=== PATIENT | male | born 1965 | race Caucasian/White ===

== ENCOUNTER 2017-02-15 17:37 | Inpatient (IN) | payer MEDICARE, MEDICAID ==
[~2017-02-15] VITALS: Ht 172.7 cm; Wt 81.1 kg
[~2017-02-15 17:37] MED LIST: DEPA500T3 PO; GABA100C4 PO; IBUP600 PO; METH500T3 PO; RISP0.5T20 PO
[2017-02-15 17:43] VITALS: BP 112/75; PULSE 81; RESP 16; TEMP 99.7; O2SAT 97
--- NOTE | 2017-02-15 18:02 | PD ---
HPI Chief Complaint: Suicide Ideation/Attempt Time Seen by Provider: 17:55 Travel History International Travel<30 days: No Contact w/Intl Traveler<30days: No Traveled to known affect area: No History of Present Illness HPI 51-year-old male came to the emergency room with history of racing thoughts, increasing agitation and suicidal ideation. His is here with him and says that he's been struggling with these symptoms for past few weeks. He went to the [facility] where they tried to adjust his medications. He also went to [facility] were also his medication was tried to be adjusted. Currently it has come to the point where nothing is helping and today he heard about the related to a suicide of a famous celebrity on TV and since then he has not been able to let go of appendicitis and the idea of killing himself. He has been unable to sit still and constantly fidgeting and dealing with racing thoughts. His was unable to take care of him like this and decided to bring him to the emergency room. Patient claims to be getting suicidal ideations and formulating a plan. He seems to be responding to internal stimuli as well. [facility] Past Medical History Narrative Medical List of his past medical, surgical, social and family history is reviewed from the nursing note. Anxiety: Yes Depression: Yes Cancer: No Cardiovascular Problems: Yes Chest Pain: Yes Diminished Hearing: Yes ([place]) Endocrine: No Genitourinary: No Musculoskeletal: Yes Neurologic: Yes (HYDROCEPHALUS) Psychiatric: No Reproductive: No Respiratory: No Schizophrenia: Yes Seizures: Yes Past Surgical History Cholecystectomy: Yes Genitourinary Surgery: Yes (HYDROCELE) Neurologic Surgery: Yes (APPLICATION PENETRATION TESTER SHUNT AND REVISION/MULTIPLE SUBDURAL/ANOTHER REVISION) Social History Alcohol Use: No Tobacco Use: No Substance Use: No Allergies-Medications (Allergen,Severity, Reaction): Coded Allergies: Chlorhexidine (Unverified Allergy, Severe, Rash, 02/15/17) Comments List of his allergies reviewed from the residential. Reported Meds & Prescriptions Reported Meds & Active Scripts Active Reported Benztropine (Benztropine Mesylate) 1 Mg Tab 1 Mg PO HS Thiamine (Thiamine HCl) 100 Mg Tab 100 Mg PO DAILY Primidone 50 Mg Tab 50 Mg PO TID Omeprazole 40 Mg Cap 40 Mg PO DAILY Montelukast (Montelukast Sodium) 10 Mg Tab 10 Mg PO HS Lamotrigine 25 Mg Chew 25 Mg CHEW BID Gabapentin 400 Mg Cap 400 Cap PO TID B-12 (Cyanocobalamin) 500 Mcg Tab 500 Mcg PO DAILY Baclofen 10 Mg Tab 10 Mg PO DAILY Alendronate (Alendronate Sodium) 70 Mg Tab 70 Mg PO Q7D Quetiapine (Quetiapine Fumarate) 25 Mg Tab 25 Mg PO DAILY Fluoxetine (Fluoxetine HCl) 20 Mg Cap 20 Mg PO DAILY Narrative Medication List of his home medications reviewed from the nursing note. Review of Systems Except as stated in HPI: all other systems reviewed are Neg Physical Exam Narrative GENERAL: Awake, alert, answering questions appropriately, constantly fidgeting in between SKIN: Focused skin assessment warm/dry. HEAD: Atraumatic. Normocephalic. EYES: Pupils equal and round. No scleral icterus. No injection or drainage. ENT: No nasal bleeding or discharge. Mucous membranes pink and moist. NECK: Trachea midline. No JVD. CARDIOVASCULAR: Regular rate and rhythm. No murmur appreciated. RESPIRATORY: No accessory muscle use. Clear to auscultation. Breath sounds equal bilaterally. GASTROINTESTINAL: Abdomen soft, non-tender, nondistended. Hepatic and splenic margins not palpable. MUSCULOSKELETAL: No obvious deformities. No clubbing. No cyanosis. No edema. NEUROLOGICAL: Awake and alert. No obvious cranial nerve deficits. Motor grossly within normal limits. Normal speech. PSYCHIATRIC: Appropriate mood and affect; insight and judgment normal. Pressure at speech, seems to be responding to internal stimuli Data Data Last Documented VS Vital Signs Date Time Temp Pulse Resp B/P Pulse Ox O2 Delivery O2 Flow Rate FiO2 02/16/17 06:00 68 18 104/60 96 Room Air 02/16/17 02:39 98.7 02/16/17 00:11 2 Orders Complete Blood Count With Diff (02/15/17 18:14) Comprehensive Metabolic Panel (02/15/17 18:14) Electrocardiogram (02/15/17 18:14) Psych Screen (02/15/17 18:14) Haloperidol Inj (Haldol Inj) (02/15/17 18:15) Lorazepam Inj (Ativan Inj) (02/15/17 18:15) Drug Screen, Random Urine (02/15/17 18:14) Diphenhydramine Inj (Benadryl Inj) (02/15/17 18:15) Sodium Chlor 0.9% 1000 Ml Inj (Ns 1000 M (02/15/17 21:30) Diet Regular Basic (02/16/17 Breakfast) Admit Order (Ed Use Only) (02/16/17 ) Admit To Inpatient Psych (02/16/17 ) Code Status (02/16/17 08:31) Vital Signs (Adult) JOSE MARIA.[email or web address].[id number] (02/16/17 08:31) Activity Oob Ad Delia (02/16/17 08:31) Level Of Observation (Psych) (02/16/17 08:31) Acetaminophen (Tylenol) (02/16/17 08:45) Magnesium Hydroxide Liq (Milk Of Magnesi (02/16/17 08:45) Al-Mag Hy-Si 40-40-4 Mg/Ml Liq (Mag-Al P (02/16/17 08:45) Basic Metabolic Panel (Bmp) (02/17/17 06:00) Lipid Profile (02/17/17 06:00) Hemoglobin (Hgb) A1c (02/17/17 06:00) Labs Laboratory Tests Test 02/15/17 02/15/17 18:35 18:45 Urine Opiates Screen NEG Urine Barbiturates Screen POS Urine Amphetamines Screen NEG Urine Benzodiazepines Screen NEG Urine Cocaine Screen NEG Urine Cannabinoids Screen NEG White Blood Count 6.4 TH/MM3 Red Blood Count 4.38 MIL/MM3 Hemoglobin 13.8 GM/DL Hematocrit 39.9 % Mean Corpuscular Volume 91.1 FL Mean Corpuscular Hemoglobin 31.4 PG Mean Corpuscular Hemoglobin 34.5 % Concent Red Cell Distribution Width 12.4 % Platelet Count 245 TH/MM3 Mean Platelet Volume 9.1 FL Neutrophils (%) (Auto) 67.9 % Lymphocytes (%) (Auto) 19.1 % Monocytes (%) (Auto) 9.7 % Eosinophils (%) (Auto) 2.6 % Basophils (%) (Auto) 0.7 % Neutrophils # (Auto) 4.4 TH/MM3 Lymphocytes # (Auto) 1.2 TH/MM3 Monocytes # (Auto) 0.6 TH/MM3 Eosinophils # (Auto) 0.2 TH/MM3 Basophils # (Auto) 0.0 TH/MM3 CBC Comment DIFF FINAL Differential Comment Sodium Level 141 MEQ/L Potassium Level 3.8 MEQ/L Chloride Level 108 MEQ/L Carbon Dioxide Level 23.6 MEQ/L Anion Gap 9 MEQ/L Blood Urea Nitrogen 18 MG/DL Creatinine 1.20 MG/DL Estimat Glomerular Filtration 64 ML/MIN Rate Random Glucose 104 MG/DL Calcium Level 8.9 MG/DL Total Bilirubin 0.3 MG/DL Aspartate Amino Transf 10 U/L (AST/SGOT) Alanine Aminotransferase 27 U/L (ALT/SGPT) Alkaline Phosphatase 127 U/L Total Protein 7.6 GM/DL Albumin 3.7 GM/DL MDM Medical Decision Making Medical Screen Exam Complete: Yes Emergency Medical Condition: Yes Medical Record Reviewed: Yes Interpretation(s) Twelve-lead EKG was reviewed by me. Normal sinus rhythm, normal axis, nonspecific ST-T wave changes. Heart rate of 81 bpm. Differential Diagnosis Psychosis, major depression, suicidal ideation Narrative Course 6:28 PM I'm planning to [place] act this patient. He will receive IM Haldol and Ativan to calm him down so that he does not escalate any further. Awaiting for medical clearance. Eventually he needs to be transferred to the main hospital to be seen by psych. In my opinion this patient should be admitted to inpatient psych since he is failing outpatient treatment. 7 PM case will be signed over to the oncoming ER physician. Procedures EKG Prior to Arrival: No Diagnosis Primary Impression: Psychosis Qualified Code: F29 - Psychosis, unspecified psychosis type Additional Impressions: Depression Qualified Code: F32.9 - Depression, unspecified depression type Suicidal ideation Failure of outpatient treatment Jovanny Dickson MD February 15, 2017 18:02
[2017-02-15] MEDS ORDERED: THIA100T PO (18:14)
[2017-02-15] MEDS ORDERED: OMEP40CA2 PO (18:14)
[2017-02-15] MEDS ORDERED: QUET1TAB7 PO (18:14)
[2017-02-15] MEDS ORDERED: [UNRECOGNIZED DRUG - CODE] PO (18:14)
[2017-02-15] MEDS ORDERED: FLUO20CA4 PO (18:14)
[2017-02-15] MEDS ORDERED: BACL10TA PO (18:14)
[2017-02-15] MEDS ORDERED: LAMO25CH CHEW (18:14)
[2017-02-15] MEDS ORDERED: MONT10TA4 PO (18:14)
[2017-02-15] MEDS ORDERED: PRIM50TA5 PO (18:14)
[2017-02-15] MEDS ORDERED: BENZ1TAB PO (18:14)
[2017-02-15] MEDS ORDERED: GABA400C5 PO (18:14)
[2017-02-15] MEDS ORDERED: ALEN1TAB48 PO (18:14)
[2017-02-15] MEDS ORDERED: LORazepam 2 MG/ML VIAL IM ONE (18:15)
[2017-02-15] MEDS ORDERED: HALOPERIDOL LACTATE 5 MG/ML AMP IM ONE (18:15)
[2017-02-15] MEDS ORDERED: diphenhydrAMINE HCL 50 MG/ML VIAL IM ONE (18:15)
[2017-02-15 18:51] LABS: AUTOMATED NEUTROPHIL # 4.4 TH/MM3 (1.8-7.7); BASOPHIL % 0.7 % (0.0-2.0); EOSINOPHIL # 0.2 TH/MM3 (0-0.4); EOSINOPHIL % 2.6 % (0.0-4.0); HEMATOCRIT 39.9 % (39.0-51.0); HEMO FLAGS DIFF FINAL; LYMPH % 19.1 % (9.0-44.0); LYMPHOCYTE # 1.2 TH/MM3 (1.0-4.8); MEAN CELL VOLUME 91.1 FL (80.0-100.0); MEAN CORPUSCULAR HEMOGLOBIN 31.4 PG (27.0-34.0); MEAN CORPUSCULAR HGB CONC 34.5 % (32.0-36.0); MONO % 9.7 % (0.0-8.0); NEUT % 67.9 % (16.0-70.0); PLATELET COUNT 245 TH/MM3 (150-450); RED BLOOD COUNT 4.38 MIL/MM3 (4.50-5.90); RED CELL DISTRIBUTION WIDTH 12.4 % (11.6-17.2); WHITE BLOOD COUNT 6.4 TH/MM3 (4.0-11.0)
[2017-02-15 18:59] LABS: CHLORIDE 108 MEQ/L (98-107); POTASSIUM 3.8 MEQ/L (3.5-5.1); SODIUM (NA) 141 MEQ/L (136-145)
[2017-02-15 19:02] LABS: ANION GAP 9 MEQ/L (5-15); BICARBONATE 23.6 MEQ/L (21.0-32.0); BLOOD UREA NITROGEN 18 MG/DL (7-18)
[2017-02-15 19:05] LABS: ALT (GPT) 27 U/L (12-78); AST (GOT) 10 U/L (15-37); GLOMERULAR FILTRATION RATE 64 ML/MIN (>89)
[2017-02-15 19:07] LABS: TOTAL BILIRUBIN ADULT 0.3 MG/DL (0.2-1.0)
[2017-02-15 19:08] LABS: ALKALINE PHOSPHATASE 127 U/L (45-117)
--- NOTE | 2017-02-15 19:08 | PD ---
Physical Exam Date Seen by Provider: February 15, 2017 Time Seen by Provider: 19:06 Narrative accepted in transfer of care from Dr Dickson GENERAL: Well-developed well-nourished male in no acute distress no respiratory distress; awakens with tactile and verbal stimulation after medication administration; patient cooperative no longer agitated. SKIN: Warm and dry. HEAD: Normocephalic. EYES: No scleral icterus. No injection or drainage. Bilateral pupils equal round reactive to light. NECK: Supple, trachea midline. No JVD or lymphadenopathy. CARDIOVASCULAR: Regular rate and rhythm without murmurs, gallops, or rubs. RESPIRATORY: Breath sounds equal bilaterally. No accessory muscle use. GASTROINTESTINAL: Abdomen soft, non-tender, nondistended. MUSCULOSKELETAL: No cyanosis, or edema. BACK: Nontender without obvious deformity. No CVA tenderness. Data Data Last Documented VS Vital Signs Date Time Temp Pulse Resp B/P Pulse Ox O2 Delivery O2 Flow Rate FiO2 02/16/17 01:16 71 18 108/75 98 02/16/17 00:11 Nasal Cannula 2 02/15/17 20:22 97.6 Orders Complete Blood Count With Diff (02/15/17 18:14) Comprehensive Metabolic Panel (02/15/17 18:14) Electrocardiogram (02/15/17 18:14) Psych Screen (02/15/17 18:14) Haloperidol Inj (Haldol Inj) (02/15/17 18:15) Lorazepam Inj (Ativan Inj) (02/15/17 18:15) Drug Screen, Random Urine (02/15/17 18:14) Diphenhydramine Inj (Benadryl Inj) (02/15/17 18:15) Sodium Chlor 0.9% 1000 Ml Inj (Ns 1000 M (02/15/17 21:30) Labs Laboratory Tests Test 02/15/17 02/15/17 18:35 18:45 Urine Opiates Screen NEG Urine Barbiturates Screen POS Urine Amphetamines Screen NEG Urine Benzodiazepines Screen NEG Urine Cocaine Screen NEG Urine Cannabinoids Screen NEG White Blood Count 6.4 TH/MM3 Red Blood Count 4.38 MIL/MM3 Hemoglobin 13.8 GM/DL Hematocrit 39.9 % Mean Corpuscular Volume 91.1 FL Mean Corpuscular Hemoglobin 31.4 PG Mean Corpuscular Hemoglobin 34.5 % Concent Red Cell Distribution Width 12.4 % Platelet Count 245 TH/MM3 Mean Platelet Volume 9.1 FL Neutrophils (%) (Auto) 67.9 % Lymphocytes (%) (Auto) 19.1 % Monocytes (%) (Auto) 9.7 % Eosinophils (%) (Auto) 2.6 % Basophils (%) (Auto) 0.7 % Neutrophils # (Auto) 4.4 TH/MM3 Lymphocytes # (Auto) 1.2 TH/MM3 Monocytes # (Auto) 0.6 TH/MM3 Eosinophils # (Auto) 0.2 TH/MM3 Basophils # (Auto) 0.0 TH/MM3 CBC Comment DIFF FINAL Differential Comment Sodium Level 141 MEQ/L Potassium Level 3.8 MEQ/L Chloride Level 108 MEQ/L Carbon Dioxide Level 23.6 MEQ/L Anion Gap 9 MEQ/L Blood Urea Nitrogen 18 MG/DL Creatinine 1.20 MG/DL Estimat Glomerular Filtration 64 ML/MIN Rate Random Glucose 104 MG/DL Calcium Level 8.9 MG/DL Total Bilirubin 0.3 MG/DL Aspartate Amino Transf 10 U/L (AST/SGOT) Alanine Aminotransferase 27 U/L (ALT/SGPT) Alkaline Phosphatase 127 U/L Total Protein 7.6 GM/DL Albumin 3.7 GM/DL [facility] Medical Record Reviewed: Yes Supervised Visit with ARAMIS: No Interpretation(s) CBC & BMP Diagram 02/15/17 18:45 Vital Signs Date Time Temp Pulse Resp B/P Pulse Ox O2 Delivery O2 Flow Rate FiO2 02/15/17 19:11 75 18 02/15/17 19:11 72 18 118/72 97 Room Air 02/15/17 17:43 99.7 81 16 112/75 97 uds: Barbiturates Differential Diagnosis accepted in transfer of care from Dr Dickson, please refer to her dictation Narrative Course accepted in transfer of care from Dr Dickson; awaiting labs for medical clearance and then transfer to [facility] for psychiatric evaluation At 7:30 PM patient's labs have been resulted and found to be grossly within normal range drug screen does show barbiturates; patient remains cooperative; in view of escalation of psychosis per prior provider patient has received Haldol and Ativan and Benadryl. Patient has been waiting for lab results and is aware he will be sent to [facility] for further mental health evaluation for has worsening depression and suicidal ideation. Patient is Medically Cleared for [facility] from [facility] to [facility]. Patient discussed with intake psych-screener/provider. reports that patient does take Fioricet for chronic headaches and took a dose today before coming to the hospital. does report that patient was seen for headaches and agitation at the end of December at [facility] where he is followed and had extensive evaluation and shunt shunt series and multiple imaging studies were all found to be normal neurosurgeon and specialist did not feel that his agitation depression and suicidal ideation was related to his history of hydrocephalus or DRY JANITOR shunt. No recent infectious process. At 21:20 PM told by patient's nurse at blood pressure has dropped to 80 systolic and at bedside states that patient frequently has low blood pressure especially when sleeping; patient given fluid bolus normal saline 1 L J Pod RN notified --holding patient transfer from [facility] to [facility] until patient more awake and medication effect diminished @ 12:30 patient remains drowsy after receiving Haldol Ativan and Benadryl as well as having taken Fioricet prior to arrival to the emergency department therefore patient also medically cleared initially for psych evaluation to go to [facility] now remains to drowsy to be assessed by psych screener therefore plan will be to transfer to [facility] from [facility] and reassessed while still in the emergency department as drowsiness appears to be an effect of combination of administered medications that are still causing somnolence. Physician Communication Physician Communication discussed with psych screenerKirsten RN, for J pod Diagnosis Primary Impression: Psychosis Qualified Code: F29 - Psychosis, unspecified psychosis type Additional Impressions: Suicidal ideation Depression Qualified Code: F32.9 - Depression, unspecified depression type Failure of outpatient treatment Fouzia Diane MD February 15, 2017 19:08
[2017-02-15 19:11] VITALS: BP 118/72; PULSE 72; RESP 18; O2SAT 97
[2017-02-15 19:13] LABS: AMPHETAMINE, URINE NEG (NEG)
[2017-02-15 19:15] LABS: BARBITURATES, URINE POS (NEG)
[2017-02-15 19:19] LABS: COCAINE, URINE NEG (NEG)
[2017-02-15 20:22] VITALS: BP 109/65; PULSE 76; RESP 18; TEMP 97.6; O2SAT 90
[2017-02-15] MEDS ORDERED: SODIUM CHLOR 0.9% 1000 ML INJ 1,000 ML IV ONE (21:30)
[2017-02-15 22:10] VITALS: BP 107/71; PULSE 74; RESP 18; O2SAT 99
[2017-02-16] VITALS (7 sets, daily range): BP systolic 104–184; BP diastolic 60–96; PULSE 57–91; RESP 16–18; TEMP 97.9–98.7; O2SAT 96–100
[2017-02-16] MEDS ORDERED: MAGNESIUM HYDROXIDE SUSP 30 ML CUP PO PRN ×2 (08:45→09:15)
[2017-02-16] MEDS ORDERED: ACETAMINOPHEN 325 MG TAB PO PRN (08:45)
[2017-02-16] MEDS ORDERED: ALUMINUM/MAGNESIUM/SIMETH 30 ML CUP PO PRN ×2 (08:45→09:15)
[2017-02-16] MEDS ORDERED: LORazepam 2 MG/ML VIAL IM PRN ×2 (09:15)
[2017-02-16] MEDS ORDERED: NICOTINE 21 MG/24 HR PATCH T-DERMAL SCH (09:15)
[2017-02-16] MEDS ORDERED: LORazepam 0.5 MG TAB PO PRN (09:15)
[2017-02-16] MEDS ORDERED: ALENDRONATE SODIUM 70 MG TAB PO SCH (13:15)
[2017-02-16] MEDS ORDERED: PILL SPLITTER OTHER PRN (14:00)
--- NOTE | 2017-02-16 15:47 | HHI.HP ---
Provisional Diagnosis Admission Date February 16, 2017 at 08:33 Garner I. Schizophrenia vs schizoaffective disorder Garner II. Deferred Garner III. UTI, HTN, seizures Garner IV. Family conflicts Garner V. 35 Certification of Person's Competence To Provide Express and Informed Consent I have personally examined Behzad Cintron , a person being served at [facility] on, February 16, 2017 15:32. Express and informed consent means consent voluntarily given in writing, by a competent person, after sufficient explanation and disclosure of the subject matter involved to enable the person to make a knowing and willful decision without any element of force, fraud, deceit, duress, or other form of constraint or coercion. This person is 18 years of age or older, is not now known to be incompetent to consent to treatment with a guardian advocate, and does not have a health care surrogate or proxy currently making medical treatment decisions. I have found this person to be one of the following: [] Competent to provide express and informed consent, as defined above, for voluntary admission to this facility and is competent to provide express and informed consent for treatment. He/she has the consistent capacity to make well reasoned, willful, and knowing decisions concerning his or her medical or mental health treatment. The person fully and consistently understands the purpose of the admission for examination/placement and is fully capable of personally exercising all rights assured under [place] Incompetent to provide express and informed consent to voluntary admission, and this is incompetent to provide express and informed consent to treatment. The person must be transferred to involuntary status and a petition for a guardian advocate filed with the Circuit Court. [X] Refusing to provide express and informed consent to voluntary admission but is competent to provide express and informed consent for treatment. The person must be discharged or transferred to involuntary status. Form shall be completed within 24 hours of a person's arrival at the receiving facility and filed in the clinical record of each person: 1. Admitted on a voluntary basis 2. Permitted to provide express and informed consent to his/her own treatment 3. Allowed to transfer from involuntary to voluntary status 4. Prior to permitting a person to consent to his or her own treatment after having been previously found incompetent to consent to treatment. History of Present Illness Capacity: Has Capacity HPI The patient is a 51-year-old man, domicile with his in [place], he has 2 kids, his unemployed, on SSI, with psychiatric history of schizophrenia, previous hospitalizations, no suicidal attempts, he is on Seroquel 50 mg, Prozac 20 mg, gabapentin 400 mg 3 times a day, he has medical history of TBI and seizures, who came to the emergency room with history of racing thoughts, increasing agitation and suicidal ideation. His is here with him and says that he's been struggling with these symptoms for past few weeks. He went to the [facility] where they tried to adjust his medications. He also went to [facility] ([facility] were also his medication was tried to be adjusted. Currently it has come to the point where nothing is helping and today he heard about the related to a suicide of a famous celebrity on TV and since then he has not been able to let go of appendicitis and the idea of killing himself. He has been unable to sit still and constantly fidgeting and dealing with racing thoughts of killing himself. His was unable to take care of him like this and decided to bring him to the emergency room. Patient claims to be getting suicidal ideations and formulating a plan. He seems to be responding to internal stimuli as well. Patient says that his main stressor is that he has a son who left his house since October and he doesn't know anything about his son since then. He also says that another stressor is that his house is full of rats. Patient seems to be very distressed, at times perplexed, guarded and internally stimulated. He doesn't have any specific suicidal plan," but I could not stop thinking about". He is oriented 3, no attention deficit, no gross cognitive impairment observed. Patient denies the use of illicit drugs and alcohol. Review of Systems Constitutional: DENIES: Diaphoretic episodes, Fatigue, Fever, Weight gain, Weight loss, Chills, Dizziness, Change in appetite, Night Sweats Endocrine: DENIES: Heat/cold intolerance, Polydipsia, Polyuria, Polyphagia Eyes: DENIES: Blurred vision, Diplopia, Eye inflammation, Eye pain, Vision loss , Photosensitivity, Double Vision Ears, nose, mouth, throat: DENIES: Tinnitus, Hearing loss, Vertigo, Nasal discharge, Oral lesions, Throat pain, Hoarseness, Ear Pain, Running Nose, Epistaxis, Sinus Pain, Toothache, Odynophagia Respiratory: DENIES: Apneas, Cough, Snoring, Wheezing, Hemoptysis, Sputum production, Shortness of breath Cardiovascular: DENIES: Chest pain, Palpitations, Syncope, Dyspnea on Exertion , PND, Lower Extremity Edema, Orthopnea, Claudication Gastrointestinal: DENIES: Abdominal pain, Black stools, Bloody stools, Constipation, Diarrhea, Nausea, Vomiting, Difficulty Swallowing, Anorexia Genitourinary: DENIES: Sexual dysfunction, Urinary frequency, Urinary incontinence, Urgency, Hematuria, Dysuria, Nocturia, Penile Discharge, Testicular Pain, Testicular Swelling Musculoskeletal: DENIES: Joint pain, Muscle aches, Stiffness, Joint Swelling, Back pain, Neck pain Integumentary: DENIES: Abnormal pigmentation, Nail changes, Pruritus, Rash Hematologic/lymphatic: DENIES: Bruising, Lymphadenopathy Immunologic/allergic: DENIES: Eczema, Urticaria Neurologic: DENIES: Abnormal gait, Headache, Localized weakness, Paresthesias, Seizures, Speech Problems, Tremor, Poor Balance Psychiatric: COMPLAINS OF: Depression, Suicidal Ideation, DENIES: Anxiety, Confusion, Mood changes, Hallucinations, Agitation, Homicidal Ideation, Delusions Past Psych History Violence risk - self (6 mos) Increased risk Substance Abuse History Drugs/Alcohol past 12 months He denies the use of drugs and alcohol Past Family Social History Coded Allergies: Chlorhexidine (Unverified Allergy, Severe, Rash, 02/15/17) Reported Medications Benztropine 1 Mg Tab1 Mg PO HS #30 TAB Ref 0 02/15/17 Thiamine 100 Mg [id number] Mg PO DAILY Ref 0 02/15/17 Primidone 50 Mg Tab50 Mg PO TID #60 TAB Ref 0 02/15/17 Omeprazole 40 Mg Cap40 Mg PO DAILY #30 CAP Ref 0 02/15/17 Montelukast 10 Mg Tab10 Mg PO HS #30 TAB Ref 0 02/15/17 Lamotrigine 25 Mg Chew25 Mg CHEW BID #60 TAB Ref 0 02/15/17 Gabapentin 400 Mg [id number] Cap PO TID #30 CAP Ref 0 02/15/17 Cyanocobalamin (B-12)500 Mcg Oei099 Mcg PO DAILY #1 BOTTLE Ref 0 02/15/17 Baclofen 10 Mg Tab10 Mg PO DAILY Ref 0 02/15/17 Alendronate 70 Mg Tab70 Mg PO Q7D #4 TAB Ref 0 02/15/17 Quetiapine 25 Mg Tab25 Mg PO DAILY #30 TAB Ref 0 02/15/17 Fluoxetine 20 Mg Cap20 Mg PO DAILY #30 CAP Ref 0 02/15/17 Current Medications Medications (Trade) Dose Ordered Sig/Kang Route Start Time Stop Time Status Last Admin (Ativan) 1 mg Q6H PRN PO 02/16/17 09:15 (Ativan Inj) 1 mg Q6H PRN IM 02/16/17 09:15 (Tylenol) 650 mg Q4H PRN PO 02/16/17 09:15 (Milk Of Magnesia Liq) 30 ml DAILY PRN PO 02/16/17 09:15 (Mag-Al Plus Susp Liq) 30 ml Q6H PRN PO 02/16/17 09:15 (Lioresal) 10 mg DAILY PO 02/16/17 13:15 (Cogentin) 1 mg HS PO 02/16/17 21:00 (Vitamin B12) 500 mcg DAILY PO 02/16/17 13:45 (PROzac) 20 mg DAILY PO 02/16/17 13:15 (Neurontin) 400 mg TID PO 02/16/17 18:00 (Singulair) 10 mg HS PO 02/16/17 21:00 (Mysoline) 50 mg TID PO 02/16/17 18:00 (SEROquel) 25 mg DAILY PO 02/16/17 13:15 (Vitamin B1) 100 mg DAILY PO 02/16/17 13:15 (LaMICtal) 25 mg BID PO 02/16/17 14:00 (Protonix) 40 mg DAILY PO 02/16/17 14:00 (Pill Splitter) 1 ea UNSCH PRN OTHER 02/16/17 14:00 Family History Patient denies psychiatric family history Social History Patient was born and raised in [place], he lives in [place] with , he has 2 kids, his college graduate, unemployed at this moment, on SSI Physical Exam A physical exam there is no EPS, no psychomotor retardation or agitation, no tremors, Vital Signs Vital Signs Date Time Temp Pulse Resp B/P Pulse Ox O2 Delivery O2 Flow Rate FiO2 02/16/17 10:48 98.6 72 16 131/70 98 02/16/17 06:00 Room Air 02/16/17 00:11 2 I/O 02/15/17 02/15/17 02/16/17 08:00 16:00 00:00 Intake Total 1000 ml Balance 1000 ml Lab Results Toxicology is positive for barbiturates, WBC is 6.4, Hgb 13.8, HCT 39, NA 141, K is 3.8, BUN 18, creatinine 1.2, AST 10, ALT 27 Mental Status Examination Appearance man, [facility], good hygiene, he seems to be restless, preoccupied, his cooperative Speech: Hesitant, Slow Orientation: x3 Memory: Unremarkable Thought Process: Logical, Goal Directed, Linear Thought Content: Unremarkable, Paranoid, Obsessions Language Reticent, constricted Attention and Concentration: Good Attention Remarks No attention deficit Suicidal Ideation: Yes (no specific plan) Previous Suicide Attempts: No Homicidal Ideation: No Previous Homicide Attempts: No Judgment: Poor Affect if Inappropriate: Blunt Mood: Irritable Motor Activity: Normal gait Assessment & Plan Problem List: (1) Psychosis Assessment & Plan: Psychiatric evaluation today patient seems to be internally stimulated, guarded, restless. Patient reports obsessive and intrusive thoughts of committing suicide, he doesn't have any intentions or plans. Some of his preoccupation seems to be valid, example he says that he has a son who has been disappear since October, in the other hand he says that "my house is full of rats". More collateral information will be important in order to complete psychiatric assessment and delineate what is real of what is not. However, patient seems to be acutely psychotic, with suicidal thoughts, his has expressed by phone to the ER team that she is very concerned about patient's mental health, so at this moment patient represents an acute danger to himself and he needs to be admitted in psychiatry for stabilization and safety. Will ask consult to psychiatry for a second opinion. I will restart his psychotropic benztropine 1 mg twice a day, gabapentin 400 mg 3 times a day, Prozac 20 mg, Seroquel 25 mg, lamotrigine 25 members twice a day. preparation room worker intervention for psychosocial assessment, collateral information, individual and group therapy, to start a safe discharge plan.. Extensive psycho education, supportive motivation provided. We will consult hospitalist to help with underlying medical conditions treatment. ICD Code: F29 Assessment & Plan Estimated LOS: days Problem Qualifiers (1) Psychosis: Qualified Code: F29 - Psychosis, unspecified psychosis type Angel Luis Cleaning MD February 16, 2017 15:47
[2017-02-16] MEDS: THIAMINE HCL 100 MG TAB PO SCH (16:00)
--- NOTE | 2017-02-16 16:00 | PD.CONS ---
HPI Service [facility] Hospitalists Consult Requested By Psychiatric service Reason for Consult Medical management Primary Care Physician Non-Staff Diagnoses: History of Present Illness Written by Debbi Castillo PA-C acting as scribe for Dr. Marvin on 02/16/17 at 16:03. 51 yo male with schizophrenia, history of hydrocephalus, TBI, seizure disorders , GERD, anxiety and depression admitted to psychiatric unit for issues with racing thoughts, increasing agitation and suicidal ideation. Patients reports patient has been struggling with these symptoms for weeks that became much worse today after he heard about the suicide of famous TV celebrity. Hospitalist services were consulted for medical management. Patient reports episodes of dizziness upon standing and bending over. He denies any associated shortness of breath, headache, chest pain, N/V, abdominal pain or vision changes. Patient denies any other complaints at this time. Review of Systems Except as stated in HPI: all other systems reviewed are Neg Past Family Social History Allergies: Coded Allergies: Chlorhexidine (Unverified Allergy, Severe, Rash, 02/15/17) Past Medical History Schizophrenia GERD Anxiety Depression Hydrocephalus Past Surgical History Cholecystectomy Hydrocele surgery STRAP STITCHER shunt and multiple revisions Reported Medications Benztropine 1 Mg Tab1 Mg PO HS #30 TAB Ref 0 02/15/17 Thiamine 100 Mg [id number] Mg PO DAILY Ref 0 02/15/17 Primidone 50 Mg Tab50 Mg PO TID #60 TAB Ref 0 02/15/17 Omeprazole 40 Mg Cap40 Mg PO DAILY #30 CAP Ref 0 02/15/17 Montelukast 10 Mg Tab10 Mg PO HS #30 TAB Ref 0 02/15/17 Lamotrigine 25 Mg Chew25 Mg CHEW BID #60 TAB Ref 0 02/15/17 Gabapentin 400 Mg [id number] Cap PO TID #30 CAP Ref 0 02/15/17 Cyanocobalamin (B-12)500 Mcg Mlm898 Mcg PO DAILY #1 BOTTLE Ref 0 02/15/17 Baclofen 10 Mg Tab10 Mg PO DAILY Ref 0 02/15/17 Alendronate 70 Mg Tab70 Mg PO Q7D #4 TAB Ref 0 02/15/17 Quetiapine 25 Mg Tab25 Mg PO DAILY #30 TAB Ref 0 02/15/17 Fluoxetine 20 Mg Cap20 Mg PO DAILY #30 CAP Ref 0 02/15/17 Active Ordered Medications Current Medications Medications (Trade) Dose Ordered Sig/Kang Route Start Time Stop Time Status Last Admin (Ativan) 1 mg Q6H PRN PO 02/16/17 09:15 (Ativan Inj) 1 mg Q6H PRN IM 02/16/17 09:15 (Tylenol) 650 mg Q4H PRN PO 02/16/17 09:15 (Milk Of Magnesia Liq) 30 ml DAILY PRN PO 02/16/17 09:15 (Mag-Al Plus Susp Liq) 30 ml Q6H PRN PO 02/16/17 09:15 (Lioresal) 10 mg DAILY PO 02/16/17 13:15 (Cogentin) 1 mg HS PO 02/16/17 21:00 (Vitamin B12) 500 mcg DAILY PO 02/16/17 13:45 (PROzac) 20 mg DAILY PO 02/16/17 13:15 (Neurontin) 400 mg TID PO 02/16/17 18:00 (Singulair) 10 mg HS PO 02/16/17 21:00 (Mysoline) 50 mg TID PO 02/16/17 18:00 (SEROquel) 25 mg DAILY PO 02/16/17 13:15 (Vitamin B1) 100 mg DAILY PO 02/16/17 13:15 (LaMICtal) 25 mg BID PO 02/16/17 14:00 (Protonix) 40 mg DAILY PO 02/16/17 14:00 (Pill Splitter) 1 ea UNSCH PRN OTHER 02/16/17 14:00 Family History CAD, father in his 40s, age 54 Social History Patient denies any tobacco use, alcohol consumption or illicit drug use. Patient is and lives with his and 2 children. He is currently unemployed, on SSI. Physical Exam Vital Signs Vital Signs Date Time Temp Pulse Resp B/P Pulse Ox O2 Delivery O2 Flow Rate FiO2 02/16/17 10:48 98.6 72 16 131/70 98 02/16/17 10:40 97.9 84 16 118/71 02/16/17 06:00 68 18 104/60 96 Room Air 02/16/17 02:39 98.7 57 18 137/80 98 Room Air 02/16/17 01:16 71 18 108/75 98 02/16/17 00:11 60 18 100 Nasal Cannula 2 02/16/17 00:11 60 18 107/74 100 Nasal Cannula 2 02/15/17 22:10 74 18 107/71 99 Nasal Cannula 2 02/15/17 22:10 74 18 99 Nasal Cannula 2 02/15/17 20:22 97.6 76 18 109/65 90 Nasal Cannula 2 02/15/17 20:22 76 18 96 Room Air 02/15/17 19:11 75 18 02/15/17 19:11 72 18 118/72 97 Room Air 02/15/17 17:43 99.7 81 16 112/75 97 Physical Exam GENERAL: This is a well-nourished, well-developed patient, in no apparent distress. Awake and alert. SKIN: No rashes, ecchymoses or lesions. Cool and dry. HEAD: Atraumatic. Normocephalic. No temporal or scalp tenderness. EYES: Pupils equal round and reactive. Extraocular motions intact. No scleral icterus. No injection or drainage. ENT: Nose without bleeding, purulent drainage or septal hematoma. Throat without erythema, tonsillar hypertrophy or exudate. Uvula midline. Airway patent. NECK: Trachea midline. No lymphadenopathy. Supple, nontender, no meningeal signs. CARDIOVASCULAR: Regular rate and rhythm without murmurs, gallops, or rubs. RESPIRATORY: Clear to auscultation. Breath sounds equal bilaterally. No wheezes , rales, or rhonchi. GASTROINTESTINAL: Abdomen soft, non-tender, nondistended. No hepato-splenomegaly , or palpable masses. No guarding. MUSCULOSKELETAL: Extremities without clubbing, cyanosis, or edema. No joint tenderness, effusion, or edema noted. No calf tenderness. NEUROLOGICAL: Awake and alert. Able to move all extremities. No focal neurologic findings appreciated. Normal speech. Laboratory Laboratory Tests Test 02/15/17 02/15/17 18:35 18:45 Urine Opiates Screen NEG Urine Barbiturates Screen POS Urine Amphetamines Screen NEG Urine Benzodiazepines Screen NEG Urine Cocaine Screen NEG Urine Cannabinoids Screen NEG White Blood Count 6.4 Red Blood Count 4.38 Hemoglobin 13.8 Hematocrit 39.9 Mean Corpuscular Volume 91.1 Mean Corpuscular Hemoglobin 31.4 Mean Corpuscular Hemoglobin 34.5 Concent Red Cell Distribution Width 12.4 Platelet Count 245 Mean Platelet Volume 9.1 Neutrophils (%) (Auto) 67.9 Lymphocytes (%) (Auto) 19.1 Monocytes (%) (Auto) 9.7 Eosinophils (%) (Auto) 2.6 Basophils (%) (Auto) 0.7 Neutrophils # (Auto) 4.4 Lymphocytes # (Auto) 1.2 Monocytes # (Auto) 0.6 Eosinophils # (Auto) 0.2 Basophils # (Auto) 0.0 CBC Comment DIFF FINAL Differential Comment Sodium Level 141 Potassium Level 3.8 Chloride Level 108 Carbon Dioxide Level 23.6 Anion Gap 9 Blood Urea Nitrogen 18 Creatinine 1.20 Estimat Glomerular Filtration 64 Rate Random Glucose 104 Calcium Level 8.9 Total Bilirubin 0.3 Aspartate Amino Transf 10 (AST/SGOT) Alanine Aminotransferase 27 (ALT/SGPT) Alkaline Phosphatase 127 Total Protein 7.6 Albumin 3.7 Result Diagram: 02/15/17184402/15/171844 Assessment and Plan Assessment and Plan 51 yo male with schizophrenia, history of hydrocephalus, TBI, seizure disorders , GERD, anxiety and depression admitted to psychiatric unit for issues with racing thoughts, increasing agitation and suicidal ideation. Patients reports patient has been struggling with these symptoms for weeks that became much worse today after he heard about the suicide of famous TV celebrity. Hospitalist services were consulted for medical management. Schizophrenia in patient with depression and anxiety with recent suicidal ideation - Management per psychiatric team History of TBI/hydrocephalus/seizure disorder - Continue with antiseizure medications - obtain Lamotrigine level Dizziness with postural changes - obtain orthostatic BP measurements GERD - Continue with PPI DVT prophylaxis - encourage ambulation This note was transcribed by gaudencio Castillo PA-C. I, Dr. Angelito Patton personally performed the history, physical exam, and medical decision making; and confirmed the accuracy of the information in the transcribed note. Authenticated by Dr. Angelito Patton on 02/16/17 at 16:37 Debbi Castillo February 16, 2017 16:00 Angelito Yeung MD February 28, 2017 23:59
[2017-02-16] MEDS: lamoTRIgine 25 MG TAB PO SCH ×2 (16:07→20:23)
[2017-02-16] MEDS: FLUoxetine HCL 20 MG CAP PO SCH (16:07)
[2017-02-16] MEDS: BACLOFEN 10 MG TAB PO SCH (16:07)
[2017-02-16] MEDS: CYANOCOBALAMIN 1,000 MCG TAB PO SCH (16:07)
[2017-02-16] MEDS: QUEtiapine FUMARATE 25 MG TAB PO SCH (16:08)
[2017-02-16] MEDS: PANTOPRAZOLE SOD 40 MG DELAYED RELEASE TAB PO SCH (16:08)
[2017-02-16] MEDS: GABAPENTIN 400 MG CAP PO SCH (19:00)
[2017-02-16] MEDS: PRIMIDONE 50 MG TAB PO SCH (19:00)
[2017-02-16] MEDS: MONTELUKAST SODIUM 10 MG TAB PO SCH (20:23)
[2017-02-16] MEDS ORDERED: BENZTROPINE MESYLATE 1 MG TAB PO SCH (21:00)
--- NOTE | 2017-02-16 21:39 | EKG ---
Date Performed: 02/15/2017 Time Performed: 18:12:20 PTAGE: 51 years EKG: Sinus rhythm Normal ECG PREVIOUS TRACING : 04/16/2014 08.58 Compared to prior tracing no significant change DOCTOR: Eder Griffin Interpretating Date/Time 02/16/2017 21:37:56
[2017-02-17 04:44] VITALS: BP_SYST 140; BP_SYST 144; BP_DIAS 83; BP_DIAS 94; PULSE 95; RESP 16; TEMP 97.9; O2SAT 98
[2017-02-17 08:57] LABS: ANION GAP 9 MEQ/L (5-15); BLOOD UREA NITROGEN 10 MG/DL (7-18); CHLORIDE 104 MEQ/L (98-107); GLOMERULAR FILTRATION RATE 67 ML/MIN (>89); HDL CHOLESTEROL 53.8 MG/DL (40.0-60.0); LDL CHOLESTEROL 136 MG/DL (0-99); POTASSIUM 3.9 MEQ/L (3.5-5.1); SODIUM (NA) 140 MEQ/L (136-145)
[2017-02-17] MEDS: BACLOFEN 10 MG TAB PO SCH (09:00)
[2017-02-17] MEDS: THIAMINE HCL 100 MG TAB PO SCH (09:00)
[2017-02-17] MEDS: PRIMIDONE 50 MG TAB PO SCH ×3 (10:30→17:43)
[2017-02-17] MEDS: GABAPENTIN 400 MG CAP PO SCH ×3 (10:30→17:43)
[2017-02-17] MEDS: lamoTRIgine 25 MG TAB PO SCH ×2 (10:30→21:19)
[2017-02-17] MEDS: FLUoxetine HCL 20 MG CAP PO SCH (10:30)
[2017-02-17] MEDS: QUEtiapine FUMARATE 25 MG TAB PO SCH (10:30)
[2017-02-17] MEDS: PANTOPRAZOLE SOD 40 MG DELAYED RELEASE TAB PO SCH (10:31)
[2017-02-17] MEDS: CYANOCOBALAMIN 1,000 MCG TAB PO SCH (10:31)
[2017-02-17 13:36] LABS: HEMOGLOBIN A1a 0.9 %; HEMOGLOBIN A1b 1.6 %; HEMOGLOBIN Ao 86.1 %; HEMOGLOBIN P3 5.1 %
--- NOTE | 2017-02-17 13:55 | HHI.PYPN ---
Subjective Remarks This is a request for second opinion. Patient was seen, case discussed with nursing, and admission note reviewed, patient describes various stressors that are contributing to his suicidal ideation. His son, feeling like a failure, that life would be better without him. Continues to have fleeting suicidal thoughts with no intent or plan. Denies a history of suicide attempts. Patient appears anxious tapping his feet moving his hands possibility of akathisia, however he also has a seizure disorder and is on a low-dose of antipsychotic. Auditory hallucinations, and go are not command and tell him things like yes or no. No delusions elicited. Objective Alert: Yes [place]: Person, Place, Date Mood: Calm Affect: Blunted Memory Intact: Comment (grossly intact) Hallucinations: Auditory (tell him yes or no) Delusions: No Delusion Type: Other Suicidal: Ideation (fleeting with no intent or plan, seen engaging with others) Homicidal: Ideation (denies) Insight/Judgment Fair Labs Test 02/17/17 07:25 Sodium Level 140 MEQ/L Potassium Level 3.9 MEQ/L Chloride Level 104 MEQ/L Carbon Dioxide Level 27.0 MEQ/L Anion Gap 9 MEQ/L Blood Urea Nitrogen 10 MG/DL Creatinine 1.14 MG/DL Estimat Glomerular Filtration 67 ML/MIN Rate Random Glucose 94 MG/DL Calcium Level 9.1 MG/DL Triglycerides Level 117 MG/DL Cholesterol Level 213 MG/DL LDL Cholesterol 136 MG/DL HDL Cholesterol 53.8 MG/DL Cholesterol/HDL Ratio 3.95 RATIO Vitals/IOs Vital Signs Date Time Temp Pulse Resp B/P Pulse Ox O2 Delivery O2 Flow Rate FiO2 02/17/17 04:44 97.9 95 16 144/94 98 140/83 02/16/17 06:00 Room Air 02/16/17 00:11 2 Assessment & Plan Problem List: (1) Psychosis ICD Code: F29 Assessment & Plan I agree with the first opinion to continue petition. Criteria include suicidal ideation. Increase Cogentin to twice a day Justification for Cont. Inpt. Patient will decompensate in a less restrictive setting Problem Qualifiers (1) Psychosis: Qualified Code: F29 - Psychosis, unspecified psychosis type Camron Nice DO February 17, 2017 13:55
[2017-02-17] MEDS: BENZTROPINE MESYLATE 1 MG TAB PO SCH ×2 (16:18→21:19)
[2017-02-17 16:35] VITALS: BP 134/74; PULSE 98; RESP 18; TEMP 97.8; O2SAT 99
[2017-02-17] MEDS: MONTELUKAST SODIUM 10 MG TAB PO SCH (21:19)
[2017-02-18 05:51] VITALS: BP 130/75; PULSE 79; RESP 18; TEMP 97.6; O2SAT 96
[2017-02-18] MEDS: FLUoxetine HCL 20 MG CAP PO SCH (08:27)
[2017-02-18] MEDS: PANTOPRAZOLE SOD 40 MG DELAYED RELEASE TAB PO SCH (08:28)
[2017-02-18] MEDS: THIAMINE HCL 100 MG TAB PO SCH (08:28)
[2017-02-18] MEDS: QUEtiapine FUMARATE 25 MG TAB PO SCH (08:28)
[2017-02-18] MEDS: BENZTROPINE MESYLATE 1 MG TAB PO SCH ×2 (08:28→21:33)
[2017-02-18] MEDS: PRIMIDONE 50 MG TAB PO SCH ×3 (08:28→18:00)
[2017-02-18] MEDS: BACLOFEN 10 MG TAB PO SCH (08:28)
[2017-02-18] MEDS: CYANOCOBALAMIN 1,000 MCG TAB PO SCH (08:28)
[2017-02-18] MEDS: GABAPENTIN 400 MG CAP PO SCH ×3 (08:28→18:00)
[2017-02-18] MEDS: lamoTRIgine 25 MG TAB PO SCH ×2 (08:28→21:33)
--- NOTE | 2017-02-18 14:55 | HHI.PYPN ---
Subjective Remarks Patient was seen and case discussed with nursing. His fidgeting, possible akathisia has improved the slightly higher dose of Cogentin. Patient describes an increasing depressed mood with fleeting suicidal thoughts. His no intent or plan of hurting himself in the hospital. Some paranoia concerning his medications. Behaving well on the unit Objective Alert: Yes [place]: Person, Place, Date Mood: Calm Affect: Restricted Memory Intact: Comment (grossly intact) Hallucinations: Auditory (nonspecific) Delusions: No Delusion Type: Other Suicidal: Ideation (fleeting with no intent or plan, seen engaging with others) Homicidal: Ideation (denies) Insight/Judgment Poor Vitals/IOs Vital Signs Date Time Temp Pulse Resp B/P Pulse Ox O2 Delivery O2 Flow Rate FiO2 02/18/17 05:51 97.6 79 18 130/75 96 02/16/17 06:00 Room Air 02/16/17 00:11 2 Assessment & Plan Problem List: (1) Psychosis ICD Code: F29 Assessment & Plan Continue current treatment plan Justification for Cont. Inpt. Patient will decompensate in a less restrictive setting Problem Qualifiers (1) Psychosis: Qualified Code: F29 - Psychosis, unspecified psychosis type Camron Nice DO February 18, 2017 14:55
[2017-02-18 20:25] VITALS: BP 135/78; PULSE 93; RESP 18; TEMP 98.6; O2SAT 96
[2017-02-18] MEDS: MONTELUKAST SODIUM 10 MG TAB PO SCH (21:33)
[2017-02-19] MEDS: LORazepam 1 MG TAB PO PRN (04:06)
[2017-02-19 05:29] VITALS: BP 154/80; PULSE 107; RESP 18; TEMP 98; O2SAT 95
[2017-02-19] MEDS: GABAPENTIN 400 MG CAP PO SCH ×3 (08:35→18:00)
[2017-02-19] MEDS: BENZTROPINE MESYLATE 1 MG TAB PO SCH ×2 (08:35→21:16)
[2017-02-19] MEDS: THIAMINE HCL 100 MG TAB PO SCH (08:35)
[2017-02-19] MEDS: BACLOFEN 10 MG TAB PO SCH (08:35)
[2017-02-19] MEDS: lamoTRIgine 25 MG TAB PO SCH ×2 (08:35→21:16)
[2017-02-19] MEDS: CYANOCOBALAMIN 1,000 MCG TAB PO SCH (08:35)
[2017-02-19] MEDS: PANTOPRAZOLE SOD 40 MG DELAYED RELEASE TAB PO SCH (08:35)
[2017-02-19] MEDS: FLUoxetine HCL 20 MG CAP PO SCH (08:35)
[2017-02-19] MEDS: PRIMIDONE 50 MG TAB PO SCH ×2 (08:35→12:23)
--- NOTE | 2017-02-19 08:41 | HHI.PYPN ---
Subjective Remarks Patient was seen today for psychiatric evaluation, he was found in the day room , having breakfast, calm and cooperative, he says that today he feels a little bit better, but still feeling down, very concerned about multiple situations in his life, he brings again the issue of his son disappeared since October 2016. Patient seems to be internally stimulated, staring often, becoming guarded, paranoid edges his medications. However redirectable and sensitive to the medical recommendations. He denies suicidal ideation, but reports having suicidal thoughts. He contracted for safety in the unit. During the week and patient was mostly isolated in the unit, interacting very poorly with staff and peers. But compliant with medications. He doesn't report side effects. During this evaluation no restlessness or EPS signs present. Review of Systems Other No somatic complaints Objective Alert: Yes [place]: Person, Place, Date Mood: Calm Affect: Flat Memory Intact: Comment (grossly intact) Hallucinations: Other (patient denies auditory and visual hallucinations) Delusions: No Delusion Type: Paranoid, Other Suicidal: Ideation (suicidal thoughts, no plan) Homicidal: Ideation (denies) Insight/Judgment Poor Vitals/IOs Vital Signs Date Time Temp Pulse Resp B/P Pulse Ox O2 Delivery O2 Flow Rate FiO2 02/19/17 05:29 98.0 107 18 154/80 95 02/16/17 06:00 Room Air 02/16/17 00:11 2 Assessment & Plan Problem List: (1) Psychosis Assessment & Plan: Patient continues to report depressive symptoms, he also seems to be internally stimulated, guarded and paranoid. We will increase Seroquel to 50 mg twice a day. No EPS seems to be present. Extensive psycho education provided. ICD Code: F29 Assessment & Plan Estimated LOS: days Justification for Cont. Inpt. Patient continues to be acutely psychotic, very depressed and needs to continue psychiatric inpatient level of care for stabilization and safety. Problem Qualifiers (1) Psychosis: Qualified Code: F29 - Psychosis, unspecified psychosis type Angel Luis Cleaning MD February 19, 2017 08:41
[2017-02-19] MEDS: QUEtiapine FUMARATE 25 MG TAB PO SCH (09:00)
--- NOTE | 2017-02-19 11:59 | HHI.PR ---
Subjective Remarks Follow-up on patient with a history of TBI, seizure disorders, hydrocephalus, anxiety, depression and schizophrenia. Patient seen and examined today. Patient denies any acute medical complaints. Denies any fever/chills, nausea/ vomiting, dizziness, headache, shortness of breath, chest pain or abdominal pain. Does report intermittent numbness and tingling in the calves of both lower legs which is controlled with gabapentin. Objective Vitals Vital Signs Date Time Temp Pulse Resp B/P Pulse Ox O2 Delivery O2 Flow Rate FiO2 02/19/17 05:29 98.0 107 18 154/80 95 02/18/17 20:25 98.6 93 18 135/78 96 Result Diagram: 02/15/17 1845 02/17/17 0725 Objective Remarks GENERAL: This is a well-nourished, well-developed patient, in no apparent distress. Awake and alert. SKIN: No rashes, ecchymoses or lesions. Cool and dry. HEAD: Atraumatic. Normocephalic. No temporal or scalp tenderness. EYES: Extraocular motions intact. No scleral icterus. No injection or drainage. CARDIOVASCULAR: Regular rate and rhythm without murmurs, gallops, or rubs. RESPIRATORY: Clear to auscultation. Breath sounds equal bilaterally. No wheezes , rales, or rhonchi. GASTROINTESTINAL: Abdomen soft, non-tender, nondistended. No hepato-splenomegaly , or palpable masses. No guarding. MUSCULOSKELETAL: Extremities without clubbing, cyanosis, or edema. No joint tenderness, effusion, or edema noted. No calf tenderness. NEUROLOGICAL: Awake and alert. Able to move all extremities. Strength 5 out of 5 bilateral upper and lower extremities. No focal neurologic findings appreciated. Normal speech. Medications and IVs Current Medications Medications (Trade) Dose Ordered Sig/Kang Route Start Time Stop Time Status Last Admin (Ativan) 1 mg Q6H PRN PO 02/16/17 09:15 02/19/17 04:06 (Ativan Inj) 1 mg Q6H PRN IM 02/16/17 09:15 (Tylenol) 650 mg Q4H PRN PO 02/16/17 09:15 (Milk Of Magnesia Liq) 30 ml DAILY PRN PO 02/16/17 09:15 (Mag-Al Plus Susp Liq) 30 ml Q6H PRN PO 02/16/17 09:15 (Lioresal) 10 mg DAILY PO 02/16/17 13:15 02/19/17 08:35 (Vitamin B12) 500 mcg DAILY PO 02/16/17 13:45 02/19/17 08:35 (PROzac) 20 mg DAILY PO 02/16/17 13:15 02/19/17 08:35 (Neurontin) 400 mg TID PO 02/16/17 18:00 02/19/17 08:35 (Singulair) 10 mg HS PO 02/16/17 21:00 02/18/17 21:33 (Mysoline) 50 mg TID PO 02/16/17 18:00 02/19/17 08:35 (Vitamin B1) 100 mg DAILY PO 02/16/17 13:15 02/19/17 08:35 (LaMICtal) 25 mg BID PO 02/16/17 14:00 02/19/17 08:35 (Protonix) 40 mg DAILY PO 02/16/17 14:00 02/19/17 08:35 (Pill Splitter) 1 ea UNSCH PRN OTHER 02/16/17 14:00 (Cogentin) 1 mg BID PO 02/17/17 14:00 02/19/17 08:35 (SEROquel) 50 mg DAILY PO 02/19/17 09:00 02/19/17 09:00 A/P Assessment and Plan 51 yo male with schizophrenia, history of hydrocephalus, TBI, seizure disorders , GERD, anxiety and depression admitted to psychiatric unit for issues with racing thoughts, increasing agitation and suicidal ideation. Patients reports patient has been struggling with these symptoms for weeks that became much worse today after he heard about the suicide of famous TV celebrity. Hospitalist services were consulted for medical management. 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 Marvin, patient and nursing staff Debbi Castillo February 19, 2017 11:59
[2017-02-19] MEDS: MONTELUKAST SODIUM 10 MG TAB PO SCH (21:16)
[2017-02-19 21:37] VITALS: BP 141/73; PULSE 75; RESP 18; TEMP 98.1; O2SAT 98
[2017-02-20 05:33] VITALS: BP 142/85; PULSE 112; RESP 20; TEMP 97.8; O2SAT 94
[2017-02-20] MEDS: PRIMIDONE 50 MG TAB PO SCH ×4 (09:00→17:11)
[2017-02-20] MEDS: GABAPENTIN 400 MG CAP PO SCH ×3 (09:00→17:11)
[2017-02-20] MEDS: THIAMINE HCL 100 MG TAB PO SCH (09:00)
[2017-02-20] MEDS: CYANOCOBALAMIN 1,000 MCG TAB PO SCH (09:05)
[2017-02-20] MEDS: BENZTROPINE MESYLATE 1 MG TAB PO SCH ×2 (09:05→20:19)
[2017-02-20] MEDS: QUEtiapine FUMARATE 25 MG TAB PO SCH (09:05)
[2017-02-20] MEDS: BACLOFEN 10 MG TAB PO SCH (09:05)
[2017-02-20] MEDS: PANTOPRAZOLE SOD 40 MG DELAYED RELEASE TAB PO SCH (09:06)
[2017-02-20] MEDS: FLUoxetine HCL 20 MG CAP PO SCH (09:06)
[2017-02-20] MEDS: lamoTRIgine 25 MG TAB PO SCH ×2 (09:06→20:19)
--- NOTE | 2017-02-20 14:14 | HHI.PYPN ---
Subjective Remarks Patient was seen today for psychiatric reevaluation, patient reports sleeping very poorly, to continue with depressed mood, he has been thinking persistently "about the rats in my house", he endorses suicidal ideation, but he doesn't have any plan. Patient is also restless, oddly related, seems to be internally preoccupied, oriented 3, compliant with medications, no significant side effects. Review of Systems Psychiatric: COMPLAINS OF: Depression, Suicidal Ideation (no plan) Objective Alert: Yes [place]: Person, Place, Date Mood: Calm, Depressed Affect: Flat Memory Intact: Comment (grossly intact) Hallucinations: Other (patient denies auditory and visual hallucinations) Delusions: No Delusion Type: Paranoid, Other Suicidal: Ideation (suicidal thoughts, no plan) Homicidal: Ideation (denies) Insight/Judgment Poor Vitals/IOs Vital Signs Date Time Temp Pulse Resp B/P Pulse Ox O2 Delivery O2 Flow Rate FiO2 02/20/17 05:33 97.8 112 20 142/85 94 Assessment & Plan Problem List: (1) Psychosis Assessment & Plan: Will increase Seroquel to 100 mg at bedtime for psychosis, also would increase Prozac to 40 mg daily for depression. ICD Code: F29 Assessment & Plan Estimated LOS: days Justification for Cont. Inpt. Patient is to continue psychiatric hospitalization for stabilization and safety. Problem Qualifiers (1) Psychosis: Qualified Code: F29 - Psychosis, unspecified psychosis type Angel Luis Cleaning MD February 20, 2017 14:14
[2017-02-20 17:57] VITALS: BP 135/84; PULSE 107; RESP 18; TEMP 98.1; O2SAT 94
[2017-02-20] MEDS: ACETAMINOPHEN 325 MG TAB PO PRN (20:19)
[2017-02-20] MEDS: QUEtiapine FUMARATE 100 MG TAB PO SCH (20:19)
[2017-02-20] MEDS: MONTELUKAST SODIUM 10 MG TAB PO SCH (20:19)
[2017-02-21 05:02] VITALS: BP 116/54; PULSE 66; RESP 18; TEMP 97.9; O2SAT 98
[2017-02-21] MEDS: LORazepam 1 MG TAB PO PRN (06:41)
[2017-02-21] MEDS ORDERED: FLUoxetine HCL 20 MG CAP PO SCH (09:00)
[2017-02-21] MEDS: BENZTROPINE MESYLATE 1 MG TAB PO SCH ×2 (09:31→21:08)
[2017-02-21] MEDS: PANTOPRAZOLE SOD 40 MG DELAYED RELEASE TAB PO SCH (09:31)
[2017-02-21] MEDS: CYANOCOBALAMIN 1,000 MCG TAB PO SCH (09:31)
[2017-02-21] MEDS: lamoTRIgine 25 MG TAB PO SCH ×2 (09:31→21:08)
[2017-02-21] MEDS: THIAMINE HCL 100 MG TAB PO SCH (09:31)
[2017-02-21] MEDS: GABAPENTIN 400 MG CAP PO SCH ×3 (09:32→18:16)
[2017-02-21] MEDS: PRIMIDONE 50 MG TAB PO SCH ×3 (09:32→18:16)
[2017-02-21] MEDS: BACLOFEN 10 MG TAB PO SCH (09:32)
--- NOTE | 2017-02-21 13:21 | HHI.PYPN ---
Subjective Remarks On psychiatric evaluation today patient is found in the recreational area of the unit, he reports to feel a little bit better, but still depressed, very preoccupied about his son who disappear in October "and we haven't known anything about him since then"patient also reports difficulty sleeping at night due to racing thoughts, "a lot of thoughts in my mind, especially thinking about the rats in my house, I cannot stop thinking about". On the psychiatric evaluation patient is restless, he has fine tremors in both hands, he seems to be internally preoccupied, reports suicidal thoughts, but denies suicidal ideation, denies this ideation, denies visual and auditory hallucinations. Patient is oriented 3, compliant with medications, no agitation or aggressive behavior reported Review of Systems Other No somatic complaints Objective Alert: Yes [place]: Person, Place, Date Mood: Depressed Affect: Flat Memory Intact: Comment (grossly intact) Hallucinations: Other (patient seems to be internally stimulated) Delusions: No Delusion Type: Paranoid, Other Suicidal: Ideation (suicidal thoughts, no plan) Homicidal: Ideation (denies) Insight/Judgment Poor Vitals/IOs Vital Signs Date Time Temp Pulse Resp B/P Pulse Ox O2 Delivery O2 Flow Rate FiO2 02/21/17 05:02 97.9 66 18 116/54 98 Intake and Output 02/20/17 02/20/17 02/21/17 08:00 16:00 00:00 Intake Total 360 ml Balance 360 ml Assessment & Plan Problem List: (1) Psychosis Assessment & Plan: Patient continues to show restlessness, blocking thought, intrusive thoughts of rats invading his house, racing thoughts, suicidal thoughts, but no plan. Would raise Prozac to 60 mg to help with can of obsessive thoughts, we'll continue Seroquel same dose. ICD Code: F29 Assessment & Plan Estimated LOS: days Justification for Cont. Inpt. Patient continues to show persistent internal stimulation, intrusive thoughts, suicidal thoughts and needs to continue inpatient level of care. Problem Qualifiers (1) Psychosis: Qualified Code: F29 - Psychosis, unspecified psychosis type Angel Luis Cleaning MD February 21, 2017 13:21
--- NOTE | 2017-02-21 17:56 | HHI.PR ---
Subjective Remarks Patient denies cp/sob denies seizures vital signs stable Objective Vitals Vital Signs Date Time Temp Pulse Resp B/P Pulse Ox O2 Delivery O2 Flow Rate FiO2 02/21/17 05:02 97.9 66 18 116/54 98 02/20/17 17:57 98.1 107 18 135/84 94 I/O 02/20/17 02/20/17 02/20/17 02/21/17 02/21/17 02/21/17 07:00 15:00 23:00 07:00 15:00 23:00 Intake Total 360 ml Balance 360 ml Intake Oral 360 ml Result Diagram: 02/17/17 0725 Objective Remarks GENERAL: This is a well-nourished, well-developed patient, in no apparent distress. Awake and alert. SKIN: No rashes, ecchymoses or lesions. Cool and dry. HEAD: Atraumatic. Normocephalic. No temporal or scalp tenderness. EYES: Extraocular motions intact. No scleral icterus. No injection or drainage. CARDIOVASCULAR: Regular rate and rhythm without murmurs, gallops, or rubs. RESPIRATORY: Clear to auscultation. Breath sounds equal bilaterally. No wheezes , rales, or rhonchi. GASTROINTESTINAL: Abdomen soft, non-tender, nondistended. No hepato-splenomegaly , or palpable masses. No guarding. MUSCULOSKELETAL: Extremities without clubbing, cyanosis, or edema. No joint tenderness, effusion, or edema noted. No calf tenderness. NEUROLOGICAL: Awake and alert. Able to move all extremities. Strength 5 out of 5 bilateral upper and lower extremities. No focal neurologic findings appreciated. Normal speech. Medications and IVs Current Medications Medications (Trade) Dose Ordered Sig/Kang Route Start Time Stop Time Status Last Admin (Ativan) 1 mg Q6H PRN PO 02/16/17 09:15 02/21/17 06:41 (Ativan Inj) 1 mg Q6H PRN IM 02/16/17 09:15 (Tylenol) 650 mg Q4H PRN PO 02/16/17 09:15 02/20/17 20:19 (Milk Of Magnesia Liq) 30 ml DAILY PRN PO 02/16/17 09:15 (Mag-Al Plus Susp Liq) 30 ml Q6H PRN PO 02/16/17 09:15 (Lioresal) 10 mg DAILY PO 02/16/17 13:15 02/21/17 09:32 (Vitamin B12) 500 mcg DAILY PO 02/16/17 13:45 02/21/17 09:31 (Neurontin) 400 mg TID PO 02/16/17 18:00 02/21/17 14:46 (Singulair) 10 mg HS PO 02/16/17 21:00 02/20/17 20:19 (Mysoline) 50 mg TID PO 02/16/17 18:00 02/21/17 14:46 (Vitamin B1) 100 mg DAILY PO 02/16/17 13:15 02/21/17 09:31 (LaMICtal) 25 mg BID PO 02/16/17 14:00 02/21/17 09:31 (Protonix) 40 mg DAILY PO 02/16/17 14:00 02/21/17 09:31 (Pill Splitter) 1 ea UNSCH PRN OTHER 02/16/17 14:00 (Cogentin) 1 mg BID PO 02/17/17 14:00 02/21/17 09:31 (SEROquel) 100 mg HS PO 02/20/17 21:00 02/20/17 20:19 (PROzac) 60 mg DAILY PO 02/22/17 09:00 Urinary Catheter: No Vascular Central Line Catheter: No A/P Assessment and Plan 51 yo male with schizophrenia, history of hydrocephalus, TBI, seizure disorders , GERD, anxiety and depression admitted to psychiatric unit for issues with racing thoughts, increasing agitation and suicidal ideation. Patients reports patient has been struggling with these symptoms for weeks that became much worse today after he heard about the suicide of famous TV celebrity. Hospitalist services were consulted for medical management. Schizophrenia in patient with depression and anxiety with recent suicidal ideation - Management per psychiatric team History of TBI/hydrocephalus/seizure disorder - Continue with antiseizure medications - Lamotrigine level pending but no seizures Dizziness with postural changes - orthostatic BP measurements obtained and no significant postural changes noted - Asymptomatic at present Dyslipidemia - does not meet recommendation for statin therapy per ASCVD electrical estimator - Recommend dietary modification - Follow up with primary care physician as outpatient for continued evaluation Neuropathy - intermittent - improved with Gabapentin - discussed possible EMG as outpatient GERD - Continue with PPI DVT prophylaxis - encourage ambulation Will sign off. Please reconsult if needed. Marvin Tesfaye,Angelito MD February 21, 2017 17:56
[2017-02-21 18:05] VITALS: BP 153/81; PULSE 101; RESP 18; TEMP 97.8; O2SAT 98
[2017-02-21] MEDS: ACETAMINOPHEN 325 MG TAB PO PRN (20:35)
[2017-02-21] MEDS: QUEtiapine FUMARATE 100 MG TAB PO SCH (21:07)
[2017-02-21] MEDS: MONTELUKAST SODIUM 10 MG TAB PO SCH (21:08)
[2017-02-22 05:41] VITALS: BP 116/74; PULSE 80; RESP 16; TEMP 97.8; O2SAT 98
[2017-02-22] MEDS: BENZTROPINE MESYLATE 1 MG TAB PO SCH ×2 (08:35→21:13)
[2017-02-22] MEDS: PRIMIDONE 50 MG TAB PO SCH ×3 (08:35→17:34)
[2017-02-22] MEDS: GABAPENTIN 400 MG CAP PO SCH ×3 (08:36→17:34)
[2017-02-22] MEDS: FLUoxetine HCL 20 MG CAP PO SCH (08:36)
[2017-02-22] MEDS: lamoTRIgine 25 MG TAB PO SCH ×2 (08:37→21:13)
[2017-02-22] MEDS: CYANOCOBALAMIN 1,000 MCG TAB PO SCH (08:37)
[2017-02-22] MEDS: PANTOPRAZOLE SOD 40 MG DELAYED RELEASE TAB PO SCH (08:37)
[2017-02-22] MEDS: THIAMINE HCL 100 MG TAB PO SCH (08:38)
[2017-02-22] MEDS: BACLOFEN 10 MG TAB PO SCH (09:00)
--- NOTE | 2017-02-22 12:53 | HHI.PYPN ---
Subjective Remarks Patient was seen today for psychiatric evaluation, he was found the recreational area of the psychiatric unit, calm, cooperative and pleasant. Still a little bit restless, with frequent verbal tics, but he reports improved mood, improved sleep at night, he has been sleeping okay, interacting with group appropriately, he does report frequent intrusive thoughts and preoccupations, he denies suicidal or homicidal ideation, he denies visual and auditory hallucination. Patient is oriented 3, no attention deficit, no gross cognitive impairment observed. Patient is compliant with his medication, no side effects reported. Review of Systems Other No somatic complaints Objective Alert: Yes [place]: Person, Place, Date Mood: Calm Affect: Flat Memory Intact: Comment (grossly intact) Hallucinations: Other (patient seems to be internally stimulated) Delusions: No Delusion Type: Paranoid, Other Suicidal: Ideation (suicidal thoughts, no plan) Homicidal: Ideation (denies) Insight/Judgment Improve Vitals/IOs Vital Signs Date Time Temp Pulse Resp B/P Pulse Ox O2 Delivery O2 Flow Rate FiO2 02/22/17 05:41 97.8 80 16 116/74 98 Assessment & Plan Problem List: (1) Psychosis ICD Code: F29 (2) OCD (obsessive compulsive disorder) Assessment & Plan: Patient continues to report intrusive thoughts, he also continues to be restless, agitated, but no aggressive behavior. We'll continue current psychotropics. Tomorrow we will conduct a family meeting for discharge planning. ICD Code: F42.9 Assessment & Plan Estimated LOS: days Justification for Cont. Inpt. Patient has an increased chance to decompensate at a lower level of care Problem Qualifiers (1) Psychosis: Qualified Code: F29 - Psychosis, unspecified psychosis type Angel Luis Cleaning MD February 22, 2017 12:53
[2017-02-22 18:00] VITALS: BP 143/91; PULSE 80; RESP 18; TEMP 97.4; O2SAT 95
[2017-02-22] MEDS: ACETAMINOPHEN 325 MG TAB PO PRN (18:05)
[2017-02-22] MEDS: QUEtiapine FUMARATE 100 MG TAB PO SCH (21:13)
[2017-02-22] MEDS: MONTELUKAST SODIUM 10 MG TAB PO SCH (21:13)
[2017-02-23 06:17] VITALS: BP 113/69; PULSE 76; RESP 18; TEMP 98.1; O2SAT 97
[2017-02-23] MEDS: BACLOFEN 10 MG TAB PO SCH (08:16)
[2017-02-23] MEDS: THIAMINE HCL 100 MG TAB PO SCH (08:16)
[2017-02-23] MEDS: PRIMIDONE 50 MG TAB PO SCH ×3 (08:16→17:34)
[2017-02-23] MEDS: PANTOPRAZOLE SOD 40 MG DELAYED RELEASE TAB PO SCH (08:16)
[2017-02-23] MEDS: BENZTROPINE MESYLATE 1 MG TAB PO SCH ×2 (08:16→20:45)
[2017-02-23] MEDS: lamoTRIgine 25 MG TAB PO SCH ×2 (08:16→20:46)
[2017-02-23] MEDS: GABAPENTIN 400 MG CAP PO SCH ×3 (08:16→17:34)
[2017-02-23] MEDS: FLUoxetine HCL 20 MG CAP PO SCH (08:17)
[2017-02-23] MEDS: CYANOCOBALAMIN 1,000 MCG TAB PO SCH (08:17)
--- NOTE | 2017-02-23 14:19 | HHI.PYPN ---
Subjective Remarks Patient is seen today for psychiatric evaluation along with social media community manager Nona. His Lo was also present. Patient reports improvement in his sleep, his level of energy and appetite, he says that his depression is now 6/10 , which represents basically a 50% improvement from the day he came to the hospital when he was 9. However, patient continues to have persisting intrusive thoughts about rats in his house, and about his loss son. Patient also continues to have persistent uncontrollable impulses of scratching and pulling out his hair, he has a visible bold area in the left side of his head. He has frequent suicidal thoughts, but he denies suicidal intentions or plan. He denies visual and auditory hallucinations, he denies paranoia, patient is oriented 3, no gross cognitive impairment observed. No agitation or aggressive behavior reported by nurses. His seems to be very concerned about recent increase of his medications. She was explained the purpose of increase in Prozac to 60 mg and also increase in Seroquel 100 mg. She expressed understanding, poor also concerned about the safety of her and about his continuous gross and from good to poor reality testing. Review of Systems Neurologic: COMPLAINS OF: Tremor Objective Alert: Yes [place]: Person, Place, Date Mood: Calm Affect: Flat Memory Intact: Comment (grossly intact) Hallucinations: Other (patient seems to be internally stimulated) Delusions: No Delusion Type: Paranoid, Other Suicidal: Ideation (suicidal thoughts, no plan) Homicidal: Ideation (denies) Insight/Judgment Improved Vitals/IOs Vital Signs Date Time Temp Pulse Resp B/P Pulse Ox O2 Delivery O2 Flow Rate FiO2 02/23/17 06:17 98.1 76 18 113/69 97 Intake and Output 02/22/17 02/22/17 02/23/17 08:00 16:00 00:00 Intake Total 360 ml Balance 360 ml Assessment & Plan Problem List: (1) Psychosis ICD Code: F29 (2) OCD (obsessive compulsive disorder) Assessment & Plan: We'll continue current doses of psychotropics to control anxiety and depression. Extensive support psychotherapy and behavioral techniques shared with the patient. 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 Inpt. Patient is to continue current level of care for stabilization and safety. Problem Qualifiers (1) Psychosis: Qualified Code: F29 - Psychosis, unspecified psychosis type Angel Luis Cleaning MD February 23, 2017 14:19
[2017-02-23 17:13] VITALS: BP 121/76; PULSE 88; RESP 18; TEMP 97.5; O2SAT 96
[2017-02-23] MEDS: MONTELUKAST SODIUM 10 MG TAB PO SCH (20:46)
[2017-02-23] MEDS: QUEtiapine FUMARATE 100 MG TAB PO SCH (20:46)
[2017-02-24 06:13] VITALS: BP 122/64; PULSE 90; RESP 17; TEMP 98.2; O2SAT 96
[2017-02-24] MEDS: FLUoxetine HCL 20 MG CAP PO SCH (09:05)
[2017-02-24] MEDS: GABAPENTIN 400 MG CAP PO SCH ×3 (09:05→18:53)
[2017-02-24] MEDS: THIAMINE HCL 100 MG TAB PO SCH (09:05)
[2017-02-24] MEDS: PANTOPRAZOLE SOD 40 MG DELAYED RELEASE TAB PO SCH (09:05)
[2017-02-24] MEDS: PRIMIDONE 50 MG TAB PO SCH ×3 (09:05→18:53)
[2017-02-24] MEDS: BACLOFEN 10 MG TAB PO SCH (09:06)
[2017-02-24] MEDS: lamoTRIgine 25 MG TAB PO SCH ×2 (09:06→20:57)
[2017-02-24] MEDS: CYANOCOBALAMIN 1,000 MCG TAB PO SCH (09:06)
[2017-02-24] MEDS: BENZTROPINE MESYLATE 1 MG TAB PO SCH ×2 (09:06→20:57)
[2017-02-24] MEDS: ACETAMINOPHEN 325 MG TAB PO PRN ×2 (13:22→20:58)
--- NOTE | 2017-02-24 17:15 | HHI.PYPN ---
Subjective Remarks Pt seen and discussed with staff. He reports that he is sleeping better but anxiety and depression remain high. He denies SI/HI ("not at the moment') He denies AVH but does appear on observation at times to be internally preoccupied. 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 Estimated LOS: days Justification for Cont. Inpt. impairments in reality construction Problem Qualifiers (1) Psychosis: Qualified Code: F29 - Psychosis, unspecified psychosis type Pau العلي MD February 24, 2017 17:15
[2017-02-24 18:00] VITALS: BP 127/91; PULSE 95; RESP 19; TEMP 93.9; O2SAT 97
[2017-02-24] MEDS: MONTELUKAST SODIUM 10 MG TAB PO SCH (20:56)
[2017-02-24] MEDS: QUEtiapine FUMARATE 100 MG TAB PO SCH (20:57)
[2017-02-25 05:38] VITALS: BP 116/62; PULSE 75; RESP 16; TEMP 97; O2SAT 94
[2017-02-25] MEDS: THIAMINE HCL 100 MG TAB PO SCH (09:32)
[2017-02-25] MEDS: lamoTRIgine 25 MG TAB PO SCH ×2 (09:32→20:24)
[2017-02-25] MEDS: CYANOCOBALAMIN 1,000 MCG TAB PO SCH (09:32)
[2017-02-25] MEDS: PRIMIDONE 50 MG TAB PO SCH ×3 (09:32→18:22)
[2017-02-25] MEDS: FLUoxetine HCL 20 MG CAP PO SCH (09:33)
[2017-02-25] MEDS: BACLOFEN 10 MG TAB PO SCH (09:33)
[2017-02-25] MEDS: BENZTROPINE MESYLATE 1 MG TAB PO SCH ×2 (09:33→20:22)
[2017-02-25] MEDS: PANTOPRAZOLE SOD 40 MG DELAYED RELEASE TAB PO SCH (09:33)
[2017-02-25] MEDS: LORazepam 1 MG TAB PO PRN (09:33)
[2017-02-25] MEDS: GABAPENTIN 400 MG CAP PO SCH ×3 (09:33→18:22)
--- NOTE | 2017-02-25 16:10 | HHI.PYPN ---
Subjective Remarks Pt seen and discussed with staff. He c/o of AH hallucinations and has been pacing hallways. He c/o of anxiety. No medication side effects. Objective Alert: Yes [place]: Person, Place, Date Mood: Anxious Affect: Flat Memory Intact: Comment (grossly intact) Hallucinations: Other (patient seems to be internally stimulated) Delusions: No Delusion Type: Paranoid, Other Suicidal: Ideation (suicidal thoughts, no plan) Homicidal: Ideation (denies) Insight/Judgment poor Vitals/IOs Vital Signs Date Time Temp Pulse Resp B/P Pulse Ox O2 Delivery O2 Flow Rate FiO2 02/25/17 05:38 97.0 75 16 116/62 94 Intake and Output 02/24/17 02/24/17 02/25/17 08:00 16:00 00:00 Intake Total 600 ml 480 ml Balance 600 ml 480 ml Assessment & Plan Problem List: (1) Psychosis ICD Code: F29 (2) OCD (obsessive compulsive disorder) ICD Code: F42.9 (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 Estimated LOS: days Justification for Cont. Inpt. impairments in reality construction Problem Qualifiers (1) Psychosis: Qualified Code: F29 - Psychosis, unspecified psychosis type Pau العلي MD February 25, 2017 16:10
[2017-02-25] MEDS: MONTELUKAST SODIUM 10 MG TAB PO SCH (20:22)
[2017-02-25] MEDS: QUEtiapine FUMARATE 100 MG TAB PO SCH (20:23)
[2017-02-25] MEDS: ACETAMINOPHEN 325 MG TAB PO PRN (20:25)
[2017-02-26 05:55] VITALS: BP 106/60; PULSE 69; RESP 16; TEMP 98; O2SAT 98
[2017-02-26] MEDS: THIAMINE HCL 100 MG TAB PO SCH (08:47)
[2017-02-26] MEDS: lamoTRIgine 25 MG TAB PO SCH ×2 (08:47→21:07)
[2017-02-26] MEDS: FLUoxetine HCL 20 MG CAP PO SCH (08:47)
[2017-02-26] MEDS: PRIMIDONE 50 MG TAB PO SCH ×3 (08:47→17:23)
[2017-02-26] MEDS: BENZTROPINE MESYLATE 1 MG TAB PO SCH ×2 (08:47→21:06)
[2017-02-26] MEDS: PANTOPRAZOLE SOD 40 MG DELAYED RELEASE TAB PO SCH (08:47)
[2017-02-26] MEDS: CYANOCOBALAMIN 1,000 MCG TAB PO SCH (08:47)
[2017-02-26] MEDS: GABAPENTIN 400 MG CAP PO SCH ×3 (08:47→17:23)
[2017-02-26] MEDS: BACLOFEN 10 MG TAB PO SCH (08:48)
--- NOTE | 2017-02-26 12:33 | HHI.PYPN ---
Subjective Remarks Patient seen in all with nurse Siri, counselor Nona, chart reviewed. Patient remains anxious somewhat agitated obsessive type behaviors scratching at her scalp, scratching his shoulders, twitching shouldes.some focusing on the increased dose of Seroquel. no significant side effects. He complains of some persistent auditory hallucinations for now continue medication no change Review of Systems Except as stated in HPI: all other systems reviewed are Neg Objective Alert: Yes [place]: Person, Place, Date Mood: Anxious Affect: Flat Memory Intact: Comment (grossly intact) Hallucinations: Other (patient seems to be internally stimulated) Delusions: No Delusion Type: Paranoid, Other Suicidal: Ideation (suicidal thoughts, no plan) Homicidal: Ideation (denies) Insight/Judgment Poor Vitals/IOs Vital Signs Date Time Temp Pulse Resp B/P Pulse Ox O2 Delivery O2 Flow Rate FiO2 02/26/17 05:55 98.0 69 16 106/60 98 Assessment & Plan Problem List: (1) Psychosis ICD Code: F29 (2) OCD (obsessive compulsive disorder) ICD Code: F42.9 (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 With obsessive overtones and also poking cat hair and scalp. Has just had increase in his cervical continue to monitor no change medication today Justification for Cont. Inpt. At this time patient decompensate if placed in a lower level of care Discharge Planning To be determined Problem Qualifiers (1) Psychosis: Qualified Code: F29 - Psychosis, unspecified psychosis type John Paulino MD February 26, 2017 12:33
[2017-02-26 17:01] VITALS: BP 131/88; PULSE 100; RESP 18; TEMP 98.1
[2017-02-26] MEDS: QUEtiapine FUMARATE 100 MG TAB PO SCH (21:00)
[2017-02-26] MEDS: MONTELUKAST SODIUM 10 MG TAB PO SCH (21:06)
[2017-02-27] MEDS: FLUoxetine HCL 20 MG CAP PO SCH (08:21)
[2017-02-27] MEDS: CYANOCOBALAMIN 1,000 MCG TAB PO SCH (08:21)
[2017-02-27] MEDS: BACLOFEN 10 MG TAB PO SCH (08:21)
[2017-02-27] MEDS: BENZTROPINE MESYLATE 1 MG TAB PO SCH (08:21)
[2017-02-27] MEDS: PANTOPRAZOLE SOD 40 MG DELAYED RELEASE TAB PO SCH (08:21)
[2017-02-27] MEDS: lamoTRIgine 25 MG TAB PO SCH (08:21)
[2017-02-27] MEDS: THIAMINE HCL 100 MG TAB PO SCH (08:22)
[2017-02-27] MEDS: GABAPENTIN 400 MG CAP PO SCH ×2 (08:22→13:07)
[2017-02-27] MEDS: PRIMIDONE 50 MG TAB PO SCH ×2 (08:22→13:07)
[2017-02-27] MEDS ORDERED: BACL10TA PO (12:51)
[2017-02-27] MEDS ORDERED: VITA10002 PO (12:51)
[2017-02-27] MEDS ORDERED: Benztropine PO (12:51)
[2017-02-27] MEDS ORDERED: QUET1TAB8 PO (12:51)
[2017-02-27] MEDS ORDERED: NEUR400C PO (12:51)
[2017-02-27] MEDS ORDERED: LAMO25 PO (12:54)
[2017-02-27] MEDS ORDERED: PROZ20CA11 PO (12:54)
[2017-02-27] MEDS ORDERED: PRIM50 PO (12:54)
[2017-02-27] MEDS ORDERED: PROZ40CA PO (12:54)
--- NOTE | 2017-02-27 12:59 | HHI.DS ---
Psychiatry Discharge Summary Inpatient Psychiatric care?: Yes Advance Directive: No Reason Not Provided: refused Mental Health AdvanceDirective: No Health Care Proxy: Yes Admission Admission Date February 16, 2017 at 08:33 Admission Diagnosis: (1) Psychosis ICD Code: F29 Brief History The patient is a 51-year-old man, domicile with his in [place], he has 2 kids, his unemployed, on SSI, with psychiatric history of schizophrenia, previous hospitalizations, no suicidal attempts, he is on Seroquel 50 mg, Prozac 20 mg, gabapentin 400 mg 3 times a day, he has medical history of TBI and seizures, who came to the emergency room with history of racing thoughts, increasing agitation and suicidal ideation. His is here with him and says that he's been struggling with these symptoms for past few weeks. He went to the [facility] where they tried to adjust his medications. He also went to [facility] were also his medication was tried to be adjusted. Currently it has come to the point where nothing is helping and today he heard about the related to a suicide of a famous celebrity on TV and since then he has not been able to let go of appendicitis and the idea of killing himself. He has been unable to sit still and constantly fidgeting and dealing with racing thoughts of killing himself. His was unable to take care of him like this and decided to bring him to the emergency room. Patient claims to be getting suicidal ideations and formulating a plan. He seems to be responding to internal stimuli as well. Patient says that his main stressor is that he has a son who left his house since October and he doesn't know anything about his son since then. He also says that another stressor is that his house is full of rats. Patient seems to be very distressed, at times perplexed, guarded and internally stimulated. He doesn't have any specific suicidal plan," but I could not stop thinking about". He is oriented 3, no attention deficit, no gross cognitive impairment observed. Patient denies the use of illicit drugs and alcohol. Tobacco Use In Past 30 Days: No Tobacco Past 30 Days Alcohol Use: Never Hospital Course Patient was admitted due to psychosis and suicidal ideation. At the beginning of hospitalization patient was delusional thinking that his house was full of rats, also having suicidal ideation because his son has been disappeared since October. He immediately had an initial complete a catheter in psychosocial assessment. He was initiated in psychotropics. Individual and group psychotherapy. And safety measures were taken. During the hospitalization patient also showed significant symptomatology about OCD, with intrusive permanent thoughts of having rats in his house, which was through in the past, and also compulsive behavior of pulling out his hair. Patient also was restless and tremulous. Psychotropics were titrated as needed, patient did not show any significant side effect. Patient improved of his depression and suicidal thoughts, both his obsessive compulsive behavior did not show significant improvement. During this hospitalization family meeting with his was done. Once the patient was more stable moodwise, and patient was able to adhere with medication and she'll commitment with outpatient psychiatric care , he was finally discharged back home with his appear. Results Blood Pressure 131 / 88 Vital Signs Date Time Temp Pulse Resp B/P Pulse Ox O2 Delivery O2 Flow Rate FiO2 02/26/17 17:01 98.1 100 18 131/88 02/26/17 05:55 98 Last reviewed Summary of Procedures No procedure done Pending results at discharge: No Medications # of Antipsychotic meds at D/C: 1 Approp Antipsych med options 1 - Minimum of three failed multiple trials of monotherapy. 2 - Documented plan to taper to monotherapy due to previous use of multiple meds OR cross-taper in progress at D/C. 3 - Documentation of augmentation of Clozapine. 4 - Justification other than those listed in allowable values 1-3, document here : Discharge Discharge Date: Mar 30, 2017 Discharge Diagnosis: (1) OCD (obsessive compulsive disorder) Diagnosis: Secondary ICD Code: F42.9 (2) Psychosis Diagnosis: Principal ICD Code: F29 Mental Status Exam at [facility], good hygiene, with self-induced alopecia in his head, restless, with compulsive behavior of scratching his head, but calm and cooperative. He reports good mood, affect is anxious. Thought process is logical, coherent and relevant. His his speech is reticent. Thought content devoid of suicidal ideation, homicidal ideation, visual and auditory hallucinations. Obsessive thoughts about rats and about his son present. Insight, judgment, impulse control are fair. Cognition is intact. Pt Condition on Discharge: Stable Discharge Disposition: Discharge Home Discharge Instructions Diet Instructions: As Tolerated, No Restrictions, Heart Healthy Diet Activities you can perform: Weight Bearing as Uri Scheduled Appointment: Tylor Marchman Act Appointment Date: February 28, 2017 Appointment Time: 830 Discharge Time > 30 minutes Discharge/Advance Care Plan Health Problems: (1) Psychosis (2) OCD (obsessive compulsive disorder) (3) Trichotillomania Goals to promote your health * To prevent worsening of your condition and complications * To maintain your health at the optimal level Directions to meet your goals Take your medications as prescribed Follow your dietary instruction Follow activity as directed Keep your appointments as scheduled Take your immunizations and boosters as scheduled If your symptoms worsen call your PCP, if no PCP go to Urgent Care Center or Emergency Room For 23/04 questions related to your inpatient stay or results of tests pending at discharge, please contact Dr. Angel Luis Cleaning at Smoking is Dangerous to Your Health. Avoid second hand smoking Problem Qualifiers (1) Psychosis: Qualified Code: F29 - Psychosis, unspecified psychosis type Angel Luis Cleaning MD February 27, 2017 12:58
== END 2017-02-27 17:00 | disposition home or self-care (01) | DRG 885 ==
LOC: PHED 17:37 → NEDA 02-16 08:33 → H260 02-16 10:40
PROVIDERS: ADMIT Psychiatry & Neurology Psychiatry; ATTEND Psychiatry & Neurology Psychiatry
DX: F20.9 Schizophrenia, unspecified (principal); R45.851 Suicidal ideations; G62.9 Polyneuropathy, unspecified; F22 Delusional disorders; F32.9 Major depressive disorder, single episode, unspecified; F42.9 Obsessive-compulsive disorder, unspecified; E78.5 Hyperlipidemia, unspecified; G40.909 Epilepsy, unspecified, not intractable, without status epilepticus; H91.90 Unspecified hearing loss, unspecified ear; K21.9 Gastro-esophageal reflux disease without esophagitis; Z87.820 Personal history of traumatic brain injury; Z98.2 Presence of cerebrospinal fluid drainage device
CPT/HCPCS: 80048; 80053; 80061; 80175; 80307; 83036; 85025; 93005; 96360; 96372; 99281; J1200; J1630; J2060; J7030

== ENCOUNTER 2017-04-27 19:56 | Inpatient (IN) | payer MEDICARE, MEDICAID ==
[~2017-04-27] VITALS: Ht 170.2 cm; Wt 78.4 kg
[~2017-04-27 19:56] MED LIST changes: +ALEN1TAB48 PO; +BACL10TA PO; +BENZ1TAB PO; +Benztropine PO; -DEPA500T3 PO; +FLUO20CA4 PO; -GABA100C4 PO; -IBUP600 PO; +LAMO25 PO; -METH500T3 PO; +MONT10TA4 PO; +NEUR400C PO; +OMEP40CA2 PO; +PRIM50 PO; +PROZ20CA11 PO; +PROZ40CA PO; +QUET1TAB7 PO; +QUET1TAB8 PO; -RISP0.5T20 PO; +THIA100T PO; +VITA10002 PO
[2017-04-27 20:00] VITALS: BP 127/87; PULSE 95; RESP 15; TEMP 98.3; O2SAT 96
--- NOTE | 2017-04-27 20:45 | PD ---
Physical Exam Date Seen by Provider: Apr 27, 2017 Time Seen by Provider: 20:43 Narrative 51 yo male here for evaluation of worsening depression, hallucinations. History of psych. Was admitted recently and had meds changes. For the past few weeks he has been acting very bizharre and confused. No other medical issues. No injuries. Compliant with meds. Vitals are stable in triage. Awaiting bed placement. Data Data Last Documented VS Vital Signs Date Time Temp Pulse Resp B/P Pulse Ox O2 Delivery O2 Flow Rate FiO2 04/27/17 20:00 98.3 95 15 127/87 96 Room Air [facility] Medical Record Reviewed: Yes Supervised Visit with ARAMIS: No Russ Wills Apr 27, 2017 20:45
--- NOTE | 2017-04-27 23:20 | PD ---
HPI Chief Complaint: Psychiatric Symptoms Time Seen by Provider: 23:14 Travel History International Travel<30 days: No Contact w/Intl Traveler<30days: No Traveled to known affect area: No History of Present Illness HPI Patient is a 51-year-old male with a history traumatic brain injury and schizophrenia presents to emergency department for evaluation of behavioral abnormality with his and daughter. Patient's gives most history is the patient appears to have significant mental handicap at this time. Apparently in 2011 he had a traumatic brain injury and had a shunt placed. Over the past 6 months however he's had declining mental status to the point where he is wondering difficult to control often have brain anger outburst and even suicidal threats. She has just been released from inpatient psychiatric facility here also evaluated a psychiatric facility in [place] and medications continue to be adjusted but the patient continues to have behavioral issues. His states that it is difficult to control and keep them at home in a safe environment unless somebody is with them all the time. When asked the states that the patient had been offered home health care before but they didn't know how to pay for it. is very concerned for the patient's well being and daughter asked if he could be evaluated by a psychiatric hospital. Patient is pleasantly oblivious these issues. He has no physical complaints and denies any chest pain shortness of breath abdominal pain nausea vomiting or diarrhea. PFSH Past Medical History Anxiety: Yes Depression: Yes Cancer: No Cardiovascular Problems: Yes Chest Pain: Yes Diminished Hearing: Yes ([place]) Endocrine: No Gastrointestinal Disorders: Yes (Gallbadder removed) Genitourinary: No Musculoskeletal: Yes Neurologic: Yes (HYDROCEPHALUS) Psychiatric: Yes Reproductive: No Respiratory: No Schizophrenia: Yes Seizures: Yes Tetanus Vaccination: < 5 Years Influenza Vaccination: No Past Surgical History Cholecystectomy: Yes Genitourinary Surgery: Yes (HYDROCELE) Neurologic Surgery: Yes (STUDENT DEAN SHUNT AND REVISION/MULTIPLE SUBDURAL/ANOTHER REVISION) Other Surgery: Yes Social History Alcohol Use: No Tobacco Use: No Substance Use: No Allergies-Medications (Allergen,Severity, Reaction): Coded Allergies: Chlorhexidine (Unverified Allergy, Severe, Rash, 02/15/17) Reported Meds & Prescriptions Reported Meds & Active Scripts Active Prozac (Fluoxetine HCl) 20 Mg Cap 20 Mg PO DAILY Lamictal (Lamotrigine) 25 Mg Tab 25 Mg PO BID Neurontin (Gabapentin) 400 Mg Cap 400 Mg PO TID Baclofen 10 Mg Tab 10 Mg PO DAILY Reported Vitamin B-1 (Thiamine HCl) 100 Mg Tab 100 Mg PO DAILY Clonazepam 1 Mg Tab 1 Mg PO HS Clonazepam 0.5 Mg Tab 0.5 Mg PO AC BREAKFAST Quetiapine (Quetiapine Fumarate) 200 Mg Tab 200 Mg PO BID Omeprazole 40 Mg Cap 40 Mg PO DAILY Montelukast (Montelukast Sodium) 10 Mg Tab 10 Mg PO HS Alendronate (Alendronate Sodium) 70 Mg Tab 70 Mg PO Q7D Review of Systems Except as stated in HPI: all other systems reviewed are Neg Physical Exam Narrative GENERAL: Well-developed well-nourished no obvious distress SKIN: Focused skin assessment warm/dry. HEAD: Atraumatic. Normocephalic. EYES: Pupils equal and round. No scleral icterus. No injection or drainage. ENT: No nasal bleeding or discharge. Mucous membranes pink and moist. NECK: Trachea midline. No JVD. CARDIOVASCULAR: Regular rate and rhythm. No murmur appreciated. RESPIRATORY: No accessory muscle use. Clear to auscultation. Breath sounds equal bilaterally. GASTROINTESTINAL: Abdomen soft, non-tender, nondistended. Hepatic and splenic margins not palpable. MUSCULOSKELETAL: No obvious deformities. No clubbing. No cyanosis. No edema. NEUROLOGICAL: Awake and alert. No obvious cranial nerve deficits. Motor grossly within normal limits. Normal speech. PSYCHIATRIC: Mood is fine, affect is flat, poor insight and poor judgment. Denies suicidal or homicidal ideation. Perhaps has been mental capacity of fifth-grader. Data Data Last Documented VS Vital Signs Date Time Temp Pulse Resp B/P Pulse Ox O2 Delivery O2 Flow Rate FiO2 04/27/17 23:32 16 04/27/17 23:23 98.3 64 151/89 99 Room Air Orders Complete Blood Count With Diff (04/27/17 23:41) Comprehensive Metabolic Panel (04/27/17 23:41) Psych Screen (04/27/17 23:41) Drug Screen, Random Urine (04/27/17 23:41) Alcohol (Ethanol) (04/27/17 23:41) Ct Brain W/O Iv Contrast(Rout) (04/27/17 ) Labs Laboratory Tests Test 04/27/17 23:45 White Blood Count 5.4 TH/MM3 Red Blood Count 4.54 MIL/MM3 Hemoglobin 14.3 GM/DL Hematocrit 41.2 % Mean Corpuscular Volume 90.6 FL Mean Corpuscular Hemoglobin 31.5 PG Mean Corpuscular Hemoglobin 34.7 % Concent Red Cell Distribution Width 13.6 % Platelet Count 304 TH/MM3 Mean Platelet Volume 8.8 FL Neutrophils (%) (Auto) 57.5 % Lymphocytes (%) (Auto) 25.6 % Monocytes (%) (Auto) 11.7 % Eosinophils (%) (Auto) 4.6 % Basophils (%) (Auto) 0.6 % Neutrophils # (Auto) 3.1 TH/MM3 Lymphocytes # (Auto) 1.4 TH/MM3 Monocytes # (Auto) 0.6 TH/MM3 Eosinophils # (Auto) 0.2 TH/MM3 Basophils # (Auto) 0.0 TH/MM3 CBC Comment DIFF FINAL Differential Comment Sodium Level 138 MEQ/L Potassium Level 4.1 MEQ/L Chloride Level 105 MEQ/L Carbon Dioxide Level 26.3 MEQ/L Anion Gap 7 MEQ/L Blood Urea Nitrogen 9 MG/DL Creatinine 1.19 MG/DL Estimat Glomerular Filtration 64 ML/MIN Rate Random Glucose 85 MG/DL Calcium Level 9.7 MG/DL Total Bilirubin 0.4 MG/DL Aspartate Amino Transf 14 U/L (AST/SGOT) Alanine Aminotransferase 22 U/L (ALT/SGPT) Alkaline Phosphatase 142 U/L Total Protein 8.3 GM/DL Albumin 4.2 GM/DL Urine Opiates Screen NEG Urine Barbiturates Screen NEG Urine Amphetamines Screen NEG Urine Benzodiazepines Screen NEG Urine Cocaine Screen NEG Urine Cannabinoids Screen NEG Ethyl Alcohol Level LESS THAN 3 MG/DL MDM Medical Decision Making Medical Screen Exam Complete: Yes Emergency Medical Condition: Yes Differential Diagnosis Mental disability, behavioral abnormality, schizophrenia, traumatic brain injury , worsening organic brain disease. Narrative Course Patient roomed emergency department basic labs sent by psychiatric protocol which are unremarkable patient has not had a CAT scan of his head and this institution while being worked up for these issues: Last [address] 04/27/17 0000 Signed Impressions: Service Date/Time: Friday, April 28, 2017 01:21 - CONCLUSION: Previous right-sided ventriculostomy catheter. The rest of the intracranial exam is normal except for mild prominence of the ventricles. Jean Paul Nelson MD After repeat discussion with the and daughter they request psychiatric evaluation. I think the patient is gravely disabled at this time given his mental incapacity and tendency to wander into unsafe situations. Place him under [place] act at this time. He is medically cleared for psychiatric evaluation and disposition. Diagnosis Primary Impression: Psychosis Additional Impressions: OCD (obsessive compulsive disorder) Trichotillomania Condition: Stable Matias Saucedo MD Apr 27, 2017 23:20
[2017-04-27 23:23] VITALS: BP 151/89; PULSE 64; RESP 16; TEMP 98.3; O2SAT 99
[2017-04-27] MEDS ORDERED: CLON1TAB PO (23:31)
[2017-04-27] MEDS ORDERED: CLON0.5T PO (23:31)
[2017-04-27] MEDS ORDERED: QUET1TAB9 PO (23:31)
[2017-04-27] MEDS ORDERED: VITA100T54 PO (23:31)
[2017-04-28 00:03] LABS: AUTOMATED NEUTROPHIL # 3.1 TH/MM3 (1.8-7.7); BASOPHIL % 0.6 % (0.0-2.0); EOSINOPHIL # 0.2 TH/MM3 (0-0.4); EOSINOPHIL % 4.6 % (0.0-4.0); HEMATOCRIT 41.2 % (39.0-51.0); HEMO FLAGS DIFF FINAL; LYMPH % 25.6 % (9.0-44.0); LYMPHOCYTE # 1.4 TH/MM3 (1.0-4.8); MEAN CELL VOLUME 90.6 FL (80.0-100.0); MEAN CORPUSCULAR HEMOGLOBIN 31.5 PG (27.0-34.0); MEAN CORPUSCULAR HGB CONC 34.7 % (32.0-36.0); MONO % 11.7 % (0.0-8.0); NEUT % 57.5 % (16.0-70.0); PLATELET COUNT 304 TH/MM3 (150-450); RED BLOOD COUNT 4.54 MIL/MM3 (4.50-5.90); RED CELL DISTRIBUTION WIDTH 13.6 % (11.6-17.2); WHITE BLOOD COUNT 5.4 TH/MM3 (4.0-11.0)
[2017-04-28 00:10] LABS: AMPHETAMINE, URINE NEG (NEG); BARBITURATES, URINE NEG (NEG); COCAINE, URINE NEG (NEG)
[2017-04-28 00:18] LABS: ALT (GPT) 22 U/L (12-78); ANION GAP 7 MEQ/L (5-15); AST (GOT) 14 U/L (15-37); BICARBONATE 26.3 MEQ/L (21.0-32.0); BLOOD UREA NITROGEN 9 MG/DL (7-18); CHLORIDE 105 MEQ/L (98-107); GLOMERULAR FILTRATION RATE 64 ML/MIN (>89); POTASSIUM 4.1 MEQ/L (3.5-5.1); SODIUM (NA) 138 MEQ/L (136-145)
[2017-04-28 00:20] LABS: ALKALINE PHOSPHATASE 142 U/L (45-117); TOTAL BILIRUBIN ADULT 0.4 MG/DL (0.2-1.0)
--- NOTE | 2017-04-28 01:37 | RADRPT ---
EXAM DATE/TIME: 04/28/2017 01:21 [facility] COMPARISON: No previous studies available for comparison. INDICATIONS : Altered mental status. RADIATION DOSE: 35.00 CTDIvol (mGy) MEDICAL HISTORY : Seizures. Hydrocephalus. SURGICAL HISTORY : Shunt. ENCOUNTER: Initial ACUITY: 1 day PAIN SCALE: Non-responsive LOCATION: cranial TECHNIQUE: Multiple contiguous axial images were obtained of the head. Using automated exposure control and adj ustment of the mA and/or kV according to patient size, radiation dose was kept as low as reasonably a chievable to obtain optimal diagnostic quality images. DICOM format image data is available electro nically for review and comparison. FINDINGS: CEREBRUM: There's been a right-sided posterior temporal ventriculostomy catheter with its tip extending across line extending into the anterior aspect of the lateral horn. The ventricles are prominent for age. No evidence of midline shift, mass lesion, hemorrhage or acute infarction. No extra-axial fluid marlen ections are seen. POSTERIOR FOSSA: The cerebellum and brainstem are intact. The 4th ventricle is midline. The cerebellopontine angle i s unremarkable. EXTRACRANIAL: The visualized portion of the orbits is intact. SKULL: Multiple cranial humberto holes are noted. No evidence of skull fracture. CONCLUSION: Previous right-sided ventriculostomy catheter. The rest of the intracranial exam is normal except for mild prominence of the ventricles. Jean Paul Nelson MD on April 28, 2017 at 1:34 Board Certified Radiologist. This report was verified electronically.
[2017-04-28 08:50] VITALS: BP 110/75; PULSE 71; RESP 16; O2SAT 95
[2017-04-28] MEDS ORDERED: BENZTROPINE MESYLATE 1 MG TAB PO PRN (11:15)
[2017-04-28] MEDS ORDERED: BENZTROPINE MESYLATE 2 MG/2 ML VIAL IM PRN (11:15)
[2017-04-28] MEDS ORDERED: LORazepam 2 MG/ML VIAL IM PRN (11:15)
[2017-04-28] MEDS ORDERED: HALOPERIDOL LACTATE 5 MG/ML AMP IM PRN (11:15)
[2017-04-28] MEDS ORDERED: ALUMINUM/MAGNESIUM/SIMETH 30 ML CUP PO PRN (11:15)
[2017-04-28] MEDS ORDERED: MAGNESIUM HYDROXIDE SUSP 30 ML CUP PO PRN (11:15)
[2017-04-28] MEDS: lamoTRIgine 25 MG TAB PO SCH ×2 (11:15→22:20)
--- NOTE | 2017-04-28 12:08 | HHI.HP ---
Provisional Diagnosis Admission Date Apr 28, 2017 at 11:13 Certification of Person's Competence To Provide Express and Informed Consent I have personally examined Behzad Cintron , a person being served at [facility] on, Apr 28, 2017 12:08. Express and informed consent means consent voluntarily given in writing, by a competent person, after sufficient explanation and disclosure of the subject matter involved to enable the person to make a knowing and willful decision without any element of force, fraud, deceit, duress, or other form of constraint or coercion. This person is 18 years of age or older, is not now known to be incompetent to consent to treatment with a guardian advocate, and does not have a health care surrogate or proxy currently making medical treatment decisions. I have found this person to be one of the following: [] Competent to provide express and informed consent, as defined above, for voluntary admission to this facility and is competent to provide express and informed consent for treatment. He/she has the consistent capacity to make well reasoned, willful, and knowing decisions concerning his or her medical or mental health treatment. The person fully and consistently understands the purpose of the admission for examination/placement and is fully capable of personally exercising all rights assured [place] [] Incompetent to provide express and informed consent to voluntary admission, and this is incompetent to provide express and informed consent to treatment. The person must be transferred to involuntary status and a petition for a guardian advocate filed with the Circuit Court. [] Refusing to provide express and informed consent to voluntary admission but is competent to provide express and informed consent for treatment. The person must be discharged or transferred to involuntary status. Form shall be completed within 24 hours of a person's arrival at the receiving facility and filed in the clinical record of each person: 1. Admitted on a voluntary basis 2. Permitted to provide express and informed consent to his/her own treatment 3. Allowed to transfer from involuntary to voluntary status 4. Prior to permitting a person to consent to his or her own treatment after having been previously found incompetent to consent to treatment. Past Family Social History Coded Allergies: Chlorhexidine (Unverified Allergy, Severe, Rash, 04/28/17) Active Scripts Fluoxetine (Prozac)20 Mg Cap20 Mg PO DAILY #30 CAP Ref 0 Prov:Angel Luis Cleaning MD 02/27/17 Lamotrigine (Lamictal)25 Mg Tab25 Mg PO BID #60 TAB Prov:Angel Luis Cleaning MD 02/27/17 Gabapentin (Neurontin)400 Mg [id number] Mg PO TID #90 CAP Prov:Angel Luis Cleaning MD 02/27/17 Baclofen 10 Mg Tab10 Mg PO DAILY #30 TAB Prov:Angel Luis Cleaning MD 02/27/17 Reported Medications Thiamine (Vitamin B-1)100 Mg [id number] Mg PO DAILY Ref 0 04/27/17 Clonazepam 1 Mg Tab1 Mg PO HS #60 TAB Ref 0 04/27/17 Clonazepam 0.5 Mg Tab0.5 Mg PO AC BREAKFAST #60 TAB Ref 0 04/27/17 Quetiapine 200 Mg [id number] Mg PO BID #60 TAB Ref 0 04/27/17 Omeprazole 40 Mg Cap40 Mg PO DAILY #30 CAP Ref 0 02/15/17 Montelukast 10 Mg Tab10 Mg PO HS #30 TAB Ref 0 02/15/17 Alendronate 70 Mg Tab70 Mg PO Q7D #4 TAB Ref 0 02/15/17 Discontinued Reported Medications Quetiapine 25 Mg Tab25 Mg PO DAILY #30 TAB Ref 0 02/15/17 Discontinued Scripts Fluoxetine (Prozac)40 Mg Cap40 Mg PO DAILY #30 CAP Ref 0 Prov:Angel Luis Cleaning MD 02/27/17 Primidone (Mysoline)50 Mg Tab50 Mg PO TID #30 TAB Prov:Angel Luis Cleaning MD 02/27/17 Cyanocobalamin (Vitamin B-12)1,000 Mcg [id number] Mcg PO DAILY #60 TAB Prov:Angel Luis Cleaning MD 02/27/17 Quetiapine 100 Mg [id number] Mg PO HS 30 Days Prov:Angel Luis Cleaning MD 02/27/17 [Benztropine Mesylate] (Cogentin)1 MG TAB No Conflict Check1 Mg PO BID #60 TAB Prov:Angel Luis Cleaning MD 02/27/17 Current Medications Medications (Trade) Dose Ordered Sig/Kang Route Start Time Stop Time Status Last Admin (Ativan) 0.5 mg Q6H PRN PO 04/28/17 11:15 (Ativan Inj) 0.5 mg Q6H PRN IM 04/28/17 11:15 (Benadryl) 50 mg HS PRN PO 04/28/17 11:15 (Tylenol) 650 mg Q4H PRN PO 04/28/17 11:15 (Milk Of Magnesia Liq) 30 ml DAILY PRN PO 04/28/17 11:15 (Mag-Al Plus Susp Liq) 30 ml Q6H PRN PO 04/28/17 11:15 (Cogentin) 1 mg Q12H PRN PO 04/28/17 11:15 (Cogentin Inj) 1 mg Q12H PRN IM 04/28/17 11:15 (Haldol) 2 mg Q6H PRN PO 04/28/17 11:15 (Haldol Inj) 2 mg Q6H PRN IM 04/28/17 11:15 (LaMICtal) 75 mg Q12HR PO 04/28/17 11:15 (Neurontin) 400 mg TID PO 04/28/17 13:00 (Lioresal) 10 mg Q8HR PO 04/28/17 14:00 (Singulair) 10 mg DAILY PO 04/29/17 09:00 (Protonix) 20 mg DAILY PO 04/29/17 09:00 (Vitamin B1) 100 mg DAILY PO 04/29/17 09:00 Physical Exam Vital Signs Vital Signs Date Time Temp Pulse Resp B/P Pulse Ox O2 Delivery O2 Flow Rate FiO2 04/28/17 08:50 71 16 110/75 95 Room Air 04/27/17 23:23 98.3 Mental Status Examination Previous Suicide Attempts: No Previous Homicide Attempts: No Assessment & Plan Assessment & Plan Estimated LOS: days Rich Givens MD Apr 28, 2017 12:08
[2017-04-28] MEDS: GABAPENTIN 400 MG CAP PO SCH ×2 (12:53→17:14)
--- NOTE | 2017-04-28 12:57 | MH ---
cc: RICH DIA DATE OF ADMISSION: 04/28/2017 ADMISSION DIAGNOSES 1. Other psychotic disorder, F28. LEGAL STATUS: The patient is presently not capacitated to consent for admission or for medications. Involuntary status. I have completed first opinion. Consulting for second opinion. Request health care surrogate and guardian advocate. HISTORY OF PRESENT ILLNESS Mr. Cintron is a 51-year-old male with history of traumatic brain injury and associated psychiatric disturbance, who presented voluntarily for psychiatric evaluation. He was placed under a [facility] by the ED provider. Reviewing the electronic medical record, I note that the patient was admitted in January of this year under Dr. Cleaning. The patient seen and examined. Chart reviewed. Case discussed with nursing staff. On my examination this morning, the patient presents as somewhat anxious. He says that he has been having trouble in the evenings with believing that his son is in prison. He comes to find out the son has not been jailed in the morning. He is reassured but then believes the same thing the next night. He says that he is hearing a voice in his head saying "yes, yes, no no." He says that he has been feeling somewhat depressed for the last several years and anxious especially within the last four to five minutes for months. He says that he feels that he has to keep busy all the time. He also struggles with easy anger and notes that he has recently been breaking objects in the home. He denies any suicidal or homicidal ideation. Remainder of the psychiatric ROS is negative. With the patient's permission, I have obtained collateral from his over the phone. She feels that his psychiatric symptoms worsened after he was placed on the Seroquel and Prozac. She says that since he has been on these medications, he has been feeling increasingly anxious and has been wandering around the house looking for objects, although it is not clear what exactly he is looking for. He also has been hearing voices. She relates that when they went to on vacation in [place] he was knocking on people's doors believing that they had some special information for him. She says that he has done the best on Haldol monotherapy although he did experience some EPS with this. PAST PSYCHIATRIC HISTORY The patient has psychiatric diagnoses as noted above. He is not yet under the care of a psychiatrist. He denies any history of other psychiatric admissions or suicide attempts. FAMILY HISTORY The patient is unsure of his family psychiatric history. CHEMICAL DEPENDENCY HISTORY: The patient denies any abuse of drugs or alcohol. SOCIAL HISTORY The patient reports that he has lives with his 27 years. He has two children. He has 1 year graduate school. 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 He denies any or legal history. Denies any access to guns or firearms. PAST MEDICAL HISTORY Includes a history of a fall in 2011 with subsequent traumatic brain injury. See electronic medical record. REVIEW OF SYSTEMS No reported headache, vision or hearing changes, chest pain, shortness of breath, bowel or bladder issues. No other physical complaints. PHYSICAL EXAMINATION VITAL SIGNS: T98.3, P77, R20, BP122/80, SpO2 98%. Physical examination completed by the ED provider. On my examination today, the patient appears to be in no acute physical distress. No motor abnormalities noted. LABORATORY Reviewed. CBC unremarkable, CMP GFR 64, AlkPhos 142, Tox and EtOH negative. MENTAL STATUS EXAM The patient is casually dressed. He is fairly well-groomed. He is awake, alert and oriented to person and hospital at least. No motor abnormalities noted, although I do note that the patient clears his throat repeatedly and rubs his head repeatedly. Speech is within normal limits for rate, tone and volume. Language and fund of knowledge average to slightly reduced. Focusing concentration, somewhat scattered. Memory seems slightly impaired on clinical exam. Mood is depressed and affect blunted. Thought process circumstantial. No loosening of associations. No delusions currently but see above. Endorses auditory phenomena as listed above. No visual hallucinations. Denies suicidal or homicidal ideation. Unclear that the patient is reliable to contract for safety. Insight and judgment seem poor. ASSESSMENT/PLAN This is a 51-year-old male with psychiatric history as detailed above who is presently held in the emergency department under [facility]. The patient reports delusional beliefs of his son being in prison and also auditory phenomena of hearing voices in his head and his provides collateral for significant worsening of symptoms after recent medication adjustment. Given his current symptoms and the reported agitated behavior at home, I think it is reasonable to admit the patient to the inpatient psychiatric unit for safety, observation and stabilization. ASSESSMENT AND PLAN: Admit inpatient. Involuntary status. I have completed first opinion and requested second opinion. Request health care surrogate and guardian advocate. I will consult to the hospitalist for medical management. I will hold the patient's scheduled psychotropic, namely the Prozac, Seroquel, and Klonopin as the patient's reports that symptoms were worse when these medications were added and titrated. I will provide the patient with Ativan as needed for out of as needed for anxiety and Haldol as needed for severe agitation along with Cogentin for side effects management. Plan will be to add scheduled Haldol if symptoms do not remit with holding psychotropics. I will continue is the Lamictal for seizure, gabapentin for neuropathic pain and other medical medications as ordered. Seizure prec. We will do vitals every shift. Counselor to see. Disposition planning. Estimated length of stay: 5 to 7 days. Rich Prasad /12:15 PM /12:34 PM CARISA
[2017-04-28 12:58] VITALS: BP 122/80; PULSE 77; RESP 20; O2SAT 98
[2017-04-28 13:50] VITALS: BP 111/70; PULSE 67; RESP 17; TEMP 98.2; O2SAT 98
[2017-04-28] MEDS: BACLOFEN 10 MG TAB PO SCH ×2 (14:00→22:20)
[2017-04-28] MEDS: LORazepam 1 MG TAB PO PRN ×2 (14:23→22:20)
--- NOTE | 2017-04-28 17:27 | MB ---
cc: LIZY LANDIS MD DATE OF CONSULTATION 04/28/17 DATE OF 1965 REASON FOR CONSULTATION Medical management. TRAVEL HISTORY In the last 30 days none. HISTORY OF PRESENT ILLNESS This is a 51-year-old white male with history of a traumatic brain injury and schizophrenia. He was brought to the emergency room for a behavioral abnormality per his and daughter according to the record. The patient is a poor historian. Most of this information is being gathered by the record. He gives very simple information but does not always respond to the questions. According to the record the patient has a significant mental handicap at this time. He had a shunt replaced for his brain injury in 2011 and he has been in declining health over the past 6 months. The patient has been brought in for further evaluation. PAST MEDICAL HISTORY Anxiety, depression, cardiovascular disease, [id number], gallbladder disease. Hydrocephalic, traumatic brain injury, schizophrenia. PAST SURGICAL HISTORY Hydrocele, cholecystectomy, [employer] shunt and revision of multiple subdural. ALLERGIES CHLORHEXIDINE. MEDICATIONS 1. Vitamin B1. 2. ____pam. 3. Omperazole. 4. Quetiapine. 5. Montelucast. 6. Alendronate. SOCIAL HISTORY No listed tobacco, alcohol or illicit drugs. The patient is , currently lives at home with his . REVIEW OF SYSTEMS The review of systems is limited as the patient was rather distant and did not want to answer a lot of questions. PHYSICAL EXAMINATION VITAL SIGNS: Temperature is 98.2. Pulse 67, respirations 17, blood pressure 111/70, has been as high as 151/89. O2 sat 98. GENERAL: Well-nourished white male, looks to be his stated age, sitting in the day room. He is rocking back and forth, mildly anxious. HEENT: Atraumatic, normocephalic. KHADIJAH at 3. Mucous membranes are moist. NECK: Neck is supple. CARDIOVASCULAR: S1-S2, rhythm is regular. LUNGS: Lungs are essentially clear anteriorly and posteriorly. ABDOMEN: Round, soft, nontender, nondistended. MUSCULOSKELETAL: Moving all extremities with purpose. NEUROLOGICALLY: He is awake. Answers only simple questions. Does have a rocking tick sensation back and forth with probable anxiety. SKIN: The skin is pink, warm and dry. DIAGNOSTIC DATA WBC count 5.4, hemoglobin 14.3, hematocrit 41.2, monocyte percentage count 11.7, eosinophils 4.6. Chemistry, sodium 138, potassium 4.1, BUN is 9, creatinine 1.19, GFR 64, AST 14, alkaline phosphatase 142, total protein 8.3. Toxicology shows negative for any outside drugs. Alcohol level is less than 3. IMAGING STUDIES Imaging studies shows a head CT to have a previous right-sided ventriculostomy catheter. The rest of exam is normal except for prominence of the ventricles. ASSESSMENT/PLAN History of depression, psychosis, obsessive-compulsive disorder, noted atypical chest pain in the emergency room but patient is denying any chest pain at this time. History of traumatic brain injury and schizophrenia. Our plan is to monitor his medical management. Any psych medications or issues will be managed by the psych team. He is admitted to inpatient status. He can be out of bed ad mathieu. Diet is regular. Meds have been reconciled. Lipid profile has been ordered. If the patient complains of any other chest pain we will reevaluate but currently he is denying any problems. We appreciate this consult. We will follow his medical management. Dictated by ANNITA Sauceda MD KENROY Robertson/VENITA /4:32 PM /5:03 PM
[2017-04-28] MEDS: HALOPERIDOL 2 MG TAB PO PRN (22:22)
[2017-04-29 06:07] VITALS: BP 142/87; PULSE 120; RESP 19; TEMP 97.4; O2SAT 97
[2017-04-29] MEDS: BACLOFEN 10 MG TAB PO SCH ×3 (06:21→21:32)
[2017-04-29] MEDS ORDERED: NICOTINE 21 MG/24 HR PATCH T-DERMAL SCH (09:00)
[2017-04-29] MEDS ORDERED: REMOVE OLD PATCH T-DERMAL SCH (09:00)
[2017-04-29] MEDS: THIAMINE HCL 100 MG TAB PO SCH (09:09)
[2017-04-29] MEDS: GABAPENTIN 400 MG CAP PO SCH ×3 (09:09→18:28)
[2017-04-29] MEDS: lamoTRIgine 25 MG TAB PO SCH ×2 (09:09→21:31)
[2017-04-29] MEDS: MONTELUKAST SODIUM 10 MG TAB PO SCH (09:09)
[2017-04-29] MEDS: PANTOPRAZOLE SOD 20 MG DELAYED RELEASE TAB PO SCH (09:09)
[2017-04-29 10:08] LABS: ANION GAP 11 MEQ/L (5-15); AST (GOT) 20 U/L (15-37); BICARBONATE 21.4 MEQ/L (21.0-32.0); BLOOD UREA NITROGEN 12 MG/DL (7-18); CHLORIDE 104 MEQ/L (98-107); GLOMERULAR FILTRATION RATE 57 ML/MIN (>89); POTASSIUM 3.8 MEQ/L (3.5-5.1); SODIUM (NA) 136 MEQ/L (136-145)
[2017-04-29 10:10] LABS: ALT (GPT) 22 U/L (12-78)
[2017-04-29 10:12] LABS: ALKALINE PHOSPHATASE 141 U/L (45-117); HDL CHOLESTEROL 66.3 MG/DL (40.0-60.0); LDL CHOLESTEROL 102 MG/DL (0-99); TOTAL BILIRUBIN ADULT 0.6 MG/DL (0.2-1.0)
[2017-04-29] MEDS: HALOPERIDOL 2 MG TAB PO PRN (11:24)
[2017-04-29] MEDS: LORazepam 1 MG TAB PO PRN (11:24)
--- NOTE | 2017-04-29 14:58 | PD.PSY.CON ---
Provisional Diagnosis Admission Date Apr 28, 2017 at 11:13 [place] I. Other Psychotic Disorder, F28 [place] III. Hx of TBI History of Present Illness Service Psychiatry Consult Requested By Psychiatry Reason for Consult 2nd Opinion Primary Care Physician John Daniels DO HPI Pt seen and discussed [facility] staff. Chart reviewed. He is a 58 YOWM with a hx of TBI and resulting psychiatric illness who was admitted under a BA due to worsening psychosis. Pt reports hearing a voice saying "yes no yes no". Staff report that pt was very paranoid about medications and took 10 minutes to decide to take them. He wouldn't come in from [facility] [place] and became agitated and exit -seeking this morning. He took haldol and ativan with good effect. Later in the afternoon, he was observed pacing and becoming increasingly agitated and was given lorazepam 0.5mg POX1 to good effect. He reports that he continues to hear voices that tell him things about his family and confuse him. He denies SI/ HI. Past Family Social History Coded Allergies: Chlorhexidine (Unverified Allergy, Severe, Rash, 04/28/17) Past Medical History Hx of TBI Active Scripts Fluoxetine (Prozac)20 Mg Cap20 Mg PO DAILY #30 CAP Ref 0 Prov:Angel Luis Cleaning MD 02/27/17 Lamotrigine (Lamictal)25 Mg Tab25 Mg PO BID #60 TAB Prov:Angel Luis Cleaning MD 02/27/17 Gabapentin (Neurontin)400 Mg [id number] Mg PO TID #90 CAP Prov:Angel Luis Cleaning MD 02/27/17 Baclofen 10 Mg Tab10 Mg PO DAILY #30 TAB Prov:Angel Luis Cleaning MD 02/27/17 Reported Medications Thiamine (Vitamin B-1)100 Mg [id number] Mg PO DAILY Ref 0 04/27/17 Clonazepam 1 Mg Tab1 Mg PO HS #60 TAB Ref 0 04/27/17 Clonazepam 0.5 Mg Tab0.5 Mg PO AC BREAKFAST #60 TAB Ref 0 04/27/17 Quetiapine 200 Mg [id number] Mg PO BID #60 TAB Ref 0 04/27/17 Omeprazole 40 Mg Cap40 Mg PO DAILY #30 CAP Ref 0 02/15/17 Montelukast 10 Mg Tab10 Mg PO HS #30 TAB Ref 0 02/15/17 Alendronate 70 Mg Tab70 Mg PO Q7D #4 TAB Ref 0 02/15/17 Discontinued Reported Medications Quetiapine 25 Mg Tab25 Mg PO DAILY #30 TAB Ref 0 02/15/17 Discontinued Scripts Fluoxetine (Prozac)40 Mg Cap40 Mg PO DAILY #30 CAP Ref 0 Prov:Angel Luis Cleaning MD 02/27/17 Primidone (Mysoline)50 Mg Tab50 Mg PO TID #30 TAB Prov:Angel Luis Cleaning MD 02/27/17 Cyanocobalamin (Vitamin B-12)1,000 Mcg [id number] Mcg PO DAILY #60 TAB Prov:Angel Luis Cleaning MD 02/27/17 Quetiapine 100 Mg [id number] Mg PO HS 30 Days Prov:Angel Luis Cleaning MD 02/27/17 [Benztropine Mesylate] (Cogentin)1 MG TAB No Conflict Check1 Mg PO BID #60 TAB Prov:Angel Luis Cleaning MD 02/27/17 Current Medications Medications (Trade) Dose Ordered Sig/Kang Route Start Time Stop Time Status Last Admin (Ativan) 0.5 mg Q6H PRN PO 04/28/17 11:15 04/29/17 11:24 (Ativan Inj) 0.5 mg Q6H PRN IM 04/28/17 11:15 (Benadryl) 50 mg HS PRN PO 04/28/17 11:15 (Tylenol) 650 mg Q4H PRN PO 04/28/17 11:15 (Milk Of Magnesia Liq) 30 ml DAILY PRN PO 04/28/17 11:15 (Mag-Al Plus Susp Liq) 30 ml Q6H PRN PO 04/28/17 11:15 04/29/17 06:01 (Cogentin) 1 mg Q12H PRN PO 04/28/17 11:15 (Cogentin Inj) 1 mg Q12H PRN IM 04/28/17 11:15 (Haldol) 2 mg Q6H PRN PO 04/28/17 11:15 04/29/17 11:24 (Haldol Inj) 2 mg Q6H PRN IM 04/28/17 11:15 (LaMICtal) 75 mg Q12HR PO 04/28/17 11:15 04/29/17 09:09 (Neurontin) 400 mg TID PO 04/28/17 13:00 04/29/17 13:24 (Lioresal) 10 mg Q8HR PO 04/28/17 14:00 04/29/17 13:24 (Singulair) 10 mg DAILY PO 04/29/17 09:00 04/29/17 09:09 (Protonix) 20 mg DAILY PO 04/29/17 09:00 04/29/17 09:09 (Vitamin B1) 100 mg DAILY PO 04/29/17 09:00 04/29/17 09:09 Family History pt unable to provide due to psychosis Social History . Lives with spouse. Disabled. Physical Exam see EHR No acute distress Vital Signs Vital Signs Date Time Temp Pulse Resp B/P Pulse Ox O2 Delivery O2 Flow Rate FiO2 04/29/17 06:07 97.4 120 19 142/87 97 04/28/17 12:58 Room Air Mental Status Examination Appearance disheveled Speech: Hesitant, Tangential Orientation: x3 Memory: Unremarkable Thought Process: Tangential, Thought Blocking Thought Content: Paranoid Hallucination Type: Auditory Attention and Concentration: Easily Distracted Suicidal Ideation: No Previous Suicide Attempts: No Homicidal Ideation: No Previous Homicide Attempts: No Insight: Poor Judgment: Poor Affect: Anxious Mood: Anxious, Irritable Motor Activity: Normal gait Assessment & Plan Problem List: (1) Psychosis ICD Code: F29 Assessment & Plan i agree with involuntary hospitalization. 2nd opinion paperwork completed Problem Qualifiers (1) Psychosis: Qualified Code: F28 - Other psychotic disorder not due to substance or known physiological condition Pau العلي MD Apr 29, 2017 14:58
[2017-04-29] MEDS ORDERED: LORazepam 0.5 MG TAB PO ONE (16:30)
[2017-04-29 16:47] VITALS: BP 135/92; PULSE 94; RESP 18; TEMP 98; O2SAT 97
--- NOTE | 2017-04-29 17:58 | HHI.PR ---
Subjective Remarks Patient is ambulating in [place] Denies any chest pain Tachycardic rhythm noted this morning, currently in the 90s Anxiety Objective Objective Results - Vital Signs Date Time Temp Pulse Resp B/P Pulse Ox O2 Delivery O2 Flow Rate FiO2 04/29/17 16:47 98.0 94 18 135/92 97 04/29/17 06:07 97.4 120 19 142/87 97 Result Diagram: 04/27/17 2345 04/29/17 0847 ROS General: Other (unable to assess, except for simple questions, denies any chest pain) Physical Exam Physical Exam PHYSICAL EXAMINATION GENERAL: This is a male Was ambulating in the s[place] He is awake, will answer simple questions at times , at other times communication is rambling. HEAD: Normocephalic, atraumatic OROPHARYNGEAL: Oropharynx moist with obvious saliva NECK: Supple Trachea midline without deviation. CARDIAC: Regular rhythm, regular rate, S1 and S2 are heard. No murmur rub or gallop LUNGS: Clear to auscultation bilaterally. No obvious wheezing ABDOMEN: Soft, no complaints of nausea EXTREMITIES: no edema. Pulses equal bilateral. NEUROLOGICAL: Patient mood and affect flat, anxious SKIN:Warm and dry A/P Assessment and Plan Vital signs reviewed, heart rate tachycardic this morning, noted to be 94 this afternoon Labs reviewed, noted mild acute kidney injury today, no history Check labs in the morning History of depression, Medical management per psych team psychosis, Apical management per psych team, patient's communication is rambling his conversation obsessive-compulsive disorder, Medical management atypical chest pain ,, patient noted atypical chest pain in the emergency room but denies since admission. No chest pain today on assessment Tachycardia, noted today when patient was ambulating in the s[place]. Staff states patient's had anxiety today and has been medicated several times. Due to the patient's complaint of chest pain we will do EKG, and serial troponins to rule out any type of cardiac event. Stretched to patient to please tell staff if his chest pain returned. We'll continue to monitor Discussed with nurse Discussed with Dr. jha, seen on her behalf Jessie Hassan Apr 29, 2017 17:58
[2017-04-29] MEDS: diphenhydrAMINE HCL 50 MG CAP PO PRN (21:31)
[2017-04-30] MEDS: LORazepam 1 MG TAB PO PRN ×2 (05:52→21:19)
[2017-04-30] MEDS: BACLOFEN 10 MG TAB PO SCH ×3 (05:52→21:19)
[2017-04-30 06:19] VITALS: BP 130/81; PULSE 77; RESP 17; TEMP 98.2; O2SAT 96
[2017-04-30] MEDS: THIAMINE HCL 100 MG TAB PO SCH (08:55)
[2017-04-30] MEDS: PANTOPRAZOLE SOD 20 MG DELAYED RELEASE TAB PO SCH (08:55)
[2017-04-30] MEDS: GABAPENTIN 400 MG CAP PO SCH ×3 (08:55→17:01)
[2017-04-30] MEDS: MONTELUKAST SODIUM 10 MG TAB PO SCH (08:55)
[2017-04-30] MEDS: lamoTRIgine 25 MG TAB PO SCH ×2 (08:56→21:18)
--- NOTE | 2017-04-30 10:17 | HHI.PYPN ---
Subjective Remarks Patient seen and examined with nurse. Chart reviewed. I note the patient complained of some chest pain over the weekend, although cardiac enzymes negative. I ordered EKG this morning and this is normal sinus rhythm with a QTC of 405 ms. Case discussed with nursing staff. On my exam, patient describes feeling a "roller coaster of emotion" although his affect seems somewhat blunted. He continues to describe "voices A and B saying 'yes/no, yes/ no.'" Very prominent tics noted including throat clearing, sniffing, head rubbing. These are briefly suppressible. Denies side effects from meds. No physical complaints. Spoke with patient's acting as patient's HCS. She agrees that holding psychotropics has not lessened psychiatric symptomatology. She would like to proceed with trial of Haldol/Cogentin, to which patient has responded well in the past. R/B/A for meds discussed with . Review of Systems ROS Limitations: Poor Historian Except as stated in HPI: all other systems reviewed are Neg Objective Alert: Yes [place]: Person, Place Mood: Other ("roller coaster") Affect: Blunted (perhaps a little anxious.) Memory Intact: Comment (Not formally assessed) Hallucinations: Auditory ("yes/no, yes/no.") Delusions: No Delusion Type: Other (None elicited) Suicidal: Ideation (No SI) Homicidal: Ideation (No HI) Insight/Judgment Poor Remarks Resting hand tremor. No hypomimia or gait disturbance. No dystonias or dyskinesias. Tics as above. TP somewhat perseverative. Grooming and hygiene fair. Labs Test 04/29/17 04/30/17 04/30/17 18:04 00:20 06:54 Troponin I LESS THAN 0.02 LESS THAN 0.02 LESS THAN 0.02 NG/ML NG/ML NG/ML Labs reviewed. Vitals/IOs Vital Signs Date Time Temp Pulse Resp B/P Pulse Ox O2 Delivery O2 Flow Rate FiO2 04/30/17 06:19 98.2 77 17 130/81 96 04/28/17 12:58 Room Air Assessment & Plan Problem List: (1) Psychosis ICD Code: F29 (2) Tic ICD Code: F95.9 Assessment & Plan Start Haldol 5mg BID to target psychosis along with Cogentin 1mg BID for prophylactic side effect management. Haldol may also be helpful for tics. Hospitalist input appreciated. Continue to monitor on the inpatient unit. Continue other medications and care as ordered. Justification for Cont. Inpt. Impairment in reality construction. Medication changes in process. High risk for decompensation in a less restrictive environment. Discharge Planning Pending stabilization. Request HC Surrog/Guard Advoc?: Yes Problem Qualifiers (1) Psychosis: Qualified Code: F28 - Other psychotic disorder not due to substance or known physiological condition Rich Givens MD Apr 30, 2017 10:17
[2017-04-30] MEDS: BENZTROPINE MESYLATE 1 MG TAB PO SCH ×2 (11:30→21:19)
[2017-04-30] MEDS: HALOPERIDOL 5 MG TAB PO SCH ×2 (11:30→21:18)
--- NOTE | 2017-04-30 14:11 | EKG ---
Date Performed: 04/30/2017 Time Performed: 09:15:01 PTAGE: 51 years EKG: Sinus rhythm NORMAL ECG Compared to prior tracing no significant change PREVIOUS TRACING : 02/15/2017 18.12 DOCTOR: Nik Mayers Interpretating Date/Time 04/30/2017 14:09:48
[2017-04-30 15:56] VITALS: BP 150/87; PULSE 85; RESP 18; TEMP 98.1; O2SAT 98
[2017-04-30] MEDS: diphenhydrAMINE HCL 50 MG CAP PO PRN (21:18)
[2017-04-30 22:02] LABS: HEMOGLOBIN A1a 1.4 %; HEMOGLOBIN A1b 1.6 %
[2017-04-30 22:03] LABS: HEMOGLOBIN Ao 86.1 %; HEMOGLOBIN LA1C 1.4 %; HEMOGLOBIN P3 3.7 %
[2017-05-01] MEDS: BACLOFEN 10 MG TAB PO SCH ×3 (05:02→22:00)
[2017-05-01 05:16] VITALS: BP 95/58; PULSE 71; RESP 17; TEMP 98.2; O2SAT 97
[2017-05-01] MEDS: THIAMINE HCL 100 MG TAB PO SCH (08:59)
[2017-05-01] MEDS: GABAPENTIN 400 MG CAP PO SCH ×3 (08:59→18:25)
[2017-05-01] MEDS: PANTOPRAZOLE SOD 20 MG DELAYED RELEASE TAB PO SCH (09:00)
[2017-05-01] MEDS: MONTELUKAST SODIUM 10 MG TAB PO SCH (09:00)
[2017-05-01] MEDS: BENZTROPINE MESYLATE 1 MG TAB PO SCH ×2 (09:00→21:00)
[2017-05-01] MEDS: lamoTRIgine 25 MG TAB PO SCH ×2 (09:00→21:00)
[2017-05-01] MEDS: HALOPERIDOL 5 MG TAB PO SCH ×2 (09:00→21:00)
--- NOTE | 2017-05-01 11:35 | PD.TTN ---
Patient Problems 1. Discharge planning 2. Medication compliance 3. Knowledge deficit 4. Lack of coping skills Progress Toward Goals Provider Input: Dr. Givens had his treatment team meeting to discuss treatment plan, medication and discharge. Per Dr. Givens pt will remain on unit until stablized. Patient continues to present restless. Nurse Input: Per patient's nurse Madie Riley RN patient voiced wanting bus ticket home this morning. Compliant with meds but very scrutizing . Patient very nervous "tic" present. Patient requires reassurance. Patient responding to internal stimulation. Psych Therapist Input: Patient seen on unit walking back an forth from dayroom to his room. Patient presented parnoid, anxious, confused, restless, nervous, affect blunted. Patient is medication compliant. Patient's needed to receive medication last night to help with sleep. Patient denies suicidal and homicidal ideation. Occupational Therapist Input: Cristi CEBALLOS reports patient attends 40% of groups. Patient has been confused requiring constant redirection. Patient present anxious. Sarah Silva [facility] May 01, 2017 11:35
--- NOTE | 2017-05-01 14:29 | HHI.PYPN ---
Subjective Remarks Patient seen and examined. Chart reviewed. Case discussed in treatment team. Nurse reports that patient is quite discharge focused and continues to display some tics, such as rubbing his head. On my examination today, the patient does seem a little more tremulous and starting Haldol but tics including throat clearing and sniffing are less prominent. He still describes voices saying "yes , no." Denies any SI or HI "at this time." Discharge focused. Denies side effects from medications besides the tremor. No physical complaints. Review of Systems ROS Limitations: Psychotic, Poor Historian Except as stated in HPI: all other systems reviewed are Neg Objective Alert: Yes [place]: Person, Place Mood: Calm Affect: Blunted Memory Intact: Comment (Not formally assessed) Hallucinations: Auditory ("yes/no") Delusions: No Delusion Type: Other (No delusions) Suicidal: Ideation (No SI) Homicidal: Ideation (No HI) Insight/Judgment Poor Remarks Baseline hand tremor somewhat more prominent today. Moderate cogwheeling. No other motor abnormalities. TP perseverative on discharge. Labs Labs reviewed. Vitals/IOs Vital Signs Date Time Temp Pulse Resp B/P Pulse Ox O2 Delivery O2 Flow Rate FiO2 05/01/17 05:16 98.2 71 17 95/58 97 04/28/17 12:58 Room Air Assessment & Plan Problem List: (1) Psychosis ICD Code: F29 (2) Tic ICD Code: F95.9 (3) Extrapyramidal symptom ICD Code: R29.818 Assessment & Plan Cogentin 1mg PO now. Titrate scheduled Cogentin to 2mg BID to manage worsening of tremor, which I suspect is related to EPS from Haldol. Patient might benefit from additional Haldol, but I think it is prudent to get side effect under control first. Continue to monitor on inpatient unit. Continue other medications and care as ordered. Justification for Cont. Inpt. Medication changes in process. Impairment in reality construction. High risk for decompensation and less restrictive environment. Discharge Planning Pending stabilization. Request HC Surrog/Guard Advoc?: Yes Problem Qualifiers (1) Psychosis: Qualified Code: F28 - Other psychotic disorder not due to substance or known physiological condition Rich Givens MD May 01, 2017 14:29
[2017-05-01] MEDS ORDERED: BENZTROPINE MESYLATE 1 MG TAB PO ONE (14:30)
[2017-05-01 15:23] VITALS: BP 118/77; PULSE 90; RESP 18; TEMP 98.3; O2SAT 97
--- NOTE | 2017-05-01 16:48 | HHI.PR ---
Subjective Remarks On a bed without any apparent distress Offering no complaint No chest pain or shortness of breath No headache or dizziness No abnormal pain No nausea vomiting Review of system for 10 point system otherwise unremarkable Objective Objective Results - Vital Signs Date Time Temp Pulse Resp B/P Pulse Ox O2 Delivery O2 Flow Rate FiO2 05/01/17 15:23 98.3 90 18 118/77 97 05/01/17 05:16 98.2 71 17 95/58 97 Result Diagram: 04/27/17 2345 04/29/17 0847 Physical Exam Physical Exam GENERAL: This is a male Lying on bed without any apparent distress. HEAD: Normocephalic, atraumatic OROPHARYNGEAL: Oropharynx moist with obvious saliva NECK: Supple Trachea midline without deviation. CARDIAC: Regular rhythm, regular rate, S1 and S2 are heard. No murmur rub or gallop LUNGS: Clear to auscultation bilaterally. No obvious wheezing ABDOMEN: Soft, no complaints of nausea EXTREMITIES: no edema. Pulses equal bilateral. NEUROLOGICAL: Patient mood and affect flat, anxious SKIN:Warm and dry A/P Assessment and Plan History of depression, Medical management per psych team psychosis, Apical management per psych team, patient's communication is rambling his conversation obsessive-compulsive disorder, Medical management atypical chest pain , resolved. Negative troponins Tachycardia, resolved. Medications reviewed Will follow on an as-needed basis Jennifer Garcia MD May 01, 2017 16:48
[2017-05-02 05:35] VITALS: BP 117/70; PULSE 93; RESP 18; TEMP 98.5; O2SAT 100
[2017-05-02] MEDS: BACLOFEN 10 MG TAB PO SCH ×3 (06:27→21:25)
[2017-05-02] MEDS: lamoTRIgine 25 MG TAB PO SCH ×2 (09:00→21:25)
[2017-05-02] MEDS: PANTOPRAZOLE SOD 20 MG DELAYED RELEASE TAB PO SCH (09:00)
[2017-05-02] MEDS: HALOPERIDOL 5 MG TAB PO SCH ×2 (09:00→21:25)
[2017-05-02] MEDS: BENZTROPINE MESYLATE 1 MG TAB PO SCH ×2 (09:01→21:25)
[2017-05-02] MEDS: GABAPENTIN 400 MG CAP PO SCH ×3 (09:01→17:09)
[2017-05-02] MEDS: THIAMINE HCL 100 MG TAB PO SCH (09:01)
[2017-05-02] MEDS: MONTELUKAST SODIUM 10 MG TAB PO SCH (09:37)
--- NOTE | 2017-05-02 12:25 | HHI.PYPN ---
Subjective Remarks Patient seen and examined with nurse. Chart reviewed. Case discussed with nursing staff. Patient refused Haldol last night and initially refused Haldol this morning, although it appears he did subsequently accept it. On my examination today, patient's tics are once again more prominent. He is anxious and fixated on meds. Repeats much of the same material that he has shared in the past about this. Says he needs to be back on primidone for tremors. Continues to describe voices in his head saying "yes/no." Denies command auditory hallucinations. Denies SI or HI. No reported side effects from medications. No physical complaints. Spoke with patient's /healthcare surrogate. She visited with the patient night before last, before he had started the Haldol. She found him still psychotic at that point. She said that he wanted her to call him Blayne Alvarenga. He also reportedly told her that there was a secret hiding place on the unit that led to some sort of portal out of the hospital. She agrees that primidone helped with tremors and consents to resume this medication in service of improving adherence with Haldol. She plans to be at [email or web address] [address] tomorrow. She thanks me for the call. Review of Systems ROS Limitations: Poor Historian Except as stated in HPI: all other systems reviewed are Neg Objective Alert: Yes [place]: Person, Place Mood: Anxious Affect: Restricted Memory Intact: Comment (Not formally assessed) Hallucinations: Auditory ("yes/no" ongoing) Delusions: Yes Delusion Type: Paranoid (possibly some underlying paranoia) Suicidal: Ideation (No SI) Homicidal: Ideation (No HI) Insight/Judgment Poor Remarks Hand tremor noted. Grooming and hygiene fair at best. TP perseverative. Labs Labs reviewed. Vitals/IOs Vital Signs Date Time Temp Pulse Resp B/P Pulse Ox O2 Delivery O2 Flow Rate FiO2 05/02/17 05:35 98.5 93 18 117/70 100 04/28/17 12:58 Room Air Assessment & Plan Problem List: (1) Psychosis ICD Code: F29 (2) Tic ICD Code: F95.9 (3) Extrapyramidal symptom ICD Code: R29.818 Assessment & Plan Add primidone 50 mg at bedtime. Continue Haldol and Cogentin as ordered. To consider further titration of Haldol. Continue other medications and care as ordered. Justification for Cont. Inpt. Medication changes in process. High risk for decompensation and less restrictive environment. Discharge Planning Pending outcome of [place] tomorrow. Request HC Surrog/Guard Advoc?: Yes Problem Qualifiers (1) Psychosis: Qualified Code: F28 - Other psychotic disorder not due to substance or known physiological condition Rich Givens MD May 02, 2017 12:25
[2017-05-02 18:00] VITALS: BP 128/87; PULSE 91; RESP 18; TEMP 97.6; O2SAT 97
[2017-05-02] MEDS: PRIMIDONE 50 MG TAB PO SCH (21:25)
[2017-05-03 05:58] VITALS: BP 112/68; PULSE 78; RESP 16; TEMP 97.9; O2SAT 96
[2017-05-03] MEDS: BACLOFEN 10 MG TAB PO SCH ×3 (06:28→21:34)
[2017-05-03] MEDS: HALOPERIDOL 5 MG TAB PO SCH ×3 (08:14→21:34)
[2017-05-03] MEDS: PANTOPRAZOLE SOD 20 MG DELAYED RELEASE TAB PO SCH (08:14)
[2017-05-03] MEDS: BENZTROPINE MESYLATE 1 MG TAB PO SCH ×2 (08:14→21:34)
[2017-05-03] MEDS: lamoTRIgine 25 MG TAB PO SCH ×2 (08:14→21:34)
[2017-05-03] MEDS: THIAMINE HCL 100 MG TAB PO SCH (08:14)
[2017-05-03] MEDS: GABAPENTIN 400 MG CAP PO SCH ×3 (08:14→17:07)
[2017-05-03] MEDS: MONTELUKAST SODIUM 10 MG TAB PO SCH (08:14)
[2017-05-03] MEDS: ACETAMINOPHEN 325 MG TAB PO PRN (12:01)
--- NOTE | 2017-05-03 12:40 | HHI.PYPN ---
Subjective Remarks Patient seen and examined with nurse. Chart reviewed. Case discussed with nursing staff reports that the patient is significantly calmer today. Counselor has spoken with the patient's who visited with the patient last night and felt that he was starting to improve although he remains somewhat paranoid per . On my examination today, the patient continues to complain of auditory hallucinations saying "yes/no." Tremor is significantly lessened with addition of primidone. Tics significantly lessened. No SI or HI. No new side effects from medications. No physical complaints. Review of Systems Except as stated in HPI: all other systems reviewed are Neg Objective Alert: Yes [place]: Person, Place Mood: Anxious (significantly lessened) Affect: Blunted Memory Intact: Comment (Not formally assessed) Hallucinations: Auditory ("yes/no" continues) Delusions: Yes Delusion Type: Paranoid (decreasing) Suicidal: Ideation (No SI) Homicidal: Ideation (No HI) Insight/Judgment Poor Remarks Hand tremor significantly lessened. Tics significantly decreased. No new motor abnormalities noted. Speech more relevant. TP more linear. Labs Labs reviewed. Vitals/IOs Vital Signs Date Time Temp Pulse Resp B/P Pulse Ox O2 Delivery O2 Flow Rate FiO2 05/03/17 05:58 97.9 78 16 112/68 96 Intake and Output 05/02/17 05/02/17 05/03/17 08:00 16:00 00:00 Intake Total 360 ml Balance 360 ml Assessment & Plan Problem List: (1) Psychosis ICD Code: F29 (2) Tic Assessment & Plan: Improved ICD Code: F95.9 (3) Extrapyramidal symptom Assessment & Plan: Improved ICD Code: R29.818 Assessment & Plan Now that tremor is significantly improved with addition of primidone, titrate Haldol to 5 mg 3 times daily to target psychotic symptoms. Further adjustment of primidone dosing may be required if the patient once again experiences worsening tremor with this dose adjustment. Continue to monitor on the inpatient unit. Continue other medications and care as ordered. Patient's case was presented to the [place] and placed in continuance for a period of 2 weeks. His was appointed as a healthcare surrogate. Justification for Cont. Inpt. Medication changes in process. Impairment in reality construction. High risk for decompensation in less restrictive environment. Discharge Planning Pending psychiatric stabilization. I anticipate that the patient may be stable enough for discharge by the beginning of next week. Request HC Surrog/Guard Advoc?: Yes Problem Qualifiers (1) Psychosis: Qualified Code: F28 - Other psychotic disorder not due to substance or known physiological condition Rich Givens MD May 03, 2017 12:40
[2017-05-03 16:44] VITALS: BP 114/73; PULSE 70; RESP 16; TEMP 96.4; O2SAT 99
[2017-05-03] MEDS: PRIMIDONE 50 MG TAB PO SCH (21:34)
[2017-05-04 05:26] VITALS: BP 100/62; PULSE 75; RESP 18; TEMP 97.6; O2SAT 95
[2017-05-04] MEDS: BACLOFEN 10 MG TAB PO SCH ×3 (06:00→22:18)
[2017-05-04] MEDS: THIAMINE HCL 100 MG TAB PO SCH (09:21)
[2017-05-04] MEDS: PANTOPRAZOLE SOD 20 MG DELAYED RELEASE TAB PO SCH (09:21)
[2017-05-04] MEDS: HALOPERIDOL 5 MG TAB PO SCH ×3 (09:22→22:18)
[2017-05-04] MEDS: GABAPENTIN 400 MG CAP PO SCH ×3 (09:22→18:08)
[2017-05-04] MEDS: MONTELUKAST SODIUM 10 MG TAB PO SCH (09:22)
[2017-05-04] MEDS: lamoTRIgine 25 MG TAB PO SCH ×2 (09:22→22:18)
[2017-05-04] MEDS: BENZTROPINE MESYLATE 1 MG TAB PO SCH ×2 (09:23→22:17)
[2017-05-04] MEDS: ACETAMINOPHEN 325 MG TAB PO PRN (10:39)
--- NOTE | 2017-05-04 12:20 | HHI.PYPN ---
Subjective Remarks Patient seen and examined with nurse. Chart reviewed. Case discussed with nursing staff. On my examination today, patient's tremor again seems much improved. Minimal tics. With regards to the therapeutic effect of the Haldol, the patient says that it is "too early to tell." Does not verbalize any psychotic material today. Says that he might like somewhat more primidone for tremor as he did feel a little bit tremulous later in the morning yesterday, but he is unsure if he wants or needs a scheduled dose. Reminds me of Fosamax that he is due to take Sunday. Denies side effects from medications. No physical complaints. Review of Systems Except as stated in HPI: all other systems reviewed are Neg Objective Alert: Yes [place]: Person, Place Mood: Calm (significantly less anxious) Affect: Blunted Memory Intact: Comment (Not formally assessed) Hallucinations: Other (no AVH reported) Delusions: No Delusion Type: Other (no delusional material elicited) Suicidal: Ideation (No SI) Homicidal: Ideation (No HI) Insight/Judgment Poor Remarks Minimal tics. Very subtle hand tremor. No other motor abnormalities. Thought process fairly linear today. Grooming and hygiene fair. Labs Labs reviewed. Vitals/IOs Vital Signs Date Time Temp Pulse Resp B/P Pulse Ox O2 Delivery O2 Flow Rate FiO2 05/04/17 12:04 14 05/04/17 05:26 97.6 75 100/62 95 Assessment & Plan Problem List: (1) Psychosis ICD Code: F29 (2) Tic ICD Code: F95.9 (3) Extrapyramidal symptom ICD Code: R29.818 Assessment & Plan Add Primidone 50mg daily PRN tremor. Fosamax scheduled for Sunday. Continue Haldol as ordered. Continue other medications and care as ordered. Justification for Cont. Inpt. Medication changes and process. Risk for decompensation in less restrictive environment. Discharge Planning Pending psychiatric stabilization. Possible discharge beginning of next week. Request HC Surrog/Guard Advoc?: Yes Problem Qualifiers (1) Psychosis: Qualified Code: F28 - Other psychotic disorder not due to substance or known physiological condition Rich Givens MD May 04, 2017 12:20
[2017-05-04] MEDS ORDERED: PRIMIDONE 50 MG TAB PO PRN (12:30)
[2017-05-04 17:55] VITALS: BP 120/71; PULSE 67; RESP 18; TEMP 98.2
[2017-05-04] MEDS: PRIMIDONE 50 MG TAB PO SCH (22:18)
[2017-05-05] MEDS: BACLOFEN 10 MG TAB PO SCH ×3 (05:47→21:20)
[2017-05-05 06:34] VITALS: BP 121/74; PULSE 78; RESP 16; TEMP 98; O2SAT 96
[2017-05-05] MEDS: GABAPENTIN 400 MG CAP PO SCH ×3 (08:19→17:10)
[2017-05-05] MEDS: PANTOPRAZOLE SOD 20 MG DELAYED RELEASE TAB PO SCH (08:19)
[2017-05-05] MEDS: BENZTROPINE MESYLATE 1 MG TAB PO SCH ×2 (08:20→21:21)
[2017-05-05] MEDS: MONTELUKAST SODIUM 10 MG TAB PO SCH (08:20)
[2017-05-05] MEDS: HALOPERIDOL 5 MG TAB PO SCH ×3 (08:20→21:20)
[2017-05-05] MEDS: THIAMINE HCL 100 MG TAB PO SCH (08:20)
[2017-05-05] MEDS: lamoTRIgine 25 MG TAB PO SCH ×2 (08:20→21:20)
--- NOTE | 2017-05-05 15:41 | HHI.PYPN ---
Subjective Remarks Patient was seen and case discussed with nursing. Patient is pleasant and cooperative with exam. Continues to have a mild paranoia thinking that somebody is out to get him. Auditory hallucinations are saying "yes, no." Mild bilateral hand tremors when he places his hands in front of him. No perioral movements. Behaving well on the unit Objective Alert: Yes [place]: Person, Place Mood: Calm (significantly less anxious) Affect: Restricted Memory Intact: Comment (Not formally assessed) Hallucinations: Other (yes, no) Delusions: No Delusion Type: Paranoid (that someone is out to get him) Suicidal: Ideation (No SI) Homicidal: Ideation (No HI) Insight/Judgment Poor Vitals/IOs Vital Signs Date Time Temp Pulse Resp B/P Pulse Ox O2 Delivery O2 Flow Rate FiO2 05/05/17 06:34 98.0 78 16 121/74 96 Assessment & Plan Problem List: (1) Psychosis ICD Code: F29 (2) Tic ICD Code: F95.9 (3) Extrapyramidal symptom ICD Code: R29.818 Assessment & Plan Continue current treatment plan Justification for Cont. Inpt. Patient would decompensate in a less restrictive setting Request HC Surrog/Guard Advoc?: Yes Problem Qualifiers (1) Psychosis: Qualified Code: F28 - Other psychotic disorder not due to substance or known physiological condition Camron Nice DO May 05, 2017 15:41
[2017-05-05 17:00] VITALS: BP 116/63; PULSE 74; RESP 16; TEMP 97.9; O2SAT 97
[2017-05-05] MEDS: PRIMIDONE 50 MG TAB PO SCH (21:20)
[2017-05-06 04:54] VITALS: BP 104/69; PULSE 77; RESP 18; TEMP 98.1; O2SAT 97
[2017-05-06] MEDS: BACLOFEN 10 MG TAB PO SCH ×3 (05:53→21:02)
[2017-05-06] MEDS ORDERED: ALENDRONATE SODIUM 70 MG TAB PO SCH (06:00)
[2017-05-06] MEDS: MONTELUKAST SODIUM 10 MG TAB PO SCH (08:46)
[2017-05-06] MEDS: PANTOPRAZOLE SOD 20 MG DELAYED RELEASE TAB PO SCH (08:46)
[2017-05-06] MEDS: HALOPERIDOL 5 MG TAB PO SCH ×3 (08:46→20:59)
[2017-05-06] MEDS: GABAPENTIN 400 MG CAP PO SCH ×3 (08:46→17:22)
[2017-05-06] MEDS: lamoTRIgine 25 MG TAB PO SCH ×2 (08:46→20:58)
[2017-05-06] MEDS: BENZTROPINE MESYLATE 1 MG TAB PO SCH ×2 (08:46→20:58)
[2017-05-06] MEDS: THIAMINE HCL 100 MG TAB PO SCH (08:46)
[2017-05-06] MEDS ORDERED: ALENDRONATE SODIUM 70 MG TAB PO ONE (09:00)
--- NOTE | 2017-05-06 12:08 | HHI.PYPN ---
Subjective Remarks Patient was seen and case discussed with nursing. Patient is pleasant and calm during the interview. Eating a popsicle. Continues to have yes/no hallucinations when he has a decision to think about. His compliant with his medications and cooperative in the unit. His hand tremors have improved. He is forward to a visit from his . No outbursts. Denies suicidal ideation intent or plan Objective Alert: Yes [place]: Person, Place Mood: Calm (significantly less anxious) Affect: Restricted Memory Intact: Comment (Not formally assessed) Hallucinations: Other (yes, no) Delusions: No Delusion Type: Paranoid (denies today) Suicidal: Ideation (No SI) Homicidal: Ideation (No HI) Insight/Judgment Fair Vitals/IOs Vital Signs Date Time Temp Pulse Resp B/P Pulse Ox O2 Delivery O2 Flow Rate FiO2 05/06/17 04:54 98.1 77 18 104/69 97 Assessment & Plan Problem List: (1) Psychosis ICD Code: F29 (2) Tic ICD Code: F95.9 (3) Extrapyramidal symptom ICD Code: R29.818 Assessment & Plan Continue current treatment plan Justification for Cont. Inpt. 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
[2017-05-06 16:52] VITALS: BP 108/74; PULSE 70; RESP 18; TEMP 98.2; O2SAT 97
[2017-05-06] MEDS: PRIMIDONE 50 MG TAB PO SCH (20:58)
[2017-05-06] MEDS: ACETAMINOPHEN 325 MG TAB PO PRN (21:02)
[2017-05-07 05:37] VITALS: BP 101/73; PULSE 76; RESP 16; TEMP 97.7; O2SAT 95
[2017-05-07] MEDS: BACLOFEN 10 MG TAB PO SCH ×2 (05:48→12:23)
[2017-05-07] MEDS: MONTELUKAST SODIUM 10 MG TAB PO SCH (08:32)
[2017-05-07] MEDS: lamoTRIgine 25 MG TAB PO SCH (08:32)
[2017-05-07] MEDS: BENZTROPINE MESYLATE 1 MG TAB PO SCH (08:32)
[2017-05-07] MEDS: HALOPERIDOL 5 MG TAB PO SCH (08:33)
[2017-05-07] MEDS: PANTOPRAZOLE SOD 20 MG DELAYED RELEASE TAB PO SCH (08:33)
[2017-05-07] MEDS: THIAMINE HCL 100 MG TAB PO SCH (08:33)
[2017-05-07] MEDS: GABAPENTIN 400 MG CAP PO SCH ×2 (08:33→12:23)
[2017-05-07] MEDS ORDERED: PRIM50 PO (11:50)
[2017-05-07] MEDS ORDERED: Benztropine PO (11:50)
[2017-05-07] MEDS ORDERED: LAMO25 PO (11:50)
[2017-05-07] MEDS ORDERED: HALO5TAB PO (11:50)
--- NOTE | 2017-05-07 11:50 | HHI.DS ---
Psychiatry Discharge Summary Inpatient Psychiatric care?: Yes Advance Directive: No Mental Health AdvanceDirective: No Health Care Proxy: No Admission Admission Date Apr 28, 2017 at 11:13 Admission Diagnosis: (1) Psychosis ICD Code: F29 Brief History Mr. Cintron is a 51-year-old male with history of traumatic brain injury and associated psychiatric disturbance, who presented voluntarily for psychiatric evaluation. He was placed under a [place] by the ED provider. Reviewing the electronic medical record, I note that the patient was admitted in January of this year under Dr. Cleaning. The patient seen and examined. Chart reviewed. Case discussed with nursing staff. On my examination this morning, the patient presents as somewhat anxious. He says that he has been having trouble in the evenings with believing that his son is in retirement. He comes to find out the son has not been jailed in the morning. He is reassured but then believes the same thing the next night. He says that he is hearing a voice in his head saying "yes, yes, no no." He says that he has been feeling somewhat depressed for the last several years and anxious especially within the last four to five minutes for months. He says that he feels that he has to keep busy all the time. He also struggles with easy anger and notes that he has recently been breaking objects in the home. He denies any suicidal or homicidal ideation. Remainder of the psychiatric ROS is negative. Tobacco Use In Past 30 Days: No Tobacco Past 30 Days Alcohol Use: Monthly or Less Hospital Course Patient was admitted to a locked, inpatient psychiatric unit. General medical consultation was obtained. Appropriate precautions were in place throughout patient's hospital stay. Patient was seen and examined daily on the unit by psychiatry and also visited by counselor. Psychotropic medications were adjusted. Patient did experience some EPS from Haldol that was managed with Cogentin. He tolerated psychotropics well otherwise without side effects. Patient had significant improvement in presenting psychiatric symptomatology during the course of his hospital stay. There was no evidence of any suicidality or homicidality on the inpatient unit. Counselor reach out to the patient's on the day of discharge and reports to me that patient's finds the patient much improved and feels comfortable accepting him home at this time. On the day of discharge: Patient seen and examined with counselor and nurse. Chart reviewed. Case discussed with nursing staff. No behavioral issues noted overnight. He is noted to be more social by nursing staff. On my examination today, patient is significantly less anxious versus admission. No depressive or hypomanic/manic symptoms elicited. Denies suicidal or homicidal ideation, intent or plan. Tics improved. Denies audiovisual hallucinations. No delusions elicited. No side effects from medications. No physical complaints. Weighing the acute, chronic, and protective factors and based on the available evidence, I ferryboat ticket taker to a reasonable degree of medical certainty that the patient is at low imminent risk of harm to self or others from a mental illness as defined under the [place], and his level of function is adequate for outpatient care. Patient will be discharged home today with psychiatric follow-up as arranged by counselor. Patient is also to follow-up with primary care. I counseled patient regarding warning signs for need to return to the psychiatric emergency room is part of the general safety plan. Results Blood Pressure 101 / 73 Vital Signs Date Time Temp Pulse Resp B/P Pulse Ox O2 Delivery O2 Flow Rate FiO2 05/07/17 05:37 97.7 76 16 101/73 95 Item Value Date Time White Blood Count 5.4 TH/MM3 04/27/175 Hemoglobin 14.3 GM/DL 04/27/172344 Platelet Count 304 TH/MM3 04/27/17 2345 Sodium Level 136 MEQ/L 04/29/17 0847 Potassium Level 3.8 MEQ/L 04/29/17 0847 Chloride Level 104 MEQ/L 04/29/17 0847 Carbon Dioxide Level 21.4 MEQ/L 04/29/17 0847 Blood Urea Nitrogen 12 MG/DL 04/29/17 0847 Creatinine 1.32 MG/DL H 04/29/17 0847 Aspartate Amino Transf (AST/SGOT) 20 U/L 04/29/17 0847 Alanine Aminotransferase (ALT/SGPT) 22 U/L 04/29/17 0847 Alkaline Phosphatase 141 U/L H 04/29/17 0847 Urine Opiates Screen NEG 04/27/17 2345 Urine Barbiturates Screen NEG 04/27/17 2345 Urine Amphetamines Screen NEG 04/27/17 2345 Urine Benzodiazepines Screen NEG 04/27/17 2345 Urine Cocaine Screen NEG 04/27/17 2345 Urine Cannabinoids Screen NEG 04/27/17 2345 Ethyl Alcohol Level LESS THAN 3 MG/DL 04/27/17 2345 Summary of Procedures None done Imaging Last Impressions Head CT 04/27/17 0000 Signed Impressions: Service Date/Time: Friday, April 28, 2017 01:21 - CONCLUSION: Previous right-sided ventriculostomy catheter. The rest of the intracranial exam is normal except for mild prominence of the ventricles. Jean Paul Nelson MD Pending results at discharge: No Medications # of Antipsychotic meds at D/C: 1 Approp Antipsych med options 1 - Minimum of three failed multiple trials of monotherapy. 2 - Documented plan to taper to monotherapy due to previous use of multiple meds OR cross-taper in progress at D/C. 3 - Documentation of augmentation of Clozapine. 4 - Justification other than those listed in allowable values 1-3, document here : Discharge Discharge Date: May 07, 2017 Discharge Diagnosis: (1) Psychosis Diagnosis: Principal (improved versus admission) ICD Code: F29 (2) Tic Diagnosis: Secondary (improved) ICD Code: F95.9 Mental Status Exam at Disch Patient is casually dressed. Patient is well groomed. Patient is awake and alert and oriented to person and hospital at least. No evidence of delirium. Tics significantly reduced and no other abnormalities appreciated. No hand tremor, no dystonia, no dyskinesia noted. Speech is within normal limits for rate, tone, volume. Language and fund of knowledge average. Mood is fair. Affect is much more full and reactive relative to admission. Thought process a little perseverative but generally linear. No delusions elicited. Denies audiovisual hallucinations and does not appear internally stimulated. Denies suicidal or homicidal ideation, intent, or plan. Insight and judgment seem poor. Pt Condition on Discharge: Stable Discharge Disposition: Discharge Home Discharge Instructions Diet Instructions: As Tolerated, No Restrictions Activities you can perform: Weight Bearing as Uri Scheduled Appointment: as per counselor's notes New Medications: Haloperidol (Haloperidol) 5 Mg Tab 5 MG PO DAILY@09,15,21 Mental Health Days 15 Ref 1 TAB Lamotrigine (Lamictal) 25 Mg Tab 75 MG PO Q12HR Seizure Days 15 Ref 1 TAB Primidone (Mysoline) 50 Mg Tab 50 MG PO HS Tremor Days 15 Ref 1 TAB ([Benztropine]) 1 MG TAB 2 MG PO Q12HR Side effect management Days 15 Ref 1 TAB Continued Medications: Alendronate (Alendronate) 70 Mg Tab 70 MG PO Q7D Osteporosis Treatment #4 Ref 0 TAB Baclofen (Baclofen) 10 Mg Tab 10 MG PO DAILY health #30 TAB Gabapentin (Neurontin) 400 Mg Cap 400 MG PO TID health #90 CAP Montelukast (Montelukast) 10 Mg Tab 10 MG PO HS #30 Ref 0 TAB Omeprazole (Omeprazole) 40 Mg Cap 40 MG PO DAILY #30 Ref 0 CAP Thiamine (Vitamin B-1) 100 Mg Tab 100 MG PO DAILY Nutritional Supplement Ref 0 TAB Discontinued Medications: Clonazepam (Clonazepam) 0.5 Mg Tab 0.5 MG PO AC BREAKFAST #60 Ref 0 TAB Clonazepam (Clonazepam) 1 Mg Tab 1 MG PO HS #60 Ref 0 TAB Fluoxetine (Prozac) 20 Mg Cap 20 MG PO DAILY health #30 Ref 0 CAP Lamotrigine (Lamictal) 25 Mg Tab 25 MG PO BID health #60 TAB Quetiapine (Quetiapine) 200 Mg Tab 200 MG PO BID #60 Ref 0 TAB Discharge Time <= 30 minutes Discharge/Advance Care Plan Health Problems: (1) Psychosis (2) Tic (3) Extrapyramidal symptom Goals to promote your health * To prevent worsening of your condition and complications * To maintain your health at the optimal level Directions to meet your goals Take your medications as prescribed Follow your dietary instruction Follow activity as directed Keep your appointments as scheduled Take your immunizations and boosters as scheduled If your symptoms worsen call your PCP, if no PCP go to Urgent Care Center or Emergency Room For 23/04 questions related to your inpatient stay or results of tests pending at discharge, please contact Dr. Rich Givens at Smoking is Dangerous to Your Health. 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
== END 2017-05-07 13:20 | disposition home or self-care (01) | DRG 885 ==
LOC: NEPD 19:56 → NEDA 04-28 11:13 → H260 04-28 13:29
PROVIDERS: ADMIT Psychiatry & Neurology Psychiatry; ATTEND Psychiatry & Neurology Psychiatry
DX: F28 Other psychotic disorder not due to a substance or known physiological condition (principal); G91.9 Hydrocephalus, unspecified; N17.9 Acute kidney failure, unspecified; G40.909 Epilepsy, unspecified, not intractable, without status epilepticus; F20.9 Schizophrenia, unspecified; F32.9 Major depressive disorder, single episode, unspecified; F41.9 Anxiety disorder, unspecified; Z87.820 Personal history of traumatic brain injury; H91.90 Unspecified hearing loss, unspecified ear; Z98.2 Presence of cerebrospinal fluid drainage device; F42.9 Obsessive-compulsive disorder, unspecified; I25.10 Atherosclerotic heart disease of native coronary artery without angina pectoris; R00.0 Tachycardia, unspecified; F95.9 Tic disorder, unspecified
CPT/HCPCS: 70450; 80053; 80061; 80307; 83036; 84484; 85025; 93005; Q0163

== ENCOUNTER 2017-06-03 14:58 | Emergency (ER) | payer MEDICARE, MEDICAID ==
[~2017-06-03] VITALS: Ht 172.7 cm; Wt 81.3 kg
[~2017-06-03 14:58] MED LIST changes: -BENZ1TAB PO; -FLUO20CA4 PO; +HALO5TAB PO; -PROZ20CA11 PO; -PROZ40CA PO; -QUET1TAB7 PO; -QUET1TAB8 PO; -THIA100T PO; -VITA10002 PO; +VITA100T54 PO
[2017-06-03 15:05] VITALS: BP 114/74; PULSE 93; RESP 16; TEMP 98.6; O2SAT 94
--- NOTE | 2017-06-03 15:31 | PD ---
HPI Chief Complaint: Flank/Kidney Pain Time Seen by Provider: 15:21 Travel History International Travel<30 days: No Contact w/Intl Traveler<30days: No Traveled to known affect area: No History of Present Illness HPI This patient complains of pain in his left side. Duration 3 days. Severity is moderate. Worse with movement or deep breath. Denies injury. No shortness of breath or hemoptysis or fever. No alleviating factors PFSH Past Medical History Anxiety: Yes Depression: Yes Cancer: No Cardiovascular Problems: Yes Chest Pain: Yes Diminished Hearing: Yes ([place]) Endocrine: No Gastrointestinal Disorders: Yes (Gallbadder removed) Genitourinary: No Musculoskeletal: Yes Neurologic: Yes (HYDROCEPHALUS) Psychiatric: Yes Reproductive: No Respiratory: No Schizophrenia: Yes Seizures: Yes Past Surgical History Cholecystectomy: Yes Genitourinary Surgery: Yes (HYDROCELE) Neurologic Surgery: Yes (GENERATION TECHNOLOGIST SHUNT AND REVISION/MULTIPLE SUBDURAL/ANOTHER REVISION) Other Surgery: Yes Social History Alcohol Use: No Tobacco Use: No Substance Use: No Allergies-Medications (Allergen,Severity, Reaction): Coded Allergies: chlorhexidine (Unverified Allergy, Severe, Rash, 06/03/17) Reported Meds & Prescriptions Reported Meds & Active Scripts Active Zithromax Z-Yaya (Azithromycin) 250 Mg Dspk 250 Mg PO DIRECTED 500 MG (2 tabs) day 1, then 1 tab days 2-5. Mysoline (Primidone) 50 Mg Tab 50 Mg PO HS 15 Days Lamictal (Lamotrigine) 25 Mg Tab 75 Mg PO Q12HR 15 Days Haloperidol 5 Mg Tab 5 Mg PO DAILY@09,15,21 15 Days [Benztropine] 1 MG Tab 2 Mg PO Q12HR 15 Days Neurontin (Gabapentin) 400 Mg Cap 400 Mg PO TID Reported Baclofen 20 Mg Tab 20 Mg PO BID Omeprazole 40 Mg Cap 40 Mg PO DAILY Montelukast (Montelukast Sodium) 10 Mg Tab 10 Mg PO HS Alendronate (Alendronate Sodium) 70 Mg Tab 70 Mg PO Q7D Review of Systems General / Constitutional: No: Fever Eyes: No: Visual changes HENT: No: Headaches Cardiovascular: Positive: Chest Pain or Discomfort Respiratory: No: Shortness of Breath Gastrointestinal: No: Abdominal Pain Genitourinary: No: Dysuria Musculoskeletal: Positive: Pain Skin: No Rash Neurologic: No: Weakness Psychiatric: No: Depression Endocrine: No: Polydipsia Hematologic/Lymphatic: No: Easy Bruising Physical Exam Narrative GENERAL: Well-nourished, well-developed patient in no apparent distress. SKIN: Focused skin assessment reveals no rash and nodules. Skin is Warm and dry. HEAD: Atraumatic. Normocephalic. EYES: Pupils equal and round. No scleral icterus. No injection or drainage. ENT: No nasal bleeding or discharge. Mucous membranes pink and moist. NECK: Trachea midline. No JVD. CARDIOVASCULAR: Regular rate and rhythm. No murmur appreciated. RESPIRATORY: No accessory muscle use. Clear to auscultation. Breath sounds equal bilaterally. GASTROINTESTINAL: Abdomen soft, non-tender, nondistended. Hepatic and splenic margins not palpable. MUSCULOSKELETAL: No obvious deformities. No clubbing. No cyanosis. No edema. Has readily reproducible chest wall tenderness in the left anterior axillary line. No crepitus or paradoxical rib movement. No bruising NEUROLOGICAL: Awake and alert. No obvious cranial nerve deficits. Motor grossly within normal limits. Normal speech. PSYCHIATRIC: Appropriate mood and affect; insight and judgment normal. Data Data Last Documented VS Vital Signs Date Time Temp Pulse Resp B/P (MAP) Pulse Ox O2 Delivery O2 Flow Rate FiO2 06/03/17 15:05 98.6 93 16 114/74 (87) 94 Orders Orders Chest, Single Ap (06/03/17 ) [facility] Medical Decision Making Medical Screen Exam Complete: Yes Emergency Medical Condition: Yes Medical Record Reviewed: Yes Differential Diagnosis Rib contusion, musculoskeletal pain, pneumothorax Narrative Course I have reviewed the patient's electronic medical record. I reviewed his chest x-ray which shows some mild inflammatory process in both bases but no fracture or pneumothorax Patient has clear-cut readily reproducible chest wall pain. This is noncardiac and will not require emergent or inpatient evaluation I don't think the chest x-ray findings explain his chest wall pain. However he does have history of TBI and does have cough so I'm going to write him Zithromax Diagnosis Primary Impression: Musculoskeletal chest pain Additional Impression: Bronchopneumonia Additional Instructions: The patient was advised to follow up with their physician and return if they worsen. Med/Other Pt SpecificInfo: Prescription(s) given Scripts Azithromycin (Zithromax Z-Yaya) 250 Mg Dspk 250 MG PO DIRECTED for Infection, #1 DSPK 0 Refills 500 MG (2 tabs) day 1, then 1 tab days 2-5. Prov: Isai Lee MD 06/03/17 Disposition: 01 DISCHARGE HOME Condition: Stable Isai Lee MD Jun 03, 2017 15:31
[2017-06-03] MEDS ORDERED: BACL20TA PO (15:36)
--- NOTE | 2017-06-03 15:57 | RADRPT ---
EXAM DATE/TIME: 06/03/2017 15:40 [facility] COMPARISON: CHEST SINGLE AP, April 16, 2014, 3:15. INDICATIONS : Left lower chest pain for 3 days MEDICAL HISTORY : hydrocephalus SURGICAL HISTORY : vp organizational development shunt ENCOUNTER: Initial ACUITY: 3 days PAIN SCORE: 7/10 LOCATION: Left lower chest FINDINGS: Bibasilar parenchymal changes are evident suspicious for inflammatory process. The heart and pulmonar y vascularity are normal. The portion of the bony skeleton visualized is unremarkable. CONCLUSION: Bibasilar parenchymal changes suspicious for inflammatory process. Emilio Hernandez MD FACR on June 03, 2017 at 15:54 Board Certified Radiologist. This report was verified electronically.
[2017-06-03] MEDS ORDERED: ZITHTAB PO (16:02)
== END 2017-06-03 16:31 | disposition home or self-care (01) ==
LOC: PHED 14:58
DX: R07.89 Other chest pain (principal); J18.0 Bronchopneumonia, unspecified organism; G91.9 Hydrocephalus, unspecified; H91.90 Unspecified hearing loss, unspecified ear; Z98.2 Presence of cerebrospinal fluid drainage device
CPT/HCPCS: 71010; 99283

== ENCOUNTER 2017-11-25 06:20 | Observation (INO) | payer MEDICARE, MEDICAID ==
[2017-11-25] VITALS (7 sets, daily range): BP systolic 97–117; BP diastolic 63–91; PULSE 64–84; RESP 16–18; TEMP 97.5–98.2; O2SAT 95–99
[~2017-11-25 06:20] MED LIST changes: -BACL10TA PO; +BACL20TA PO; -VITA100T54 PO; +ZITHTAB PO
[2017-11-25] MEDS ORDERED: NUED20CA PO (06:39)
[2017-11-25] MEDS ORDERED: METOCLOPRAMIDE HCL 10 MG/2 ML VIAL IV PUSH ONE (06:45)
[2017-11-25] MEDS ORDERED: SODIUM CHLORIDE 0.9% FLUSH 10 ML FLUSH IVF PRN (06:45)
[2017-11-25 06:52] LABS: BASOPHIL % 0.5 % (0.0-2.0); EOSINOPHIL # 0.2 TH/MM3 (0-0.4); EOSINOPHIL % 2.8 % (0.0-4.0); HEMATOCRIT 35.6 % (39.0-51.0); HEMOGLOBIN 12.4 GM/DL (13.0-17.0); LYMPH % 19.9 % (9.0-44.0); LYMPHOCYTE # 1.2 TH/MM3 (1.0-4.8); MEAN CELL VOLUME 88.8 FL (80.0-100.0); MEAN CORPUSCULAR HEMOGLOBIN 30.8 PG (27.0-34.0); MEAN CORPUSCULAR HGB CONC 34.7 % (32.0-36.0); MONOCYTE # 0.5 TH/MM3 (0-0.9); NEUT % 68.8 % (16.0-70.0); PLATELET COUNT 260 TH/MM3 (150-450); RED BLOOD COUNT 4.02 MIL/MM3 (4.50-5.90); WHITE BLOOD COUNT 5.8 TH/MM3 (4.0-11.0)
--- NOTE | 2017-11-25 06:53 | RADRPT ---
EXAM DATE/TIME: 11/25/2017 06:45 [facility] COMPARISON: CT BRAIN W/O CONTRAST, April 28, 2017, 1:21. INDICATIONS : Trauma. Fall. RADIATION DOSE: 56.35 CTDIvol (mGy) MEDICAL HISTORY : Seizures. Cardiovascular disease Hydrocephalus SURGICAL HISTORY : Cholecystectomy. TYPE MAPPER Shunt ENCOUNTER: Initial ACUITY: 1 day PAIN SCALE: 5/10 LOCATION: cranial TECHNIQUE: Multiple contiguous axial images were obtained of the head. Using automated exposure control and adj ustment of the mA and/or kV according to patient size, radiation dose was kept as low as reasonably a chievable to obtain optimal diagnostic quality images. DICOM format image data is available electro nically for review and comparison. FINDINGS: CEREBRUM: Moderate chronic ventriculomegaly. Ventriculostomy catheter again present entering right parietal. N o evidence of midline shift, mass lesion, hemorrhage or acute infarction. No extra-axial fluid colle ctions are seen. POSTERIOR FOSSA: The cerebellum and brainstem are intact. The 4th ventricle is midline. The cerebellopontine angle i s unremarkable. EXTRACRANIAL: The visualized portion of the orbits is intact. SKULL: Multiple old humberto holes again seen. CONCLUSION: No bleed or other acute intracranial abnormality. Chronic ventriculomegaly unchanged. Jhon Graf MD on November 25, 2017 at 6:51 Board Certified Radiologist. This report was verified electronically.
--- NOTE | 2017-11-25 07:00 | RADRPT ---
EXAM DATE/TIME: 11/25/2017 06:45 [facility] COMPARISON: No previous studies available for comparison. INDICATIONS : Trauma. Fall. RADIATION DOSE: 28.42 CTDIvol (mGy) MEDICAL HISTORY : Seizures. Cardiovascular disease Hydrocephalus SURGICAL HISTORY : Cholecystectomy. INDEPENDENT AGENT MUSIC EDUCATION Shunt ENCOUNTER: Initial ACUITY: 1 day PAIN SCALE: 5/10 LOCATION: Bilateral neck TECHNIQUE: Volumetric scanning of the cervical spine was performed. Multiplanar reconstructions in the sagittal, coronal and oblique axial planes were performed. Using automated exposure control and adjustment o f the mA and/or kV according to patient size, radiation dose was kept as low as reasonably achievable to obtain optimal diagnostic quality images. DICOM format image data is available electronically f or review and comparison. FINDINGS: VERTEBRAE: Normal vertebral body height. ALIGNMENT: No evidence of subluxation. There is mild to moderate disc space narrowing with uncovertebral and facet osteoarthritis at each le inés from C2/C3-C6/C7. There is mild bilateral foraminal stenosis at C5/C6 and C6/C7. There is mild to moderate left foraminal stenosis at C3/C4. The atlantoaxial relationship is normal. Paravertebral soft tissues are within normal limits. CONCLUSION: Intact cervical spine. Degenerative changes as above. John Graf MD on November 25, 2017 at 6:58 Board Certified Radiologist. This report was verified electronically.
[2017-11-25 07:21] LABS: ALBUMIN 3.3 GM/DL (3.4-5.0); ALT (GPT) 17 U/L (12-78); AST (GOT) 24 U/L (15-37); BICARBONATE 27.5 MEQ/L (21.0-32.0); BLOOD UREA NITROGEN 18 MG/DL (7-18); CALCIUM 8.2 MG/DL (8.5-10.1); CHLORIDE 108 MEQ/L (98-107); CREATININE 1.23 MG/DL (0.60-1.30); GLOMERULAR FILTRATION RATE 62 ML/MIN (>89); GLUCOSE,RANDOM 89 MG/DL (74-106); SODIUM (NA) 140 MEQ/L (136-145)
[2017-11-25 07:25] LABS: ALKALINE PHOSPHATASE 84 U/L (45-117); TOTAL BILIRUBIN ADULT 0.2 MG/DL (0.2-1.0); TOTAL PROTEIN 6.7 GM/DL (6.4-8.2); TROPONIN I LESS THAN 0.02 NG/ML (0.02-0.05)
--- NOTE | 2017-11-25 07:43 | PD ---
Physical Exam Narrative Received sign out from previous team to follow up labs and reevaluate. 52yo M with PMH of TBI with associated psych disturbance, seizure disorder on lamictal presents to the ED with c/o altered mental status s/p fall today. As per his , pt was found in the bathroom and had fallen once and hit his head. His said he fell a second time and then a third time and his eyes rolled back on his third time. Said he was not back to his baseline. Said his speech is slower than normal and he seems more confuse. Pt has a history of hydrocephalus s/p NUTRITION CONSULTANT shunt, TBI and has a team of neurologist, neuropsychologist , neurosurgeon from [facility]. Denies any fever, chest pain, sob, n/v, abdominal pain, focal weakness or numbness. Labs reviewed, no leukocytosis. CMP unremarkable. Troponin negative. CT cspine showed intact cervical spine Degenerative changes. CT brain showed no bleed or other acute intracranial abnormality. Chronic ventriculomegaly unchanged. Pt is AAOx2, muscle strength 5/5 all all extremities. Sensation intact bilaterally. I feel that the altered mental status may have a psychiatric component but he lives with his and his is stating that he is not back to his baseline mental status so I will admit him for further evaluation and likely neurology consult. Discussed with Dr. Lugo and accepted to her service for observation. Data Data Last Documented VS Vital Signs Date Time Temp Pulse Resp B/P (MAP) Pulse Ox O2 Delivery O2 Flow Rate FiO2 11/25/17 07:13 73 16 97/63 (74) 95 Room Air Orders Orders Complete Blood Count With Diff (11/25/17 06:31) Comprehensive Metabolic Panel (11/25/17 06:31) Ecg Monitoring (11/25/17 06:31) Iv Access Insert/Monitor (11/25/17 06:31) Oximetry (11/25/17 06:31) Sodium Chloride 0.9% Flush (Ns Flush) (11/25/17 06:45) Ct Brain W/O Iv Contrast(Rout) (11/25/17 ) Ct Cerv Spine W/O Contrast (11/25/17 ) Metoclopramide Inj (Reglan Inj) (11/25/17 06:45) Electrocardiogram (11/25/17 ) Troponin I (11/25/17 06:31) Lamictal (Lamotrigine) (11/25/17 07:35) Admit Order (Ed Use Only) (11/25/17 08:18) Labs Laboratory Tests Test 11/25/17 06:30 White Blood Count 5.8 TH/MM3 Red Blood Count 4.02 MIL/MM3 Hemoglobin 12.4 GM/DL Hematocrit 35.6 % Mean Corpuscular Volume 88.8 FL Mean Corpuscular Hemoglobin 30.8 PG Mean Corpuscular Hemoglobin Concent 34.7 % Red Cell Distribution Width 13.0 % Platelet Count 260 TH/MM3 Mean Platelet Volume 9.0 FL Neutrophils (%) (Auto) 68.8 % Lymphocytes (%) (Auto) 19.9 % Monocytes (%) (Auto) 8.0 % Eosinophils (%) (Auto) 2.8 % Basophils (%) (Auto) 0.5 % Neutrophils # (Auto) 4.0 TH/MM3 Lymphocytes # (Auto) 1.2 TH/MM3 Monocytes # (Auto) 0.5 TH/MM3 Eosinophils # (Auto) 0.2 TH/MM3 Basophils # (Auto) 0.0 TH/MM3 CBC Comment DIFF FINAL Differential Comment Blood Urea Nitrogen 18 MG/DL Creatinine 1.23 MG/DL Random Glucose 89 MG/DL Total Protein 6.7 GM/DL Albumin 3.3 GM/DL Calcium Level 8.2 MG/DL Alkaline Phosphatase 84 U/L Aspartate Amino Transf (AST/SGOT) 24 U/L Alanine Aminotransferase (ALT/SGPT) 17 U/L Total Bilirubin 0.2 MG/DL Sodium Level 140 MEQ/L Potassium Level 3.9 MEQ/L Chloride Level 108 MEQ/L Carbon Dioxide Level 27.5 MEQ/L Anion Gap 5 MEQ/L Estimat Glomerular Filtration Rate 62 ML/MIN Troponin I LESS THAN 0.02 NG/ML [facility] Supervised Visit with ARAMIS: No Interpretation(s) EKG: Sinus bradycardia at 58bpm. Normal axis. No ST segment elevation or depression. QTc 407ms. Diagnosis Primary Impression: Altered mental status Qualified Codes: R41.82 - Altered mental status, unspecified Admitting Information Admitting Physician Requests: Observation Amparo Bowden DO Nov 25, 2017 07:43
[2017-11-25] MEDS ORDERED: ONDANSETRON HCL 4 MG/2 ML VIAL IVP PRN (08:30)
[2017-11-25] MEDS ORDERED: NALOXONE HCL 0.4 MG/ML AMP IV PUSH PRN (08:30)
[2017-11-25] MEDS ORDERED: SODIUM CHLORIDE 0.9% FLUSH 10 ML FLUSH IV FLUSH PRN (08:30)
--- NOTE | 2017-11-25 09:13 | EKG ---
Date Performed: 11/25/2017 Time Performed: 06:30:34 PTAGE: 52 years EKG: SINUS BRADYCARDIA BORDERLINE ECG NO PREVIOUS TRACING DOCTOR: John Frankel Interpretating Date/Time 11/25/2017 09:12:31
--- NOTE | 2017-11-25 11:09 | RADRPT ---
EXAM DATE/TIME: 11/25/2017 09:59 [facility] COMPARISON: No previous studies available for comparison. INDICATIONS : Syncope. MEDICAL HISTORY : Seizures. Hydrocephalus. Chest pain. SURGICAL HISTORY : Cholecystectomy. Pelvic surgery. EDGE SAWYER shunt and revision/ multiple subdural/ another revision. Hydr ocele removal. ENCOUNTER: Initial ACUITY: 1 day PAIN SCORE: 5/10 LOCATION: Bilateral neck PEAK SYSTOLIC VELOCITIES (cm/sec): ICA/CCA RATIO: Right: 0.7 Left: 0.7 ICA: Right: 51 Left: 67 CCA: Right: 72 Left: 94 ECA: Right: 58 Left: 56 VERTEBRAL: Right: 24 antegrade Left: 36 antegrade Elevated flow velocities and ICA/CCA ratios have been found to correlate with increased degrees of vessel stenosis, calculated as percentage of diameter relative to a normal segment of distal ICA/CCA FINDINGS: RIGHT CAROTID: No significant stenosis is visualized. The waveforms are within normal limits. LEFT CAROTID: No significant stenosis is visualized. The waveforms are within normal limits. VERTEBRAL ARTERIES: Antegrade flow is seen in both vertebral arteries. MISCELLANEOUS: None. CONCLUSION: No significant plaque is seen. John Ronquillo MD on November 25, 2017 at 11:07 Board Certified Radiologist. This report was verified electronically.
--- NOTE | 2017-11-25 12:02 | RADRPT ---
EXAM DATE/TIME: 11/25/2017 11:18 [facility] COMPARISON: CT BRAIN W/O CONTRAST, April 28, 2017, 1:21. CT BRAIN W/O CONTRAST, November 25, 2017, 6:45. INDICATIONS : Cephalgia. Syncope with collapse. MEDICAL HISTORY : TBI. SURGICAL HISTORY : Cholecystectomy. Programable JUTE BAG SEWER shunt. ENCOUNTER: Initial ACUITY: 1 day PAIN SCORE: 0/10 LOCATION: cranial TECHNIQUE: Multiplanar, multisequence MRI of the brain was performed without contrast. FINDINGS: CEREBRUM: The ventricles are prominent for age but stable compared to the prior exams. There is a right-sided v entricular catheter in place. This is unchanged in position compared to the prior studies. No evidenc e of midline shift, mass lesion, hemorrhage or acute infarction. No extraaxial fluid collections are seen. The pituitary gland and suprasellar cistern are normal in configuration. WHITE MATTER: No significant signal abnormalities are seen in the white matter. POSTERIOR FOSSA: The cerebellum and brainstem are intact. The 4th ventricle is midline. The cerebellopontine angle is unremarkable. The cerebellar tonsils are normal in position. DIFFUSION IMAGING: No focal areas of restricted diffusion are seen. No evidence of acute infarction. EXTRACRANIAL: The visualized portions of the orbits and paranasal sinuses are unremarkable. CONCLUSION: 1. Stable ventriculomegaly with a right sided ventricular shunt catheter in place. 2. No acute pathology. Ruddy Childers MD on November 25, 2017 at 11:54 Board Certified Radiologist. This report was verified electronically.
--- NOTE | 2017-11-25 12:14 | HHI.HP ---
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 Patient stated that he fell 3 times this morning when going to the bathroom. His stated that she only witness one fall where she saw his eyes rolled back. No abnormal movements or fecal/urinary incontinence. Patient stated that he had LOC for a few seconds. He said that he remembers falling but does not know what happened during his fall. He denies any chest pain, shortness of breathing , palpitation, lightheadedness dizziness that occurred this fall. Patient does have a history of multiple falls. His stated that his falls are due to his brain injury. Patient's also concerned that he is hallucinating. She said for the past month he has been delusional. He would think that he spoke to certain relatives which she did not. She also stated that a couple days ago he took money at the [facility] to get to the bank because he thought he had $1 million in the bank. She stated that his last episode was a few days ago. Patient was admitted to inpatient psychiatry for the exact same reason. She stated that he has been having more episodes when they moved to [place]. At the moment patient denies any auditory or visual hallucination. He is also not delusional at the moment. Patient denied any headache, visual changes, nausea vomiting, focal neurological deficits. in the ED Dr. Bowden stated that his thought patient was altered but she did not feel that patient was altered. When I saw patient he was AAO 4. He answer all my questions and follow commands appropriately. Patient's also stated that patient is being treated for PBA with Nuedexta. She stated that his neurologist started patient on this a week ago. Discussed case with patient's ER nurse who stated that since patient had a ACETALDEHYDE CONVERTER OPERATOR shunt in place that radiologist requested that a neurologist is consulted. All other review systems reviewed and negative. Past Family Social History Past Medical History Normal pressure hydrocephalus with ACETALDEHYDE CONVERTER OPERATOR shunt in place. Last saw providers in [place] about 6 months ago. Schizophrenia Traumatic brain injury secondary to fall History of subdural hematoma secondary to fall Osteoporosis PBA Past Surgical History ACETALDEHYDE CONVERTER OPERATOR shunt placement Right hip surgery Multiple brain surgeries which included a ACETALDEHYDE CONVERTER OPERATOR shunt placement and repair Reported Medications Mysoline (Primidone) 50 Mg Tab 50 Mg PO HS 15 Days Lamictal (Lamotrigine) 25 Mg Tab 75 Mg PO Q12HR 15 Days Haloperidol 5 Mg Tab 5 Mg PO DAILY@09,15,21 15 Days [Benztropine] 1 MG Tab 2 Mg PO Q12HR 15 Days Neurontin (Gabapentin) 400 Mg Cap 400 Mg PO TID Reported Nuedexta 20-10 mg (Dextromethorphan HBr-Quinidine) 20 Mg-10 Mg Cap 1 Cap PO BID Baclofen 20 Mg Tab 20 Mg PO BID Omeprazole 40 Mg Cap 40 Mg PO DAILY Montelukast (Montelukast Sodium) 10 Mg Tab 10 Mg PO HS Alendronate (Alendronate Sodium) 70 Mg Tab 70 Mg PO Q7D Allergies: Coded Allergies: chlorhexidine (Unverified Allergy, Severe, Rash, 06/03/17) Active Ordered Medications Current Medications Sodium Chloride (NS Flush) 2 ml UNSCH PRN IVF FLUSH AFTER USING IV ACCESS Last administered on 11/25/17at 07:10; Start 11/25/17 at 06:45 Metoclopramide HCl (Reglan Inj) 10 mg ONCE ONCE IV PUSH Last administered on at 07:10; Start 11/25/17 at 06:45; Stop 11/25/17 at 06:46; Status DC Sodium Chloride 1,000 ml @ 75 mls/hr [id number] IV Last administered on at 12:55; Start 11/25/17 at 08:16 Sodium Chloride (NS Flush) 2 ml UNSCH PRN IV FLUSH FLUSH AFTER USING IV ACCESS ; Start 11/25/17 at 08:30 Sodium Chloride (NS Flush) 2 ml BID IV FLUSH Last administered on 11/25/17at 12: 56; Start 11/25/17 at 09:00 Acetaminophen (Tylenol) 650 mg Q4H PRN PO TEMP > 100.4; Start 11/25/17 at 08:30 Ondansetron HCl (Zofran Inj) 4 mg Q6H PRN IVP NAUSEA OR VOMITING; Start at 08:30 Naloxone HCl (Narcan Inj) 0.4 mg UNSCH PRN IV PUSH SEE LABEL COMMENTS; Start at 08:30 Family History Father and multiple brothers history of heart disease including [place]. Social History Denies any alcohol, tobacco, or illicit drug use. Physical Exam Vital Signs Vital Signs Date Time Temp Pulse Resp B/P (MAP) Pulse Ox O2 Delivery O2 Flow Rate FiO2 11/25/17 11:31 11/25/17 08:23 97.5 11/25/17 07:13 73 16 97/63 (74) 95 Room Air 11/25/17 06:45 98 Room Air 11/25/17 06:28 64 17 101/72 (82) 96 Physical Exam GENERAL: This is a well-nourished, well-developed patient, in no apparent distress. SKIN: No rashes, ecchymoses or lesions. Cool and dry. HEAD: Atraumatic. Normocephalic. No temporal or scalp tenderness. EYES: Pupils equal round and reactive. Extraocular motions intact. No scleral icterus. No injection or drainage. ENT: Nose without bleeding, purulent drainage or septal hematoma. Throat without erythema, tonsillar hypertrophy or exudate. Uvula midline. Airway patent. NECK: Trachea midline. No JVD or lymphadenopathy. Supple, nontender, no meningeal signs. CARDIOVASCULAR: Regular rate and rhythm without murmurs, gallops, or rubs. RESPIRATORY: Clear to auscultation. Breath sounds equal bilaterally. No wheezes , rales, or rhonchi. GASTROINTESTINAL: Abdomen soft, non-tender, nondistended. No hepato-splenomegaly , or palpable masses. No guarding. MUSCULOSKELETAL: Extremities without clubbing, cyanosis, or edema. No joint tenderness, effusion, or edema noted. No calf tenderness. Negative Homans sign bilaterally. NEUROLOGICAL: Awake and alert. Cranial nerves II through XII intact. Motor and sensory grossly within normal limits. Five out of 5 muscle strength in all muscle groups. Normal speech. Laboratory Laboratory Tests Test 11/25/17 06:30 11/25/17 11:10 White Blood Count 5.8 Red Blood Count 4.02 Hemoglobin 12.4 Hematocrit 35.6 Mean Corpuscular Volume 88.8 Mean Corpuscular Hemoglobin 30.8 Mean Corpuscular Hemoglobin Concent 34.7 Red Cell Distribution Width 13.0 Platelet Count 260 Mean Platelet Volume 9.0 Neutrophils (%) (Auto) 68.8 Lymphocytes (%) (Auto) 19.9 Monocytes (%) (Auto) 8.0 Eosinophils (%) (Auto) 2.8 Basophils (%) (Auto) 0.5 Neutrophils # (Auto) 4.0 Lymphocytes # (Auto) 1.2 Monocytes # (Auto) 0.5 Eosinophils # (Auto) 0.2 Basophils # (Auto) 0.0 CBC Comment DIFF FINAL Differential Comment Blood Urea Nitrogen 18 Creatinine 1.23 Random Glucose 89 Total Protein 6.7 Albumin 3.3 Calcium Level 8.2 Alkaline Phosphatase 84 Aspartate Amino Transf (AST/SGOT) 24 Alanine Aminotransferase (ALT/SGPT) 17 Total Bilirubin 0.2 Sodium Level 140 Potassium Level 3.9 Chloride Level 108 Carbon Dioxide Level 27.5 Anion Gap 5 Estimat Glomerular Filtration Rate 62 Troponin I LESS THAN 0.02 Result Diagram: 11/25/17 0630 11/25/17 0630 Imaging Last Impressions Head CT 11/25/17 0000 Signed Impressions: Service Date/Time: Saturday, November 25, 2017 06:45 - CONCLUSION: No bleed or other acute intracranial abnormality. Chronic ventriculomegaly unchanged. John Graf MD Cervical Spine CT 11/25/17 0000 Signed Impressions: Service Date/Time: Saturday, November 25, 2017 06:45 - CONCLUSION: Intact cervical spine. Degenerative changes as above. John Graf MD Caprini VTE Risk Assessment Caprini VTE Risk Assessment: Mod/High Risk (score >= 2) Caprini Risk Assessment Model Point Value = 1 Point Value = 2 Point Value = 3 Point Value = 5 Age 41-60 Minor surgery BMI > 25 kg/m2 Swollen legs Varicose veins or History of unexplained or recurrent spontaneous Oral contraceptives or hormone replacement Sepsis (< 1 month) Serious lung disease, including pneumonia (< 1 month) Abnormal pulmonary function Acute myocardial infarction Congestive heart failure (< 1 month) History of inflammatory bowel disease Medical patient at bed rest Age 61-74 Arthroscopic surgery Major open surgery (> 45 min) Laparoscopic surgery (> 45 min) Malignancy Confined to bed (> 72 hours) Immobilizing plaster cast Central venous access Age >= 75 History of VTE Family history of VTE Factor V Leiden Prothrombin [id number] Lupus anticoagulant Anticardiolipin antibodies Elevated serum homocysteine Heparin-induced thrombocytopenia Other congenital or acquired thrombophilia Stroke (< 1 month) Elective arthroplasty Hip, pelvis, or leg fracture Acute spinal cord injury (< 1 month) Prophylaxis Regimen Total Risk Factor Score Risk Level Prophylaxis Regimen 0-1 Low Early ambulation 2 Moderate Order ONE of the following: *Sequential Compression Device (SCD) *Heparin 5000 units SQ BID 3-4 Higher Order ONE of the following medications: *Heparin 5000 units SQ TID *Enoxaparin/Lovenox 40 mg SQ daily (WT < 150 kg, CrCl > 30 mL/min) *Enoxaparin/Lovenox 30 mg SQ daily (WT < 150 kg, CrCl > 10-29 mL/min) *Enoxaparin/Lovenox 30 mg SQ BID (WT < 150 kg, CrCl > 30 mL/min) AND/OR *Sequential Compression Device (SCD) 5 or more Highest Order ONE of the following medications: *Heparin 5000 units SQ TID (Preferred with Epidurals) *Enoxaparin/Lovenox 40 mg SQ daily (WT < 150 kg, CrCl > 30 mL/min) *Enoxaparin/Lovenox 30 mg SQ daily (WT < 150 kg, CrCl > 10-29 mL/min) *Enoxaparin/Lovenox 30 mg SQ BID (WT < 150 kg, CrCl > 30 mL/min) AND *Sequential Compression Device (SCD) Assessment and Plan Assessment and Plan This is a 52-year-old male history of traumatic brain injury and subdural hematoma secondary to fall and history of multiple falls throughout his lifetime who presented with multiple falls and questionable altered mental status Syncope resulting in multiple falls -Patient has a history of multiple fall. From the medical history and clinical exam sounds like patient had a vasovagal episode. Labs reviewed all relatively normal. CT scan of the brain negative for any acute process. Will monitor over telemetry, get a 2D echo, carotid ultrasound, EEG, and MRI of the brain. Per protocol and need to consult neurologist if MRI is to obtain since patient has a ACETALDEHYDE CONVERTER OPERATOR shunt. Will place consult. -We will consult PT. Questionable intermittent in delirium -At the moment patient is asymptomatic. Patient has been having these episodes intermittently per patient's . Requested to see psychiatrist. He does have a history of schizophrenia. Will consult psychiatrist. Schizophrenia/PBA/GERD GERD/normal pressure hydrocephalus status post ACETALDEHYDE CONVERTER OPERATOR shunt placement -Continue with home medication. DVT prophylaxis -SCDs. Per patient's he is not allowed to be on any blood thinners Code Status full Discussed Condition With patient and his Payton Lugo MD Nov 25, 2017 12:14
[2017-11-25] MEDS: SODIUM CHLOR 0.45% 1000 ML INJ 1,000 ML IV SCH ×2 (12:55→21:36)
[2017-11-25] MEDS: SODIUM CHLORIDE 0.9% FLUSH 10 ML FLUSH IV FLUSH SCH ×2 (12:56→21:00)
--- NOTE | 2017-11-25 17:41 | MB ---
cc: ARIANE HILL M.D. DATE OF CONSULTATION: 11/25/2017. REASON FOR CONSULTATION: Altered mental status and falls. HISTORY OF PRESENT ILLNESS: This is a 52-year-old seen in neurological consultation in regards to altered mental status and falls. This patient sustained a traumatic brain injury years ago. I do not have the specific date on that, but he apparently sustained a subdural hematoma secondary to a fall and was treated for that including a ventriculoperitoneal shunt. He has had some recurrent falls and lately he has been having some delusional thoughts. He fell three times, and the apparently witnessed one. He thinks he might have lost consciousness in one fall. This happened today in the house, and he was brought to the hospital. A number of studies included CT head, CT cervical spine, carotid ultrasound showed nothing acute. Both CT head and MRI brain showed right ventricular shunt which appears to be stable in regards to the ventriculomegaly. The patient states that he takes lamotrigine 25 milligrams for a total of three tablets three times a day. He thinks his last seizure was in 2013. MEDICATIONS: His list of medications also includes: 1. Baclofen, which he had stated to me. 2. Nuedexta. 3. Alendronate. 4. Montelukast. 5. Primidone 50 milligrams at bedtime. 6. Haldol 5 milligrams daily. 7. Benztropine 1 milligram q. 12. 8. Gabapentin 400 milligrams three times a day. SOCIAL HISTORY: No alcohol. No smoking. He lives with his . PHYSICAL EXAMINATION: On exam, he was awake, alert, anxious and he was oriented and provided information that seemed to be compatible with the information I saw in the history and physical et cetera. He has fairly good strength throughout but has difficulty with fine finger coordination bilaterally. There may be a slight tower director weakness on the left and there is slight left distal lower extremity weakness as well. The reflexes were brisk throughout and plantar responses were probably extensor bilaterally. Position sense preserved. LABORATORY DATA: CBC is unremarkable. Chemistry is essentially unremarkable as well. Lamotrigine level pending. ASSESSMENT: 1. History of a traumatic brain injury with right ventricular shunt. The ventriculomegaly appears stable. Nothing acute on the imaging studies. The patient sustained possibly three falls today and there is an apparent history of recurrent falls. I did not see him walk but he tells me he walks inside of the house without an assistive device but outside he uses a cane. He is showing some increased reflexes and probably there is diffuse increased muscle tone all related to the previous of traumatic brain injury. 2. Possible ongoing psychiatric syndrome exacerbation as well including delusions. At this point, I suggest just monitoring him for another day or so and then see how he progresses. We might need to obtain physical therapy for gait evaluation. The lamotrigine level is pending. If there is any other setback in his symptoms, we will also consider an EEG. Thank you for asking us to assist in his care. MD MAGALIS Flor/JAMESON /5:04 PM /5:29 PM
--- NOTE | 2017-11-25 18:03 | MG ---
cc: ARIANE FOY M.D. Lab No: Date: 11/25/2017 Age: Sex: M Race: REQUESTING PHYSICIAN: Dr. Luog. An EEG was obtained on this awake and drowsy patient with psychiatric disturbance and seizures. The EEG shows low amplitude beta activity diffusely. There are some alpha and theta rhythms bilaterally. At times, the left hemisphere rhythms are little bit of higher amplitude with some possible slower rhythms as well. There are some delta rhythms intermittently. Later on, the patient is asleep. No epileptiform features. Photic stimulation showed some driving response bilaterally. INTERPRETATION: Abnormal EEG because of mild bilateral slowing, left possibly more than right. The findings suggest left more than right small hemisphere structural abnormalities. No epileptiform features present. Ariane Foy MD [facility]/JAMESON /5:49 PM /5:58 PM
[2017-11-25] MEDS: GABAPENTIN 400 MG CAP PO SCH (18:31)
[2017-11-25] MEDS ORDERED: NUEDEXTA PO SCH (21:00)
[2017-11-25] MEDS: BENZTROPINE MESYLATE 2 MG TAB PO SCH (21:56)
[2017-11-25] MEDS: PRIMIDONE 50 MG TAB PO SCH (21:56)
[2017-11-25] MEDS: HALOPERIDOL 5 MG TAB PO SCH (21:56)
[2017-11-25] MEDS: BACLOFEN 20 MG TAB PO SCH (21:56)
[2017-11-25] MEDS: MONTELUKAST SODIUM 10 MG TAB PO SCH (21:56)
[2017-11-25] MEDS: lamoTRIgine 25 MG TAB PO SCH (21:57)
[2017-11-25] MEDS: ACETAMINOPHEN 325 MG TAB PO PRN (23:09)
[2017-11-26 03:16] VITALS: BP 114/68; PULSE 77; RESP 18; TEMP 98.1; O2SAT 95
[2017-11-26] MEDS: PANTOPRAZOLE SOD 40 MG DELAYED RELEASE TAB PO SCH (08:49)
[2017-11-26] MEDS: BENZTROPINE MESYLATE 2 MG TAB PO SCH ×2 (08:50→22:08)
[2017-11-26] MEDS: BACLOFEN 20 MG TAB PO SCH ×2 (08:50→22:07)
[2017-11-26] MEDS: lamoTRIgine 25 MG TAB PO SCH ×2 (08:50→22:08)
[2017-11-26] MEDS: GABAPENTIN 400 MG CAP PO SCH ×3 (08:50→16:27)
[2017-11-26] MEDS: HALOPERIDOL 5 MG TAB PO SCH ×3 (08:51→22:08)
[2017-11-26] MEDS: SODIUM CHLOR 0.45% 1000 ML INJ 1,000 ML IV SCH (08:57)
[2017-11-26] MEDS: SODIUM CHLORIDE 0.9% FLUSH 10 ML FLUSH IV FLUSH SCH ×2 (09:00→21:00)
--- NOTE | 2017-11-26 11:05 | HHI.PR ---
Subjective Remarks Follow up syncope, falls, confusion. Patient states that he feels better today and wants to go home. He wants his LANGUAGE INTERPRETER shunt checked/reset before discharge. Still with lightheadedness when sitting/standing. Objective Vitals Vital Signs Date Time Temp Pulse Resp B/P (MAP) Pulse Ox O2 Delivery O2 Flow Rate FiO2 11/26/17 03:16 98.1 77 18 114/68 (83) 95 11/25/17 23:02 98.1 84 18 117/65 (82) 95 11/25/17 19:52 98.2 83 18 113/91 (98) 97 11/25/17 14:00 98.0 65 16 107/75 (86) 99 11/25/17 11:31 I/O 11/25/17 11/25/17 11/25/17 11/26/17 11/26/17 11/26/17 07:00 15:00 23:00 07:00 15:00 23:00 Output Total 250 ml 900 ml Balance -250 ml -900 ml Output Urine Total 250 ml 900 ml # Voids 1 3 Result Diagram: 11/25/17 0630 11/25/17 0630 Imaging Last Impressions Head CT 11/25/17 0000 Signed Impressions: Service Date/Time: Saturday, November 25, 2017 06:45 - CONCLUSION: No bleed or other acute intracranial abnormality. Chronic ventriculomegaly unchanged. John Graf MD Cervical Spine CT 11/25/17 0000 Signed Impressions: Service Date/Time: Saturday, November 25, 2017 06:45 - CONCLUSION: Intact cervical spine. Degenerative changes as above. John Graf MD Carotid Artery Ultrasound 11/25/17 0000 Signed Impressions: Service Date/Time: Saturday, November 25, 2017 09:59 - CONCLUSION: No significant plaque is seen. John Ronquillo MD Brain MRI 11/25/17 0000 Signed Impressions: Service Date/Time: Saturday, November 25, 2017 11:18 - CONCLUSION: 1. Stable ventriculomegaly with a right sided ventricular shunt catheter in place. 2. No acute pathology. Ruddy Childers MD Objective Remarks General: No acute distress. Heart: Regular rate and rhythm. No murmur. Lungs: Clear to auscultation bilaterally. No wheezes, rales, or rhonchi. Breathing is nonlabored. Abdomen: Soft, nontender, nondistended. Extremities: No lower extremity edema. Psych: Alert and oriented. Procedures None Urinary Catheter: No Vascular Central Line Catheter: No A/P Assessment and Plan 1. Syncope, multiple falls: Patient still gets lightheaded with sitting/ standing. CT of the head is negative for acute process. PT eval. Appreciate neurology recommendations. 2. Questionable intermittent delirium: Mental status is at baseline at this time. Psychiatry consultation pending per patient request. Patient has history of schizophrenia. 3. History of normal pressure hydrocephalus: Neurosurgery consult for evaluation of LANGUAGE INTERPRETER shunt. 4. DVT prophylaxis: SCDs. Discharge Planning Plan for discharge home soon if cleared by neurology, neurosurgery. Isai Calhoun MD Nov 26, 2017 11:05
[2017-11-26 11:59] VITALS: BP 110/72; PULSE 85; RESP 18; TEMP 98.5; O2SAT 96
--- NOTE | 2017-11-26 13:57 | PD.CONS ---
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 Apparently he fell multiple times. No abnormal tonic-clonic movements, no tongue bitting or fecal/ urinary incontinence. Patient stated that he had LOC for a few seconds. He said that he remembers falling but does not know what happened during his fall. He denies any chest pain, shortness of breathing, palpitation, lightheadedness dizziness that occurred this fall. Patient does have a history of multiple falls. His stated that his falls are due to his brain injury. Patient's also concerned that he is hallucinating. Patient was admitted to inpatient psychiatry IN THE PAST. He denies any headaches, visual changes, nausea vomiting, focal neurological deficits. Since patient had a SUPERVISOR SOUND TECHNICIAN shunt in place a neurosurgeon is consulted. Review of Systems Constitutional: DENIES: Diaphoretic episodes, Fatigue, Fever, Weight gain, Weight loss, Chills, Dizziness, Change in appetite, Night Sweats Endocrine: DENIES: Heat/cold intolerance, Polydipsia, Polyuria, Polyphagia Eyes: DENIES: Blurred vision, Diplopia, Eye inflammation, Eye pain, Vision loss , Photosensitivity, Double Vision Ears, nose, mouth, throat: DENIES: Tinnitus, Hearing loss, Vertigo, Nasal discharge, Oral lesions, Throat pain, Hoarseness, Ear Pain, Running Nose, Epistaxis, Sinus Pain, Toothache, Odynophagia Respiratory: DENIES: Apneas, Cough, Snoring, Wheezing, Hemoptysis, Sputum production, Shortness of breath Cardiovascular: DENIES: Chest pain, Palpitations, Syncope, Dyspnea on Exertion , PND, Lower Extremity Edema, Orthopnea, Claudication Gastrointestinal: DENIES: Abdominal pain, Black stools, Bloody stools, Constipation, Diarrhea, Nausea, Vomiting, Difficulty Swallowing, Anorexia Genitourinary: DENIES: Sexual dysfunction, Urinary frequency, Urinary incontinence, Urgency, Hematuria, Dysuria, Nocturia, Penile Discharge, Testicular Pain, Testicular Swelling Musculoskeletal: DENIES: Joint pain, Muscle aches, Stiffness, Joint Swelling, Back pain, Neck pain Integumentary: DENIES: Abnormal pigmentation, Nail changes, Pruritus, Rash Hematologic/lymphatic: DENIES: Bruising, Lymphadenopathy Immunologic/allergic: DENIES: Eczema, Urticaria Neurologic: DENIES: Abnormal gait, Headache, Localized weakness, Paresthesias, Seizures, Speech Problems, Tremor, Poor Balance Psychiatric: DENIES: Anxiety, Confusion, Mood changes, Depression, Hallucinations, Agitation, Suicidal Ideation, Homicidal Ideation, Delusions Past Family Social History Allergies: Coded Allergies: chlorhexidine (Unverified Allergy, Severe, Rash, 06/03/17) Past Medical History Normal pressure hydrocephalus with SUPERVISOR SOUND TECHNICIAN shunt in place. Last saw providers in [place] about 6 months ago. Schizophrenia Traumatic brain injury secondary to fall History of subdural hematoma secondary to fall Osteoporosis Past Surgical History SUPERVISOR SOUND TECHNICIAN shunt placement Right hip surgery Multiple brain surgeries which included a SUPERVISOR SOUND TECHNICIAN shunt placement and repair Reported Medications Mysoline (Primidone) 50 Mg Tab 50 Mg PO HS 15 Days Lamictal (Lamotrigine) 25 Mg Tab 75 Mg PO Q12HR 15 Days Haloperidol 5 Mg Tab 5 Mg PO DAILY@09,15,21 15 Days [Benztropine] 1 MG Tab 2 Mg PO Q12HR 15 Days Neurontin (Gabapentin) 400 Mg Cap 400 Mg PO TID Nuedexta 20-10 mg (Dextromethorphan HBr-Quinidine) 20 Mg-10 Mg Cap 1 Cap PO BID Baclofen 20 Mg Tab 20 Mg PO BID Omeprazole 40 Mg Cap 40 Mg PO DAILY Montelukast (Montelukast Sodium) 10 Mg Tab 10 Mg PO HS Alendronate (Alendronate Sodium) 70 Mg Tab 70 Mg PO Q7D Active Ordered Medications Current Medications Sodium Chloride (NS Flush) 2 ml UNSCH PRN IVF FLUSH AFTER USING IV ACCESS Last administered on 11/25/17at 07:10; Start 11/25/17 at 06:45 Metoclopramide HCl (Reglan Inj) 10 mg ONCE ONCE IV PUSH Last administered on at 07:10; Start 11/25/17 at 06:45; Stop 11/25/17 at 06:46; Status DC Sodium Chloride 1,000 ml @ 75 mls/hr [id number] IV Last administered on 08:57; Start 11/25/17 at 08:16 Sodium Chloride (NS Flush) 2 ml UNSCH PRN IV FLUSH FLUSH AFTER USING IV ACCESS ; Start 11/25/17 at 08:30 Sodium Chloride (NS Flush) 2 ml BID IV FLUSH Last administered on 11/25/17 12: 56; Start 11/25/17 at 09:00 Acetaminophen (Tylenol) 650 mg Q4H PRN PO TEMP > 100.4 Last administered on 23:09; Start 11/25/17 at 08:30 Ondansetron HCl (Zofran Inj) 4 mg Q6H PRN IVP NAUSEA OR VOMITING; Start at 08:30 Naloxone HCl (Narcan Inj) 0.4 mg UNSCH PRN IV PUSH SEE LABEL COMMENTS; Start at 08:30 Baclofen (Lioresal) 20 mg BID PO Last administered on 11/26/17at 08:50; Start at 21:00 Gabapentin (Neurontin) 400 mg TID PO Last administered on 11/26/17 12:07; Start 11/25/17 at 18:00 Haloperidol (Haldol) 5 mg DAILY@09,15,21 PO Last administered on 11/26/17 08: 51; Start 11/25/17 at 21:00 Lamotrigine (LaMICtal) 75 mg Q12HR PO Last administered on 11/26/17at 08:50; Start 11/25/17 at 21:00 Montelukast Sodium (Singulair) 10 mg HS PO Last administered on 11/25/17 21:56 ; Start 11/25/17 at 21:00 Primidone (Mysoline) 50 mg HS PO Last administered on 11/25/17 21:56; Start at 21:00 Patient Own Medication PT OWN MED: NUEDE... BID PO ; Start 11/25/17 at 21:00; Status Future Hold Pantoprazole Sodium (Protonix) 40 mg DAILY PO Last administered on 11/26/17at 08 :49; Start 11/26/17 at 09:00 Benztropine Mesylate (Cogentin) 2 mg Q12HR PO Last administered on 11/26/17at 08 :50; Start 11/25/17 at 21:00 Family History Father and multiple brothers history of heart disease including [place]. Social History Denies any alcohol, tobacco, or illicit drug use. Physical Exam Vital Signs Vital Signs Date Time Temp Pulse Resp B/P (MAP) Pulse Ox O2 Delivery O2 Flow Rate FiO2 11/26/17 11:59 98.5 85 18 110/72 (85) 96 11/26/17 03:16 98.1 77 18 114/68 (83) 95 11/25/17 23:02 98.1 84 18 117/65 (82) 95 11/25/17 19:52 98.2 83 18 113/91 (98) 97 11/25/17 14:00 98.0 65 16 107/75 (86) 99 Physical Exam GENERAL: This is a well-nourished, well-developed patient, in no apparent distress. SKIN: No rashes, ecchymoses or lesions. Cool and dry. HEAD: Atraumatic. Normocephalic. No temporal or scalp tenderness. NECK: Trachea midline. No JVD or lymphadenopathy. Supple, nontender, no meningeal signs. CARDIOVASCULAR: Regular rate and rhythm without murmurs, gallops, or rubs. RESPIRATORY: Clear to auscultation. Breath sounds equal bilaterally. No wheezes , rales, or rhonchi. GASTROINTESTINAL: Abdomen soft, non-tender, nondistended. No hepato-splenomegaly , or palpable masses. No guarding. MUSCULOSKELETAL: Extremities without clubbing, cyanosis, or edema. No joint tenderness, effusion, or edema noted. No calf tenderness. Negative Homans sign bilaterally. Mr Cintron is alert, awake and oriented to time, place and person. Speech is fluent. Cranial nerve examination: pupils to be equal, round and reactive to light. Extra-ocular movements are intact. Facial motor and sensory function are normal and symmetrical. Gross hearing appears intact. Sternocleidomastoid and trapezius muscles are symmetrical. Other cranial nerves are intact. Neck is soft and supple with a good range of motion without pain. Muscle strength is normal in all muscle groups of both upper and lower extremities. Sensory examination is intact to light touch and pin prick in both the upper and lower extremities. Deep tendon reflexes are symmetrical in both upper and lower extremities. There is a bilateral plantar flexion response. Cerebellar examination is unremarkable, without deficits. Result Diagram: 11/25/1762911/25/17629 Imaging Last [address] 11/25/17 0000 Signed Impressions: Service Date/Time: Saturday, November 25, 2017 06:45 - CONCLUSION: No bleed or other acute intracranial abnormality. Chronic ventriculomegaly unchanged. John Graf MD Cervical Spine CT 11/25/17 Signed Impressions: Service Date/Time: Saturday, November 25, 2017 06:45 - CONCLUSION: Intact cervical spine. Degenerative changes as above. John Graf MD Carotid Artery Ultrasound 11/25/17 Signed Impressions: Service Date/Time: Saturday, November 25, 2017 09:59 - CONCLUSION: No significant plaque is seen. John Ronquillo MD Brain MRI 11/25/17 Signed Impressions: Service Date/Time: Saturday, November 25, 2017 11:18 - CONCLUSION: 1. Stable ventriculomegaly with a right sided ventricular shunt catheter in place. 2. No acute pathology. Ruddy Childers MD Assessment and Plan Assessment and Plan Caprini VTE Risk Assessment Caprini VTE Risk Assessment Caprini VTE Risk Assessment: Mod/High Risk (score >= 2) Caprini Risk Assessment Model Point Value = 1 Point Value = 2 Point Value = 3 Point Value = 5 Age 41-60 Minor surgery BMI > 25 kg/m2 Swollen legs Varicose veins or History of unexplained or recurrent spontaneous Oral contraceptives or hormone replacement Sepsis (< 1 month) Serious lung disease, including pneumonia (< 1 month) Abnormal pulmonary function Acute myocardial infarction Congestive heart failure (< 1 month) History of inflammatory bowel disease Medical patient at bed rest Age 61-74 Arthroscopic surgery Major open surgery (> 45 min) Laparoscopic surgery (> 45 min) Malignancy Confined to bed (> 72 hours) Immobilizing plaster cast Central venous access Age >= 75 History of VTE Family history of VTE Factor V Leiden Prothrombin [id number] Lupus anticoagulant Anticardiolipin antibodies Elevated serum homocysteine Heparin-induced thrombocytopenia Other congenital or acquired thrombophilia Stroke (< 1 month) Elective arthroplasty Hip, pelvis, or leg fracture Acute spinal cord injury (< 1 month) Prophylaxis Regimen Total Risk Factor Score Risk Level Prophylaxis Regimen 0-1 Low Early ambulation 2 Moderate Order ONE of the following: *Sequential Compression Device (SCD) *Heparin 5000 units SQ BID 3-4 Higher Order ONE of the following medications: *Heparin 5000 units SQ TID *Enoxaparin/Lovenox 40 mg SQ daily (WT < 150 kg, CrCl > 30 mL/min) *Enoxaparin/Lovenox 30 mg SQ daily (WT < 150 kg, CrCl > 10-29 mL/min) *Enoxaparin/Lovenox 30 mg SQ BID (WT < 150 kg, CrCl > 30 mL/min) AND/OR *Sequential Compression Device (SCD) 5 or more Highest Order ONE of the following medications: *Heparin 5000 units SQ TID (Preferred with Epidurals) *Enoxaparin/Lovenox 40 mg SQ daily (WT < 150 kg, CrCl > 30 mL/min) *Enoxaparin/Lovenox 30 mg SQ daily (WT < 150 kg, CrCl > 10-29 mL/min) *Enoxaparin/Lovenox 30 mg SQ BID (WT < 150 kg, CrCl > 30 mL/min) AND *Sequential Compression Device (SCD) Attending Statement This is a 52-year-old male history of traumatic brain injury and subdural hematoma secondary to fall and history of multiple falls throughout his lifetime who presented with multiple falls I reviewed his radiological studies Head CT 11/25/17 0000 Signed Impressions: Service Date/Time: Saturday, November 25, 2017 06:45 - CONCLUSION: No bleed or other acute intracranial abnormality. Chronic ventriculomegaly unchanged. John Graf MD Cervical Spine CT 11/25/17 0000 Signed Impressions: Service Date/Time: Saturday, November 25, 2017 06:45 - CONCLUSION: Intact cervical spine. Degenerative changes as above. John Graf MD Carotid Artery Ultrasound 11/25/17 0000 Signed Impressions: Service Date/Time: Saturday, November 25, 2017 09:59 - CONCLUSION: No significant plaque is seen. John Ronquillo MD Brain MRI 11/25/17 0000 Signed Impressions: Service Date/Time: Saturday, November 25, 2017 11:18 - CONCLUSION: 1. Stable ventriculomegaly with a right sided ventricular shunt catheter in place. 2. No acute pathology. Ruddy Childers MD He has a SUPERVISOR SOUND TECHNICIAN shunt. Recommend shunt series to assess shunt Syncope resulting in multiple falls He has a history of multiple fall. Possible vasovagal episode. Intermittent in delirium. Not related to his shunt. At the moment asymptomatic. Patient has been having these episodes intermittently per patient's . Requested to see psychiatrist. He does have a history of schizophrenia. Schizophrenia. Continue with home medication. Protonix for stress ulcer prophylaxis Deshawn yin and SCD's for DVT prophylaxis Mukesh Botello MD Nov 26, 2017 13:57
--- NOTE | 2017-11-26 14:01 | PD.PSY.CON ---
Provisional Diagnosis Admission Date Nov 25, 2017 at 08:20 Pope I. Chronic schizophrenia Pope II. 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 Patient stated that he fell 3 times yesterday's morning when going to the bathroom. His stated that she only witness one fall where she saw his eyes rolled back. No abnormal movements or fecal/urinary incontinence. Patient stated that he had LOC for a few seconds. He said that he remembers falling but does not know what happened during his fall. He denies any chest pain, shortness of breathing, palpitation , lightheadedness dizziness that occurred this fall. Patient does have a history of multiple falls. His stated that his falls are due to his brain injury. Patient's also concerned that he is hallucinating. She said for the past month he has been delusional. He would think that he spoke to certain relatives which she did not. She also stated that a couple days ago he took money at the pain to get to the bank because he thought he had $1 million in the bank. Consulted to psychiatry to address potential psychosis. Brain CT is negative. Chart was reviewed. On psychiatric evaluation the patient is calm, cooperative and pleasant. He immediately recognized me from his previous hospitalization in [place] last year. The patient reports good mood, he says that he feels fine, denies depressive symptoms. He is a smiling, and displays good sense of humor and good spirit. His is at bedside. Patient says that at time he has auditory hallucinations of voices "telling me to do the right things" he denies that the voices are commanding type. The patient denies suicidal and homicidal ideation, he denies visual and auditory hallucinations at this moment. The patient is fully oriented 3, no attention deficit, no fluctuation of consciousness right now. MMS is 2730. Patient has been compliant with his psychotropics and psychiatric follow-up. Patient is future oriented, logical, coherent and relevant during this evaluation. His expresses the concern of episodic confusion and disorientation, but no agitation or aggressive behavior. Review of Systems Constitutional: DENIES: Diaphoretic episodes, Fatigue, Fever, Weight gain, Weight loss, Chills, Dizziness, Change in appetite, Night Sweats Endocrine: DENIES: Heat/cold intolerance, Polydipsia, Polyuria, Polyphagia Eyes: DENIES: Blurred vision, Diplopia, Eye inflammation, Eye pain, Vision loss , Photosensitivity, Double Vision Ears, nose, mouth, throat: DENIES: Tinnitus, Hearing loss, Vertigo, Nasal discharge, Oral lesions, Throat pain, Hoarseness, Ear Pain, Running Nose, Epistaxis, Sinus Pain, Toothache, Odynophagia Respiratory: DENIES: Apneas, Cough, Snoring, Wheezing, Hemoptysis, Sputum production, Shortness of breath Cardiovascular: DENIES: Chest pain, Palpitations, Syncope, Dyspnea on Exertion , PND, Lower Extremity Edema, Orthopnea, Claudication Gastrointestinal: DENIES: Abdominal pain, Black stools, Bloody stools, Constipation, Diarrhea, Nausea, Vomiting, Difficulty Swallowing, Anorexia Genitourinary: DENIES: Sexual dysfunction, Urinary frequency, Urinary incontinence, Urgency, Hematuria, Dysuria, Nocturia, Penile Discharge, Testicular Pain, Testicular Swelling Musculoskeletal: DENIES: Joint pain, Muscle aches, Stiffness, Joint Swelling, Back pain, Neck pain Integumentary: DENIES: Abnormal pigmentation, Nail changes, Pruritus, Rash Hematologic/lymphatic: DENIES: Bruising, Lymphadenopathy Immunologic/allergic: DENIES: Eczema, Urticaria Neurologic: DENIES: Abnormal gait, Headache, Localized weakness, Paresthesias, Seizures, Speech Problems, Tremor, Poor Balance Psychiatric: DENIES: Anxiety, Confusion, Mood changes, Depression, Hallucinations, Agitation, Suicidal Ideation, Homicidal Ideation, Delusions Past Family Social History Coded Allergies: chlorhexidine (Unverified Allergy, Severe, Rash, 06/03/17) Active Scripts Primidone (Mysoline) 50 Mg Tab, 50 MG PO HS for Tremor for 15 Days, TAB 1 Refill Prov:Rich Givens MD 05/07/17 Lamotrigine (Lamictal) 25 Mg Tab, 75 MG PO Q12HR for Seizure for 15 Days, TAB 1 Refill Prov:Rich Givens MD 05/07/17 Haloperidol (Haloperidol) 5 Mg Tab, 5 MG PO DAILY@09,15,21 for Mental Health for 15 Days, TAB 1 Refill Prov:Rich Givens MD 05/07/17 [Benztropine Mesylate] 1 MG TAB No Conflict Check, 2 MG PO Q12HR for Side effect management for 15 Days, TAB 1 Refill Prov:Rich Givnes MD 05/07/17 Gabapentin (Neurontin) 400 Mg Cap, 400 MG PO TID for health, #90 CAP Prov:Angel Luis Cleaning MD 02/27/17 Reported Medications Dextromethorphan HBr-Quinidine (Nuedexta 20-10 mg) 20 Mg-10 Mg Cap, 1 CAP PO BID for Pseudobulbar Affect, #60 CAP 0 Refills 11/25/17 Baclofen (Baclofen) 20 Mg Tab, 20 MG PO BID for Muscle Spasm, TAB 0 Refills 06/03/17 Omeprazole (Omeprazole) 40 Mg Cap, 40 MG PO DAILY, #30 CAP 0 Refills 02/15/17 Montelukast (Montelukast) 10 Mg Tab, 10 MG PO HS, #30 TAB 0 Refills 02/15/17 Alendronate (Alendronate) 70 Mg Tab, 70 MG PO Q7D for Osteporosis Treatment, #4 TAB 0 Refills 02/15/17 Discontinued Scripts Azithromycin (Zithromax Z-Yaya) 250 Mg Dspk, 250 MG PO DIRECTED for Infection , #1 DSPK 0 Refills 500 MG (2 tabs) day 1, then 1 tab days 2-5. Prov:Isai Lee MD 06/03/17 Current Medications Medications (Trade) Dose Ordered Sig/Kang Route Start Time Stop Time Status Last Admin (NS Flush) 2 ml UNSCH PRN IVF 11/25/17 06:45 11/25/17 07:10 Sodium Chloride 1,000 ml @ 75 mls/hr [id number] IV 11/25/17 08:16 11/26/17 08:57 (NS Flush) 2 ml UNSCH PRN IV FLUSH 11/25/17 08:30 (NS Flush) 2 ml BID IV FLUSH 11/25/17 09:00 11/25/17 12:56 (Tylenol) 650 mg Q4H PRN PO 11/25/17 08:30 11/25/17 23:09 (Zofran Inj) 4 mg Q6H PRN IVP 11/25/17 08:30 (Narcan Inj) 0.4 mg UNSCH PRN IV PUSH 11/25/17 08:30 (Lioresal) 20 mg BID PO 11/25/17 21:00 11/26/17 08:50 (Neurontin) 400 mg TID PO 11/25/17 18:00 11/26/17 12:07 (Haldol) 5 mg DAILY@,,21 PO 11/25/17 21:00 11/26/17 08:51 (LaMICtal) 75 mg Q12HR PO 11/25/17 21:00 11/26/17 08:50 (Singulair) 10 mg HS PO 11/25/17 21:00 11/25/17 21:56 (Mysoline) 50 mg HS PO 11/25/17 21:00 11/25/17 21:56 Patient Own Medication PT OWN MED: NUEDE... BID PO 11/25/17 21:00 Future Hold (Protonix) 40 mg DAILY PO 11/26/17 09:00 11/26/17 08:49 (Cogentin) 2 mg Q12HR PO 11/25/17 21:00 11/26/17 08:50 Family Psych History No family psychiatric history Social History Patient was born and raised in [place], he lives in [place] with , he has 2 kids, his college graduate, unemployed at this moment, on Stereotypes Patient's Strengths (min. 2) Good family support Physical Exam No tremors, no EPS, no withdrawal symptoms, Vital Signs Vital Signs Date Time Temp Pulse Resp B/P (MAP) Pulse Ox O2 Delivery O2 Flow Rate FiO2 11/26/17 11:59 98.5 85 18 110/72 (85) 96 11/25/17 07:13 Room Air Mental Status Examination Appearance: Appropriate Consciousness: Alert Orientation: x4 Motor Activity: Normal gait Speech: Unremarkable Language: Adequate Fund of Knowledge: Adequate Attention and Concentration: Adequate Memory: Unremarkable Mood: Appropriate Affect: Appropriate Thought Process & Associations: Intact Thought Content: Appropriate Hallucination Type: None Delusion Type: None Suicidal Ideation: No Suicidal Plan: No Suicidal Intention: No Homicidal Ideation: No Homicidal Plan: No Homicidal Intention: No Insight: Adequate Judgment: Adequate Assessment & Plan Problem List: (1) Psychosis ICD Codes: F29 - Unspecified psychosis not due to a substance or known physiological condition Status: Acute Assessment & Plan: Patient reports episodic psychosis, confusion, benign, non- commanding type, auditory hallucinations, but denies visual or auditory hallucinations at this moment. Patient denies depressive symptoms, denies anxiety, denies andrews, he is future oriented, denies suicidal and homicidal ideation, denies visual and auditory hallucinations at this rate moment. The patient is oriented 3, Mini-Mental is 27 of 30. Patient doesn't present any acute psychiatric symptoms that requires psychiatric hospitalization or immediate attention at this moment. I have educated the patient and his about communicating with outpatient psychiatrist about the benefits of exploring other alternatives in the antipsychotic expectrum of medication, this patient has history of EPS with Haldol. But, she can continue Haldol 5 mg twice a day, benztropine 1 mg twice a day. Brief supportive psychotherapy provided. Assessment & Plan Estimated LOS: Angel Luis Callahan MD Nov 26, 2017 14:01
--- NOTE | 2017-11-26 15:43 | ECHRPT ---
Indication: CVA/TIA CONCLUSIONS The left ventricular systolic function is normal with an estimated ejection fraction in the range of 55-60%. Trace aortic valve regurgitation. There is mild to moderate tricuspid valve regurgitation. BP: 114 / 68 HR: 77 Rhythm: Sinus MEASUREMENTS (Male / Female) Normal Values Technical Quality:Good 2D ECHO LV Diastolic Diameter PLAX 4.2 cm 4.2 - 5.9 / 3.9 - 5.3 cm LV Systolic Diameter PLAX 3.1 cm IVS Diastolic Thickness 1.1 cm 0.6 - 1.0 / 0.6 - 0.9 cm LVPW Diastolic Thickness 1.1 cm 0.6 - 1.0 / 0.6 - 0.9 cm LV Relative Wall Thickness 0.5 RV Internal Dim ED PLAX 2.5 cm LVOT Diameter 2.1 cm LA Systolic Diameter LX 3.2 cm 3.0 - 4.0 / 2.7 - 3.8 cm LV Ejection Fraction MOD 4C 59.0 % LV Cardiac Index MOD 4C 1460.3 cm/minm LV Ejection Fraction 4C AL 59.7 % LV Cardiac Index 4C AL 1530.0 cm/minm M-MODE Aortic Root Diameter MM 2.7 cm LA Systolic Diameter MM 2.9 cm LA Ao Ratio MM 1.1 AV Cusp Separation MM 2.2 cm DOPPLER AV Peak Velocity 113.0 cm/s AV Peak Gradient 5.1 mmHg AI Peak Velocity 205.0 cm/s AI Peak Gradient 16.8 mmHg AI Pressure Half Time 593.5 ms LVOT Peak Velocity 107.0 cm/s LVOT Peak Gradient 4.6 mmHg AV Area Cont Eq pk 3.3 cm MV Area PHT 3.9 cm Mitral E Point Velocity 64.7 cm/s Mitral A Point Velocity 61.2 cm/s Mitral E to A Ratio 1.1 LV E' Lateral Velocity 9.0 cm/s Mitral E to LV E' Lateral Ratio 7.2 LV E' Septal Velocity 7.1 cm/s Mitral E to LV E' Septal Ratio 9.1 TR Peak Velocity 228.0 cm/s TR Peak Gradient 20.8 mmHg Right Atrial Pressure 10.0 mmHg Pulmonary Artery Systolic Pressu 30.8 mmHg Right Ventricular Systolic Press 30.8 mmHg PV Peak Velocity 77.4 cm/s PV Peak Gradient 2.4 mmHg FINDINGS LEFT VENTRICLE The left ventricular systolic function is normal with an estimated ejection fraction in the range of 55-60%. Normal left ventricular size. Wall thickness is normal. No regional wall motion abnormalities are present. RIGHT VENTRICLE Normal right ventricular size and systolic function. LEFT ATRIUM The left atrial size is normal. RIGHT ATRIUM The right atrial size is normal. ATRIAL SEPTUM Normal atrial septal thickness AORTA The aortic root and proximal ascending aorta are normal in size on limited imaging. MITRAL VALVE Structurally normal mitral valve. No mitral valve stenosis or regurgitation. AORTIC VALVE Trileaflet aortic valve. Trace aortic valve regurgitation. No aortic valve stenosis. TRICUSPID VALVE Structurally normal tricuspid valve. There is mild to moderate tricuspid valve regurgitation. The estimated pulmonary arterial pressure is 30.8 mmHg. PULMONARY VALVE No pulmonary valve regurgitation or stenosis. VESSELS The inferior vena cava is normal in size. PERICARDIUM No pericardial effusion. Anthony Milton DO (Electronically Signed) Final Date:26 November 2017 15:42
--- NOTE | 2017-11-26 15:50 | RADRPT ---
EXAM DATE/TIME: 11/26/2017 14:54 [facility] COMPARISON: SHUNT SERIES, November 26, 2017, 14:55. INDICATIONS : Evaluate shunt valve setting. MEDICAL HISTORY : TBI. SURGICAL HISTORY : Cholecystectomy. Programable PLATER HELPER shunt. ENCOUNTER: Initial ACUITY: 1 day PAIN SCORE: 0/10 LOCATION: skull. FINDINGS: Single spot image of the skull was obtained to evaluate the shunt setting. By report, this patient's shunt is a Metronic Strata. Correlating with online resource ([place] Journal of Neuroradiology Aug ust 2010. 31 [phone]) indicates a setting of P/L 2.5. CONCLUSION: Assuming this shunt is a [employer] Strata PLATER HELPER shunt, the tube setting indicates P/L 2.5. Suggest corre lation with the clinical history. John Olivia MD on November 26, 2017 at 15:41 Board Certified Radiologist. This report was verified electronically.
--- NOTE | 2017-11-26 15:52 | RADRPT ---
EXAM DATE/TIME: 11/26/2017 14:55 [facility] COMPARISON: No previous studies available for comparison. INDICATIONS : Shunt patency, possible obstruction. MEDICAL HISTORY : TBI. SURGICAL HISTORY : Cholecystectomy. Programable LOW PRESSURE KETTLE OPERATOR shunt. ENCOUNTER: Initial ACUITY: 1 day PAIN SCORE: 0/10 LOCATION: abdomen. FINDINGS: 6 views of the skull, neck, chest, and abdomen demonstrate a right sided LOW PRESSURE KETTLE OPERATOR shunt in present. The dis rodrigo tip of the shunt extends beyond the midline. The shunt tubing is intact over the neck, chest, and abdomen. The shunt tubing is looped overlying the stomach and terminates in the right lower quadrant . No abnormal mass effect is visualized at the tip of the catheter. The visualized surrounding structures demonstrate no acute finding. Cholecystectomy clips are present . There has been prior right pelvis ORIF. CONCLUSION: Shunt tubing is intact. John Olivia MD on November 26, 2017 at 15:49 Board Certified Radiologist. This report was verified electronically.
[2017-11-26 16:17] VITALS: BP 112/70; PULSE 82; RESP 16; TEMP 97.7; O2SAT 98
[2017-11-26] MEDS: ACETAMINOPHEN 325 MG TAB PO PRN (16:27)
[2017-11-26 20:00] VITALS: BP 98/70; PULSE 92; RESP 16; TEMP 99.7; O2SAT 97
--- NOTE | 2017-11-26 21:54 | RADRPT ---
EXAM DATE/TIME: 11/26/2017 20:59 [facility] COMPARISON: SKULL (1VW), November 26, 2017, 14:54. INDICATIONS : Re-evaluate shunt setting. MEDICAL HISTORY : TBI. SURGICAL HISTORY : None. ENCOUNTER: Initial ACUITY: 1 day PAIN SCORE: 0/10 LOCATION: skull. FINDINGS: Single spot image of the skull is obtained to evaluate shunt setting. Per previous report this is a M edtronic strata COMPENSATION EXPERT shunt. Correlating with online resource current setting is P/L 1.0 CONCLUSION: Assuming this is a Medtronic strata COMPENSATION EXPERT shunt, current setting is P/L 1.0 Arthur Lucas MD on November 26, 2017 at 21:45 Board Certified Radiologist. This report was verified electronically.
[2017-11-26] MEDS: MONTELUKAST SODIUM 10 MG TAB PO SCH (22:07)
[2017-11-26] MEDS: PRIMIDONE 50 MG TAB PO SCH (22:07)
[2017-11-27 02:05] VITALS: PULSE 79
[2017-11-27 04:40] VITALS: BP 112/71; PULSE 79; RESP 14; TEMP 98.6; O2SAT 98
[2017-11-27] MEDS: SODIUM CHLOR 0.45% 1000 ML INJ 1,000 ML IV SCH (05:50)
[2017-11-27] MEDS: BACLOFEN 20 MG TAB PO SCH (07:36)
[2017-11-27] MEDS: lamoTRIgine 25 MG TAB PO SCH (07:36)
[2017-11-27] MEDS: HALOPERIDOL 5 MG TAB PO SCH (07:37)
[2017-11-27] MEDS: PRIMIDONE 50 MG TAB PO SCH (07:37)
[2017-11-27] MEDS: GABAPENTIN 400 MG CAP PO SCH (07:37)
[2017-11-27] MEDS: PANTOPRAZOLE SOD 40 MG DELAYED RELEASE TAB PO SCH (07:37)
[2017-11-27] MEDS: BENZTROPINE MESYLATE 2 MG TAB PO SCH (07:37)
[2017-11-27] MEDS: SODIUM CHLORIDE 0.9% FLUSH 10 ML FLUSH IV FLUSH SCH (07:37)
[2017-11-27 09:02] VITALS: BP 92/57; PULSE 90; RESP 16; TEMP 98.4; O2SAT 96
--- NOTE | 2017-11-27 09:55 | HHI.DS ---
Discharge Summary Admission Date Nov 25, 2017 at 08:20 Discharge Date: Nov 27, 2017 Admitting Diagnosis Altered mental status (1) Encephalopathy ICD Code: G93.40 - Encephalopathy, unspecified (2) Gait disturbance ICD Code: R26.9 - Unspecified abnormalities of gait and mobility (3) Falls ICD Code: W19.XXXA - Unspecified fall, initial encounter Procedures None Brief History - From Admission This is a 52-year-old male past medical history of schizophrenia, traumatic brain injury secondary to fall, history of subdural hematoma secondary to fall, status post HOSPITAL TELEVISION RENTAL CLERK shunt placement due to normal pressure hydrocephalus who presented with multiple falls and questionable altered mental status. Patient stated that he fell 3 times this morning when going to the bathroom. His stated that she only witness one fall where she saw his eyes rolled back. No abnormal movements or fecal/urinary incontinence. Patient stated that he had LOC for a few seconds. He said that he remembers falling but does not know what happened during his fall. He denies any chest pain, shortness of breathing , palpitation, lightheadedness dizziness that occurred this fall. Patient does have a history of multiple falls. His stated that his falls are due to his brain injury. Patient's also concerned that he is hallucinating. She said for the past month he has been delusional. He would think that he spoke to certain relatives which she did not. She also stated that a couple days [facility] because he thought he had $1 million in the bank. She stated that his last episode was a few days ago. Patient was admitted to inpatient psychiatry for the exact same reason. She stated that he has been having more episodes when they moved to [place]. At the moment patient denies any auditory or visual hallucination. He is also not delusional at the moment. Patient denied any headache, visual changes, nausea vomiting, focal neurological deficits. in the ED Dr. Bowden stated that his thought patient was altered but she did not feel that patient was altered. When I saw patient he was AAO 4. He answer all my questions and follow commands appropriately. Patient's also stated that patient is being treated for PBA with Nuedexta. She stated that his neurologist started patient on this a week ago. Discussed case with patient's ER nurse who stated that since patient had a HOSPITAL TELEVISION RENTAL CLERK shunt in place that radiologist requested that a neurologist is consulted. All other review systems reviewed and negative. CBC/BMP: 11/25/17 0630 11/25/17 0630 Significant Findings Laboratory Tests Test 11/25/17 06:30 11/25/17 11:10 Red Blood Count 4.02 MIL/MM3 (4.50-5.90) Hemoglobin 12.4 GM/DL (13.0-17.0) Hematocrit 35.6 % (39.0-51.0) Albumin 3.3 GM/DL (3.4-5.0) Calcium Level 8.2 MG/DL (8.5-10.1) Chloride Level 108 MEQ/L (98-107) Estimat Glomerular Filtration Rate 62 ML/MIN (>89) Troponin I LESS THAN 0.02 NG/ML Imaging Last Impressions Skull X-Ray 11/26/17 0000 Signed Impressions: Service Date/Time: Sunday, November 26, 2017 20:59 - CONCLUSION: Assuming this is a [employer] strata HOSPITAL TELEVISION RENTAL CLERK shunt, current setting is P/L 1.0 Arthur Lucas MD Shunt Study (Imaging) 11/26/17 0000 Signed Impressions: Service Date/Time: Sunday, November 26, 2017 14:55 - CONCLUSION: Shunt tubing is intact. John Olivia MD Head CT 11/25/17 0000 Signed Impressions: Service Date/Time: Saturday, November 25, 2017 06:45 - CONCLUSION: No bleed or other acute intracranial abnormality. Chronic ventriculomegaly unchanged. John Graf MD Cervical Spine CT 11/25/17 0000 Signed Impressions: Service Date/Time: Saturday, November 25, 2017 06:45 - CONCLUSION: Intact cervical spine. Degenerative changes as above. John Graf MD Carotid Artery Ultrasound 11/25/17 0000 Signed Impressions: Service Date/Time: Saturday, November 25, 2017 09:59 - CONCLUSION: No significant plaque is seen. John Ronquillo MD Brain MRI 11/25/17 0000 Signed Impressions: Service Date/Time: Paul, November 25, 2017 11:18 - CONCLUSION: 1. Stable ventriculomegaly with a right sided ventricular shunt catheter in place. 2. No acute pathology. Ruddy Childers MD PE at Discharge General: No acute distress. Heart: Regular rate and rhythm. No murmur. Lungs: Clear to auscultation bilaterally. No wheezes, rales, or rhonchi. Breathing is nonlabored. Abdomen: Soft, nontender, nondistended. Extremities: No lower extremity edema. Psych: Alert and oriented. Pt update on day of discharge Patient reports he is feeling back to his normal self. Eager to go home. Hospital Course 52-year-old male admitted to the hospital for multiple falls, questionable syncope. CT of the brain was negative. Patient evaluated by physical therapy who recommended outpatient PT. Neurology evaluated the patient, he was monitored and his symptoms resolved. He was seen by neurosurgery who evaluated his shunt which was found to have normal imaging findings. Patient was also seen by psychiatry but there were no changes in his medications. Patient's symptoms resolved and deemed stable for discharge. Pt Condition on Discharge: Good Discharge Disposition: Discharge Home Discharge Time: <= 30 minutes Discharge Instructions DIET: Follow Instructions for: Heart Healthy Diet Activities you can perform: Regular-No Restrictions Continued Medications: Alendronate (Alendronate) 70 Mg Tab 70 MG PO Q7D for Osteporosis Treatment, #4 TAB 0 Refills Baclofen (Baclofen) 20 Mg Tab 20 MG PO BID for Muscle Spasm, TAB 0 Refills Gabapentin (Neurontin) 400 Mg Cap 400 MG PO TID for health, #90 CAP Haloperidol (Haloperidol) 5 Mg Tab 5 MG PO DAILY@09,15,21 for Mental Health for 15 Days, TAB 1 Refill Lamotrigine (Lamictal) 25 Mg Tab 75 MG PO Q12HR for Seizure for 15 Days, TAB 1 Refill Montelukast (Montelukast) 10 Mg Tab 10 MG PO HS, #30 TAB 0 Refills Omeprazole (Omeprazole) 40 Mg Cap 40 MG PO DAILY, #30 CAP 0 Refills Primidone (Mysoline) 50 Mg Tab 50 MG PO HS for Tremor for 15 Days, TAB 1 Refill [Benztropine] () 1 MG TAB 2 MG PO Q12HR for Side effect management for 15 Days, TAB 1 Refill Discontinued Medications: Dextromethorphan HBr-Quinidine (Nuedexta 20-10 mg) 20 Mg-10 Mg Cap 1 CAP PO BID for Pseudobulbar Affect, #60 CAP 0 Refills Norma Michel MD Nov 27, 2017 09:55
[2017-11-27 11:03] VITALS: BP 94/63; PULSE 85; RESP 16; TEMP 98.5; O2SAT 97
--- NOTE | 2017-11-28 16:55 | PD.CONS ---
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 Apparently he fell 3 times this morning when going to the bathroom. His stated that she only witness one fall where she saw his eyes rolled back. No tongue bitting. No abnormal movements or fecal/urinary incontinence. Patient stated that he had LOC for a few seconds. He said that he remembers falling but does not know what happened during his fall. He denies any chest pain, shortness of breathing, palpitation , lightheadedness dizziness that occurred this fall. He apparently has a history of multiple falls. His stated that his falls are due to his brain injury. Patient's also concerned that he is suffering hallucinations. She said for the past month he has been delusional. He denied any headache, visual changes, nausea vomiting, focal neurological deficits. He was evaluated by a neurologist. AN MRIO was done. Neurosurgery consultation was requested. speech. Laboratory Laboratory Tests Test 11/25/17 06:30 11/25/17 11:10 White Blood Count 5.8 Red Blood Count 4.02 Hemoglobin 12.4 Hematocrit 35.6 Mean Corpuscular Volume 88.8 Mean Corpuscular Hemoglobin 30.8 Mean Corpuscular Hemoglobin Concent 34.7 Red Cell Distribution Width 13.0 Platelet Count 260 Mean Platelet Volume 9.0 Neutrophils (%) (Auto) 68.8 Lymphocytes (%) (Auto) 19.9 Monocytes (%) (Auto) 8.0 Eosinophils (%) (Auto) 2.8 Basophils (%) (Auto) 0.5 Neutrophils # (Auto) 4.0 Lymphocytes # (Auto) 1.2 Monocytes # (Auto) 0.5 Eosinophils # (Auto) 0.2 Basophils # (Auto) 0.0 CBC Comment DIFF FINAL Differential Comment Blood Urea Nitrogen 18 Creatinine 1.23 Random Glucose 89 Total Protein 6.7 Albumin 3.3 Calcium Level 8.2 Alkaline Phosphatase 84 Aspartate Amino Transf (AST/SGOT) 24 Alanine Aminotransferase (ALT/SGPT) 17 Total Bilirubin 0.2 Sodium Level 140 Potassium Level 3.9 Chloride Level 108 Carbon Dioxide Level 27.5 Anion Gap 5 Estimat Glomerular Filtration Rate 62 Troponin I LESS THAN 0.02 Result Diagram: 11/25/17 0630 11/25/17 0630 Imaging Last Impressions Head CT 11/25/17 0000 Signed Impressions: Service Date/Time: Saturday, November 25, 2017 06:45 - CONCLUSION: No bleed or other acute intracranial abnormality. Chronic ventriculomegaly unchanged. John Graf MD Cervical Spine CT 11/25/17 0000 Signed Impressions: Service Date/Time: Saturday, November 25, 2017 06:45 - CONCLUSION: Intact cervical spine. Degenerative changes as above. MD William Urbano VTE Risk Assessment Yogirini VTE Risk Assessment: Mod/High Risk (score >= 2) Caprini Risk Assessment Model Point Value = 1 Point Value = 2 Point Value = 3 Point Value = 5 Age 41-60 Minor surgery BMI > 25 kg/m2 Swollen legs Varicose veins or History of unexplained or recurrent spontaneous Oral contraceptives or hormone replacement Sepsis (< 1 month) Serious lung disease, including pneumonia (< 1 month) Abnormal pulmonary function Acute myocardial infarction Congestive heart failure (< 1 month) History of inflammatory bowel disease Medical patient at bed rest Age 61-74 Arthroscopic surgery Major open surgery (> 45 min) Laparoscopic surgery (> 45 min) Malignancy Confined to bed (> 72 hours) Immobilizing plaster cast Central venous access Age >= 75 History of VTE Family history of VTE Factor V Leiden Prothrombin [id number] Lupus anticoagulant Anticardiolipin antibodies Elevated serum homocysteine Heparin-induced thrombocytopenia Other congenital or acquired thrombophilia Stroke (< 1 month) Elective arthroplasty Hip, pelvis, or leg fracture Acute spinal cord injury (< 1 month) Prophylaxis Regimen Total Risk Factor Score Risk Level Prophylaxis Regimen 0-1 Low Early ambulation 2 Moderate Order ONE of the following: *Sequential Compression Device (SCD) *Heparin 5000 units SQ BID 3-4 Higher Order ONE of the following medications: *Heparin 5000 units SQ TID *Enoxaparin/Lovenox 40 mg SQ daily (WT < 150 kg, CrCl > 30 mL/min) *Enoxaparin/Lovenox 30 mg SQ daily (WT < 150 kg, CrCl > 10-29 mL/min) *Enoxaparin/Lovenox 30 mg SQ BID (WT < 150 kg, CrCl > 30 mL/min) AND/OR *Sequential Compression Device (SCD) 5 or more Highest Order ONE of the following medications: *Heparin 5000 units SQ TID (Preferred with Epidurals) *Enoxaparin/Lovenox 40 mg SQ daily (WT < 150 kg, CrCl > 30 mL/min) *Enoxaparin/Lovenox 30 mg SQ daily (WT < 150 kg, CrCl > 10-29 mL/min) *Enoxaparin/Lovenox 30 mg SQ BID (WT < 150 kg, CrCl > 30 mL/min) AND *Sequential Compression Device (SCD) Assessment and Plan Assessment and Plan This is a 52-year-old male history of traumatic brain injury and subdural hematoma secondary to fall and history of multiple falls throughout his lifetime who presented with multiple falls and questionable altered mental status Syncope resulting in multiple falls -Patient has a history of multiple fall. From the medical history and clinical exam sounds like patient had a vasovagal episode. Labs reviewed all relatively normal. CT scan of the brain negative for any acute process. Will monitor over telemetry, get a 2D echo, carotid ultrasound, EEG, and MRI of the brain. Per protocol and need to consult neurologist if MRI is to obtain since patient has a CUP TRIMMING MACHINE OPERATOR shunt. Will place consult. -We will consult PT. Questionable intermittent in delirium -At the moment patient is asymptomatic. Patient has been having these episodes intermittently per patient's . Requested to see psychiatrist. He does have a history of schizophrenia. Will consult psychiatrist. Schizophrenia/PBA/GERD GERD/normal pressure hydrocephalus status post CUP TRIMMING MACHINE OPERATOR shunt placement -Continue with home medication. DVT prophylaxis -SCDs. Per patient's he is not allowed to be on any blood thinners Code Status full Discussed Condition With patient and his Review of Systems Constitutional: DENIES: Diaphoretic episodes, Fatigue, Fever, Weight gain, Weight loss, Chills, Dizziness, Change in appetite, Night Sweats Endocrine: DENIES: Heat/cold intolerance, Polydipsia, Polyuria, Polyphagia Eyes: DENIES: Blurred vision, Diplopia, Eye inflammation, Eye pain, Vision loss , Photosensitivity, Double Vision Ears, nose, mouth, throat: DENIES: Tinnitus, Hearing loss, Vertigo, Nasal discharge, Oral lesions, Throat pain, Hoarseness, Ear Pain, Running Nose, Epistaxis, Sinus Pain, Toothache, Odynophagia Respiratory: DENIES: Apneas, Cough, Snoring, Wheezing, Hemoptysis, Sputum production, Shortness of breath Cardiovascular: DENIES: Chest pain, Palpitations, Syncope, Dyspnea on Exertion , PND, Lower Extremity Edema, Orthopnea, Claudication Gastrointestinal: DENIES: Abdominal pain, Black stools, Bloody stools, Constipation, Diarrhea, Nausea, Vomiting, Difficulty Swallowing, Anorexia Genitourinary: DENIES: Sexual dysfunction, Urinary frequency, Urinary incontinence, Urgency, Hematuria, Dysuria, Nocturia, Penile Discharge, Testicular Pain, Testicular Swelling Musculoskeletal: DENIES: Joint pain, Muscle aches, Stiffness, Joint Swelling, Back pain, Neck pain Integumentary: COMPLAINS OF: Nail changes, DENIES: Abnormal pigmentation, Pruritus, Rash Hematologic/lymphatic: DENIES: Bruising, Lymphadenopathy Immunologic/allergic: DENIES: Eczema, Urticaria Neurologic: COMPLAINS OF: Abnormal gait, DENIES: Headache, Localized weakness, Paresthesias, Seizures, Speech Problems, Tremor, Poor Balance Psychiatric: DENIES: Anxiety, Confusion, Mood changes, Depression, Hallucinations, Agitation, Suicidal Ideation, Homicidal Ideation, Delusions Past Family Social History Allergies: Coded Allergies: chlorhexidine (Unverified Allergy, Severe, Rash, 06/03/17) Past Medical History Normal pressure hydrocephalus with CUP TRIMMING MACHINE OPERATOR shunt in place. Last saw providers in [place] about 6 months ago. Schizophrenia Traumatic brain injury secondary to fall History of subdural hematoma secondary to fall Osteoporosis PBA Past Surgical History CUP TRIMMING MACHINE OPERATOR shunt t Right hip surgery Multiple brain surgeries which included a CUP TRIMMING MACHINE OPERATOR shunt placement and repair Reported Medications Mysoline (Primidone) 50 Mg Tab 50 Mg PO HS 15 Days Lamictal (Lamotrigine) 25 Mg Tab 75 Mg PO Q12HR 15 Days Haloperidol 5 Mg Tab 5 Mg PO DAILY@09,15,21 15 Days [Benztropine] 1 MG Tab 2 Mg PO Q12HR 15 Days Neurontin (Gabapentin) 400 Mg Cap 400 Mg PO TID Nuedexta 20-10 mg (Dextromethorphan HBr-Quinidine) 20 Mg-10 Mg Cap 1 Cap PO BID Baclofen 20 Mg Tab 20 Mg PO BID Omeprazole 40 Mg Cap 40 Mg PO DAILY Montelukast (Montelukast Sodium) 10 Mg Tab 10 Mg PO HS Alendronate (Alendronate Sodium) 70 Mg Tab 70 Mg PO Q7D Active Ordered Medications Current Medications Sodium Chloride (NS Flush) 2 ml UNSCH PRN IVF FLUSH AFTER USING IV ACCESS Last administered on 11/25/17at 07:10; Start 11/25/17 at 06:45; Stop 11/27/17 at 11:03 ; Status DC Metoclopramide HCl (Reglan Inj) 10 mg ONCE ONCE IV PUSH Last administered on at 07:10; Start 11/25/17 at 06:45; Stop 11/25/17 at 06:46; Status DC Sodium Chloride 1,000 ml @ 75 mls/hr [id number] IV Last administered on at 05:50; Start 11/25/17 at 08:16; Stop 11/27/17 at 11:03; Status DC Sodium Chloride (NS Flush) 2 ml UNSCH PRN IV FLUSH FLUSH AFTER USING IV ACCESS ; Start 11/25/17 at 08:30; Stop 11/27/17 at 11:03; Status DC Sodium Chloride (NS Flush) 2 ml BID IV FLUSH Last administered on 11/27/17at 07: 37; Start 11/25/17 at 09:00; Stop 11/27/17 at 11:03; Status DC Acetaminophen (Tylenol) 650 mg Q4H PRN PO TEMP > 100.4 Last administered on at 16:27; Start 11/25/17 at 08:30; Stop 11/27/17 at 11:03; Status DC Ondansetron HCl (Zofran Inj) 4 mg Q6H PRN IVP NAUSEA OR VOMITING; Start at 08:30; Stop 11/27/17 at 11:03; Status DC Naloxone HCl (Narcan Inj) 0.4 mg UNSCH PRN IV PUSH SEE LABEL COMMENTS; Start at 08:30; Stop 11/27/17 at 11:03; Status DC Baclofen (Lioresal) 20 mg BID PO Last administered on 11/27/17at 07:36; Start at 21:00; Stop 11/27/17 at 11:03; Status DC Gabapentin (Neurontin) 400 mg TID PO Last administered on 11/27/17at 07:37; Start 11/25/17 at 18:00; Stop 11/27/17 at 11:03; Status DC Haloperidol (Haldol) 5 mg DAILY@09,15,21 PO Last administered on 11/27/17at 07: 37; Start 11/25/17 at 21:00; Stop 11/27/17 at 11:03; Status DC Lamotrigine (LaMICtal) 75 mg Q12HR PO Last administered on 11/27/17at 07:36; Start 11/25/17 at 21:00; Stop 11/27/17 at 11:03; Status DC Montelukast Sodium (Singulair) 10 mg HS PO Last administered on 11/26/17at 22:07 ; Start 11/25/17 at 21:00; Stop 11/27/17 at 11:03; Status DC Primidone (Mysoline) 50 mg HS PO Last administered on 11/27/17at 07:37; Start at 21:00; Stop 11/27/17 at 11:03; Status DC Patient Own Medication PT OWN MED: NUEDE... BID PO ; Start 11/25/17 at 21:00; Stop 11/27/17 at 11:03; Status DC Pantoprazole Sodium (Protonix) 40 mg DAILY PO Last administered on 11/27/17at 07 :37; Start 11/26/17 at 09:00; Stop 11/27/17 at 11:03; Status DC Benztropine Mesylate (Cogentin) 2 mg Q12HR PO Last administered on 11/27/17at 07 :37; Start 11/25/17 at 21:00; Stop 11/27/17 at 11:03; Status DC Family History The family history was reviewed. Father and multiple brothers history of heart disease including [place]. Social History Denies any alcohol, tobacco, or illicit drug use. Physical Exam Vital Signs GENERAL: This is a well-nourished, well-developed patient, in no apparent distress. The patient is alert, awake and oriented to time, place and person. Speech is fluent. Cranial nerve examination: pupils to be equal, round and reactive to light. Extra-ocular movements are intact. Facial motor and sensory function are normal and symmetrical. Gross hearing appears intact. Sternocleidomastoid and trapezius muscles are symmetrical. Other cranial nerves are intact. Neck is soft and supple with a good range of motion without pain. Muscle strength is normal in all muscle groups of both upper and lower extremities. Sensory examination is intact to light touch and pin prick in both the upper and lower extremities. Deep tendon reflexes are symmetrical in both upper and lower extremities. There is a bilateral plantar flexion response. Cerebellar examination is unremarkable, without deficits. SKIN: No rashes, ecchymoses or lesions. Cool and dry. EYES: Pupils equal round and reactive. Extraocular motions intact. No scleral icterus. No injection or drainage. ENT: Nose without bleeding, purulent drainage or septal hematoma. Throat without erythema, tonsillar hypertrophy or exudate. Uvula midline. Airway patent. NECK: Trachea midline. No JVD or lymphadenopathy. Supple, nontender, no meningeal signs. CARDIOVASCULAR: Regular rate and rhythm without murmurs, gallops, or rubs. SKIN Warm and dry Result Diagram: 11/25/1762911/25/17629 Imaging Last [address] 11/25/17 0000 Signed Impressions: Service Date/Time: Saturday, November 25, 2017 06:45 - CONCLUSION: No bleed or other acute intracranial abnormality. Chronic ventriculomegaly unchanged. John Graf MD Cervical Spine CT 11/25/17 0000 Signed Impressions: Service Date/Time: Saturday, November 25, 2017 06:45 - CONCLUSION: Intact cervical spine. Degenerative changes as above. John Graf MD Carotid Artery Ultrasound 11/25/17 0000 Signed Impressions: Service Date/Time: Saturday, November 25, 2017 09:59 - CONCLUSION: No significant plaque is seen. John Ronquillo MD Brain MRI 11/25/17 0000 Signed Impressions: Service Date/Time: Saturday, November 25, 2017 11:18 - CONCLUSION: 1. Stable ventriculomegaly with a right sided ventricular shunt catheter in place. 2. No acute pathology. Ruddy Childers MD Assessment and Plan Assessment and Plan Caprini VTE Risk Assessment: Mod/High Risk (score >= 2) Caprini Risk Assessment Model Point Value = 1 Point Value = 2 Point Value = 3 Point Value = 5 Age 41-60 Minor surgery BMI > 25 kg/m2 Swollen legs Varicose veins or History of unexplained or recurrent spontaneous Oral contraceptives or hormone replacement Sepsis (< 1 month) Serious lung disease, including pneumonia (< 1 month) Abnormal pulmonary function Acute myocardial infarction Congestive heart failure (< 1 month) History of inflammatory bowel disease Medical patient at bed rest Age 61-74 Arthroscopic surgery Major open surgery (> 45 min) Laparoscopic surgery (> 45 min) Malignancy Confined to bed (> 72 hours) Immobilizing plaster cast Central venous access Age >= 75 History of VTE Family history of VTE Factor V Leiden Prothrombin [id number] Lupus anticoagulant Anticardiolipin antibodies Elevated serum homocysteine Heparin-induced thrombocytopenia Other congenital or acquired thrombophilia Stroke (< 1 month) Elective arthroplasty Hip, pelvis, or leg fracture Acute spinal cord injury (< 1 month) Prophylaxis Regimen Total Risk Factor Score Risk Level Prophylaxis Regimen 0-1 Low Early ambulation 2 Moderate Order ONE of the following: *Sequential Compression Device (SCD) *Heparin 5000 units SQ BID 3-4 Higher Order ONE of the following medications: *Heparin 5000 units SQ TID *Enoxaparin/Lovenox 40 mg SQ daily (WT < 150 kg, CrCl > 30 mL/min) *Enoxaparin/Lovenox 30 mg SQ daily (WT < 150 kg, CrCl > 10-29 mL/min) *Enoxaparin/Lovenox 30 mg SQ BID (WT < 150 kg, CrCl > 30 mL/min) AND/OR *Sequential Compression Device (SCD) 5 or more Highest Order ONE of the following medications: *Heparin 5000 units SQ TID (Preferred with Epidurals) *Enoxaparin/Lovenox 40 mg SQ daily (WT < 150 kg, CrCl > 30 mL/min) *Enoxaparin/Lovenox 30 mg SQ daily (WT < 150 kg, CrCl > 10-29 mL/min) *Enoxaparin/Lovenox 30 mg SQ BID (WT < 150 kg, CrCl > 30 mL/min) AND *Sequential Compression Device (SCD) Attending Statement This is a 52-year-old male history of traumatic brain injury and subdural hematoma secondary to fall and history of multiple falls throughout his lifetime who presented with multiple falls He has a CUP TRIMMING MACHINE OPERATOR shunt. Recommend shunt series to assess shunt Syncope resulting in multiple falls He has a history of multiple fall. Possible vasovagal episode. Intermittent in delirium. Not related to his shunt. At the moment asymptomatic. Patient has been having these episodes intermittently per patient's . Requested to see psychiatrist. He does have a history of schizophrenia. Schizophrenia. Continue with home medication. Protonix for stress ulcer prophylaxis Deshawn yin and SCD's for DVT prophylaxis Mukesh Botello MD Nov 28, 2017 16:55
--- NOTE | 2017-11-28 16:58 | PD.OP ---
Operative Report Date of Surgery: Nov 26, 2017 Preoperative Diagnosis: Hydrocephalus Postoperative Diagnosis: Hydrocephalus Procedure: Reprogramming of PUBLISHING MANAGER shunt Anesthesia: RADHA Surgeon: Mukesh Botello Coffee Weigher(s): RADHA Operation and Findings: The patient is a 52 year old [female/male] with a history of normal pressure hydrocephalus who has developed recurrent falls. Following an MRI, reprogramming of the shunt was indicated. The [id number] details of the procedure, indications, alternatives and risks were discussed with the patient. Using a [employer] computer, the shunt was reprogrammed as follows:The device was placed over the valve and the transfuser was calibrated at a pressure of 1.0. The patient tolerated the procedure well without complication. Mukesh Botello MD Nov 28, 2017 16:58
== END 2017-11-27 11:03 | disposition home or self-care (01) ==
LOC: NEPE 06:20 → NEDA 08:20 → NEPGCP 10:26
PROVIDERS: ADMIT Family Medicine; ATTEND Family Medicine
DX: G93.40 Encephalopathy, unspecified (principal); R55 Syncope and collapse; R42 Dizziness and giddiness; R94.01 Abnormal electroencephalogram [EEG]; R00.1 Bradycardia, unspecified; K21.9 Gastro-esophageal reflux disease without esophagitis; G91.2 (Idiopathic) normal pressure hydrocephalus; G93.89 Other specified disorders of brain; M47.812 Spondylosis without myelopathy or radiculopathy, cervical region; F20.9 Schizophrenia, unspecified; M81.0 Age-related osteoporosis without current pathological fracture; Z91.81 History of falling; Z87.820 Personal history of traumatic brain injury; Z79.899 Other long term (current) drug therapy; Z98.2 Presence of cerebrospinal fluid drainage device; W19.XXXA Unspecified fall, initial encounter
CPT/HCPCS: 70250; 70450; 70551; 71045; 72040; 72125; 74018; 80053; 80175; 84484; 85025; 93005; 93306; 93880; 95819; 96361; 96374; 97162; 99285; G0378; G8987; G8988; J2765

== ENCOUNTER 2018-05-26 23:12 | Inpatient (IN) ==
--- NOTE | 2018-05-27 01:18 | ED ---
HPI General Chief complaint: Nausea/Vomiting/Diarrhea Stated complaint: vomiting x 48 hours Source: patient and family Mode of arrival: ambulatory Limitations: no limitations History of Present Illness HPI Narrative: 52-year-old man brought to ED by his for 3 days of nausea, vomiting and diarrhea. They both were sick with similar symptoms and hers began a day before his but his are very severe. She is concerned because he is unable to hold down any food, water or medications. No headache or neck stiffness. No fevers or chills. No chest pain or exertional dyspnea. No blood in stools or vomitus. Related Data Home Medications Medication Instructions Recorded Confirmed alendronate 70 mg PO QWEEK 05/27/18 05/27/18 baclofen 20 mg PO TID 05/27/18 05/27/18 benztropine 1 mg PO BID 05/27/18 05/27/18 gabapentin 400 mg PO TID 05/27/18 05/27/18 haloperidol 1 mg PO TID 05/27/18 05/27/18 lamotrigine 75 mg PO BID 05/27/18 05/27/18 montelukast 10 mg PO QPM 05/27/18 05/27/18 omeprazole 20 mg PO DAILY 05/27/18 05/27/18 primidone 50 mg PO TID 05/27/18 05/27/18 Allergies Allergy/AdvReac Type Severity Reaction Status Date / Time chlorhexidine Allergy Severe Rash Unverified 06/03/17 15:08 Review of Systems ROS: all other systems reviewed are negative [facility] Medical History Medical History Depression (Acute) Encephalopathy (Acute) Hydrocele (Acute) Hydrocephaly (Acute) OCD (obsessive compulsive disorder) (Acute) Psychosis (Acute) Schizophrenia (Acute) Seizure (Acute) Subdural hematoma (Acute) TBI (traumatic brain injury) (Acute) Trichotillomania (Acute) Surgical History Surgical History History of cholecystectomy (Acute) SAWMILL SUPERVISOR (ventriculoperitoneal) shunt status (Acute) Social History Social History Substance History: No History of Abuse Second Hand Smoke Exposure: No Smoking Status: Never smoker How Often Do You Have a Drink Containing Alcohol: Never Recent Travel in [facility] within the Last 8 Weeks: No Recent Out of Country Travel within the Last 8 Weeks: No Immunization History Tetanus Immunization: >5 Years Hx Influenza Vaccine This Season: No Exam Narrative Exam Narrative: GENERAL: 52-year-old man lying on stretcher holding an emesis bucket. Patient's is seated at bedside accompanying patient. SKIN: Focused skin assessment warm/dry. HEAD: Atraumatic. Normocephalic. SAWMILL SUPERVISOR shunt palpable and no discontinuity in tubing observed. EYES: Pupils equal and round. No scleral icterus. No injection or drainage. ENT: No nasal bleeding or discharge. Mucous membranes pink and moist. NECK: Trachea midline. No JVD. CARDIOVASCULAR: Regular rate and rhythm. No murmur appreciated. RESPIRATORY: No accessory muscle use. Clear to auscultation. Breath sounds equal bilaterally. GASTROINTESTINAL: Abdomen soft, non-tender, nondistended. Hepatic and splenic margins not palpable. MUSCULOSKELETAL: No obvious deformities. No clubbing. No cyanosis. No edema. NEUROLOGICAL: Awake but with slowed response time. Fine resting tremor. No obvious cranial nerve deficits. Motor grossly within normal limits. 5 out of 5 motor strength in all 4 limbs. Sensation to light touch intact in all 4 extremities. PSYCHIATRIC: Blunted mood and affect; poor memory for recent and remote events. Course Reevaluation(s) Reevaluation #1: Informed by lab the patient's sodium is 119. Unfortunately he is already received the entire bag of normal saline as I had not anticipated that he would be this profoundly hyponatremic. However no neurological change or new neurological focal deficits. Ordered ECG. Plan for admission. Time: 02:16 Consultations Consultation #1: This woke up with Dr. JONES regarding the patient's case. She will admit for further management of his hyponatremia. At her request I ordered a CT head to evaluate the patient's shunt function. Time: 03:36 Initial Documented Vital Signs Temperature 97.2 F L 05/26/18 23:23 Pulse Rate 72 05/26/18 23:23 Respiratory Rate 12 05/26/18 23:23 Blood Pressure 142/87 H 05/26/18 23:23 Pulse Oximetry 96 05/26/18 23:23 Last Documented Vital Signs Temperature 98.7 F 05/27/18 05:02 Pulse Rate 79 05/27/18 05:02 Respiratory Rate 16 05/27/18 05:02 Blood Pressure 119/58 L 05/27/18 05:02 Pulse Oximetry 98 05/27/18 01:35 Medical Decision Making [facility] Narrative Medical decision making narrative: 52-year-old man brought here by his for evaluation and treatment of his nausea, vomiting and diarrhea. Given the history of illness seems most consistent with a viral gastroenteritis. This is strengthened by the fact that his also had symptoms and they started prior to his. Consider shunt obstruction less likely as patient has no headache. CT had revealed unchanged ventricles and normal hardware. Patient was found to have sodium of 119. This is likely secondary to his poor oral intake and profuse vomiting and diarrhea. Medical Screen Exam Complete: Yes Emergency Medical Condition: Yes Differential Diagnosis Differential Diagnosis: Electrolyte disturbance, metabolic disorder, viral gastroenteritis, shunt obstruction, worsening hydrocephalus, cardiac arrhythmia Medical Records Medical records reviewed: Yes I reviewed the patient's medical records. Lab Data Lab results reviewed: Yes I reviewed the patient's lab results. Result diagrams: 05/27/18 01:36 05/27/18 01:36 Lab Results 05/27/18 05/27/18 05/27/18 Range/Units 01:36 01:36 04:17 CBC w Diff Auto diff final WBC 8.5 (4.0-11.0) th/mm3 RBC 4.36 L (4.50-5.90) mil/mm3 Hgb 13.8 (13.0-17.0) gm/dL Hct 40.7 (39.0-51.0) % MCV 93.4 (80.0-100.0) fL MCH 31.6 (27.0-34.0) pg MCHC 33.8 (32.0-36.0) % RDW 12.4 (11.6-17.2) % Plt Count 255 (150-450) th/mm3 MPV 9.3 (7.0-11.0) fL Neut % (Auto) 85.0 H (16.0-70.0) % Lymph % (Auto) 6.6 L (9.0-44.0) % [place] % (Auto) 7.7 (0.0-8.0) % Eos % (Auto) 0.4 (0.0-4.0) % Baso % (Auto) 0.3 (0.0-2.0) % Neut # (Auto) 7.2 (1.8-7.7) th/mm3 Lymph # (Auto) 0.6 L (1.0-4.8) th/mm3 [place] # (Auto) 0.7 (0.0-0.9) th/mm3 Eos # (Auto) 0.0 (0.0-0.4) th/mm3 Baso # (Auto) 0.0 (0.0-0.2) th/mm3 WBC Differential . Differential Comment . Sodium 119 L* (136-145) meq/L Potassium 3.7 (3.5-5.1) meq/L Chloride 84 L (98-107) meq/L Carbon Dioxide 23.6 (21.0-32.0) meq/L Anion Gap 11 (5-15) meq/L BUN 9 (7-18) mg/dL Creatinine 1.00 (0.60-1.30) mg/dL Estimated GFR 78 L (>89) mL/min Random Glucose 105 (74-106) mg/dL Calcium 8.8 (8.5-10.1) mg/dL Total Bilirubin 1.9 H (0.2-1.0) mg/dL AST 16 (15-37) U/L ALT 21 (12-78) U/L Alkaline Phosphatase 110 (45-117) U/L Total Protein 8.5 H (6.4-8.2) g/dL Albumin 4.4 (3.4-5.0) g/dL Lipase 53 L (73-393) U/L Urine Color Yellow (Yellw/Straw) Urine Clarity Clear (Clear) Urine pH 6.0 (5.0-8.5) Ur Specific [place] 1.025 (1.002-1.035) Urine Protein Trace (Neg-Trace) mg/dL Urine Glucose (UA) Negative (Negative) mg/dL Urine Ketones 40 H (Negative) mg/dL Urine Occult Blood Trace (Negative) Urine Nitrate Negative (Negative) Urine Bilirubin Negative (Negative) Urine Urobilinogen 1.0 (Less than 2) mg/dL Ur Leukocyte Esterase Negative (Negative) Urine RBC 4-15 H (0-3) /hpf Urine WBC 0-5 (0-5) /hpf Ur Squamous Epith Cells 0-5 (0-5) /hpf Micro UA Comment Culture not ind Ur Microscopic Review Microscopic reviewed Urine Culture Comments Culture not ind Imaging Data Radiologist's impression: Abdomen X-Ray 05/27/18 01:24 CONCLUSION: Benign-appearing abdomen. Head CT 05/27/18 03:33 CONCLUSION: Appearance and position of the shunt catheter is similar to the prior CT, as is the moderate ventriculomegaly. No evidence of acute ventricular obstruction. . ECG Data Attestation: I personally reviewed and interpreted this ECG as follows: Interpretation: Rate 76 bpm rhythm normal sinus, [place] interval 143 ms, QRS interval 88 ms, QTc interval 408 ms, no ST depression or elevations, not a STEMI. Discharge Plan Discharge Disposition Patient Disposition: 30 Still Patient Discharge Condition Condition: Serious Physicians Team ED Provider: Duarte Snowden Primary Care Provider: John Daniels Attending Provider: Charles Gandhi Discharge Interventions Interventions: Vital Signs Last Done: 05/27/18 05:02 Status ED Status: Admitted Patient
[2018-05-27] MEDS ORDERED: Sod Chloride 0.9% Inj 1,000 ML IV.SIG SCH (01:30)
[2018-05-27 01:59] LABS: Baso % (Auto) 0.3 % (0.0-2.0); Eos % (Auto) 0.4 % (0.0-4.0); Hematocrit 40.7 % (39.0-51.0); Hemoglobin 13.8 gm/dL (13.0-17.0); Lymph # (Auto) 0.6 th/mm3 (1.0-4.8); Lymph % (Auto) 6.6 % (9.0-44.0); Mean Corpuscular HGB Conc 33.8 % (32.0-36.0); Mean Corpuscular Hemoglobin 31.6 pg (27.0-34.0); Mean Corpuscular Volume 93.4 fL (80.0-100.0); Mean Platelet Volume 9.3 fL (7.0-11.0); Mono # (Auto) 0.7 th/mm3 (0.0-0.9); Mono % (Auto) 7.7 % (0.0-8.0); Neut # (Auto) 7.2 th/mm3 (1.8-7.7); Platelet Count 255 th/mm3 (150-450); Red Blood Count 4.36 mil/mm3 (4.50-5.90); Red Cell Distribution Width 12.4 % (11.6-17.2); White Blood Count 8.5 th/mm3 (4.0-11.0)
[2018-05-27 02:12] LABS: Alanine Aminotransferase 21 U/L (12-78); Albumin 4.4 g/dL (3.4-5.0); Anion Gap 11 meq/L (5-15); Aspartate Aminotransferase 16 U/L (15-37); Blood Urea Nitrogen 9 mg/dL (7-18); Calcium 8.8 mg/dL (8.5-10.1); Carbon Dioxide 23.6 meq/L (21.0-32.0); Chloride 84 meq/L (98-107); Glucose,Random 105 mg/dL (74-106); Lipase 53 U/L (73-393); Potassium 3.7 meq/L (3.5-5.1)
[2018-05-27 02:14] LABS: Sodium 119 meq/L (136-145)
--- NOTE | 2018-05-27 02:17 | XR ---
EXAM DATE: 05/27/2018 1:55 AM EDT AGE/SEX: 52 years / Male INDICATIONS: Nausea, vomiting, and diarrhea. CLINICAL DATA: This is the patient's initial encounter. Patient reports that signs and symptoms have been present for 2 days and indicates a pain score of 4/10. MEDICAL/SURGICAL HISTORY: . Hydrocephalus. Cholecystectomy. 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 COMPARISON: [facility] [place], SHUNT SERIES, 11/26/2017. . FINDINGS: Supine and upright views of the abdomen were performed. The abdominal bowel gas pattern is normal. No air-fluid levels are seen. No abnormal masses, calcifications, or organomegaly is seen. The visualiz ed lower lungs are clear. No evidence of free intraperitoneal gas. The osseous structures are unremar kable. Ventriculoperitoneal shunt catheter again noted without an apparent acute complication. Changes of sc rew and plate fixation of the right hemipelvis again noted. CONCLUSION: Benign-appearing abdomen. Electronically signed by: John Graf MD 05/27/2018 2:15 AM EDT
[2018-05-27 02:22] LABS: Alkaline Phosphatase 110 U/L (45-117); Glomerular Filtration Rate 78 mL/min (>89); Total Protein 8.5 g/dL (6.4-8.2)
[2018-05-27] MEDS ORDERED: Bisacodyl 10 MG Supp RECTAL PRN (03:34)
[2018-05-27] MEDS ORDERED: Acetaminophen 325 MG Tablet PO PRN (03:34)
[2018-05-27] MEDS ORDERED: Sod Chloride 0.9% Inj 1,000 ML IV.CONT SCH (03:45)
--- NOTE | 2018-05-27 04:20 | CT ---
EXAM DATE: 05/27/2018 4:13 AM EDT AGE/SEX: 52 years / Male INDICATIONS: Vomiting for last two days. Previous hydrocephalus. CLINICAL DATA: This is the patient's initial encounter. Patient reports that signs and symptoms have been present for 2 days and indicates a pain score of 0/10. MEDICAL/SURGICAL HISTORY: . Depression. Encephalopathy. Schizophrenia. Traumatic brain injury. . C holecystectomy. Ventriculoperitoneal shunt. RADIATION DOSE: 53.82 CTDI (mGy) COMPARISON: [facility] [place], CT BRAIN W/O CONTRAST, 11/25/2017. . TECHNIQUE: CT of the head without contrast. Using automated exposure control and adjustment of the mA and/or kV according to patient size, radiation dose was kept as low as reasonably achievable to ob tain optimal diagnostic quality images. DICOM format image data is available electronically for revi ew and comparison. FINDINGS: Ventriculoperitoneal shunt catheter again noted. Catheter enters via a right parietal approach. The t ip is in the left lateral ventricle. The positioning is unchanged. There is moderate ventriculomegaly that is also unchanged. No cerebral edema or evidence of transependymal flow of CSF. No intracranial hemorrhage or hematoma. No mass, mass effect or midline shift. No evidence of an acut e ischemic event. CONCLUSION: Appearance and position of the shunt catheter is similar to the prior CT, as is the moder ate ventriculomegaly. No evidence of acute ventricular obstruction. . Electronically signed by: John Graf MD 05/27/2018 4:18 AM EDT
[2018-05-27 04:47] LABS: Bilirubin,Urine Negative (Negative); Clarity,Urine Clear (Clear); Color,Urine Yellow (Yellw/Straw); Glucose,Urine (UA) Negative (Negative); Leukocyte Esterase,Urine Negative (Negative); Nitrite,Urine Negative (Negative); Specific Gravity,Urine 1.025 (1.002-1.035)
[2018-05-27 04:54] LABS: Squamous Epithelial Cell,Urine 0-5 /hpf (0-5); WBC,Urine 0-5 /hpf (0-5)
[2018-05-27] MEDS: Senna/Docusate Sodium 8.6/50 MG Tablet PO SCH ×2 (09:07→20:51)
[2018-05-27] MEDS: Sodium Chloride 0.45 % Inj 1,000 ML IV.CONT SCH (11:10)
--- NOTE | 2018-05-27 11:15 | P.HP ---
History of Present Illness Service: Hospitalist Primary Care Physician: John Daniels DO Chief Complaint: Abdominal pain, Nausea, vomiting. History of Present Illness: Mr. Cintron is a pleasant 52 year old male with a history of TBI, hydrocephalus status post PRIMER AND POWDER CANNING LEADER shunt placement in 2009, various psychiatric disorders who presented to the emergency department on 05/26/2018 due to abdominal pain, persistent nausea vomiting. On 05/24/2018 patient and his had homemade fried chicken and subsequently both developed abdominal pain. While the did not develop any worsening of her symptoms, patient started having abdominal pain and nausea vomiting. Did not have any chest pain, shortness of breath, fever or chills. No changes in bladder habits. On arrival his sodium was 119. Family history: Father with heart disease. Inpatient Certification: I certify that the inpatient services were ordered in accordance with Medicare regulations governing the order. This includes certification that hospital inpatient services are reasonable and necessary and in the case of services not specified as inpatient-only under 42 CFR 419.22(n), that they are appropriately provided as inpatient services in accordance to with the 2-midnight benchmark under 43 CFR 412.3(e) Estimated Total Length of Stay (Days): 2 Plans for Post Hospital Care: Not yet determined PMFSH - History History Provided By: Patient, Family Member - Medical History Medical History: Medical History (Last Reviewed 05/27/18 @ 07:57 by Edwar Gramajo) Depression Encephalopathy Hydrocele Hydrocephaly OCD (obsessive compulsive disorder) Psychosis Schizophrenia Seizure Subdural hematoma TBI (traumatic brain injury) Trichotillomania - Surgical History Surgical History: Surgical History (Last Reviewed 05/27/18 @ 07:57 by Edwar Gramajo) History of cholecystectomy PRIMER AND POWDER CANNING LEADER (ventriculoperitoneal) shunt status - Tobacco History Second Hand Smoke Exposure: No Smoking Status: Never smoker - Alcohol History How Often Do You Have a Drink Containing Alcohol: Never - Substance Use History Substance History: No History of Abuse - Travel History Recent Travel in the [place] Within the Last 8 Weeks: No Recent Travel Out of the Country Within the Last 8 Weeks: No - Immunization History Tetanus Immunization: >5 Years Hx Influenza Vaccine This Season: No Medications and Allergies Active Medications: Active Medications Acetaminophen (Tylenol) 650 mg PO Q4H PRN PRN Reason: Temp > 100.4 Al Hydroxide/Mg Hydroxide (Milk Of Magnesia Liq) 30 ml PO Q12H PRN PRN Reason: Mild Constipation Bisacodyl (Dulcolax Supp) 10 mg RECTAL DAILY PRN PRN Reason: SEVERE CONSITIPATION Sodium Chloride (Ns Inj) 1,000 mls @ 0 mls/hr IV.SIG BOLUS [facility] Last Infusion: 05/27/18 02:45 Dose: Infused Sodium Chloride (1/2 Normal Saline Inj) 1,000 mls @ 84 mls/hr IV.CONT .[id number] [facility] Lactulose (Lactulose Liq) 30 ml PO DAILY PRN PRN Reason: SEVERE CONSITIPATION Ondansetron HCl (Zofran Inj) 4 mg IV.PUSH Q6H PRN PRN Reason: NAUSEA OR VOMITING Senna/Docusate Sodium (Hannah-Colace) 1 tab PO BID [facility] Last Admin: 05/27/18 09:07 Dose: Not Given Sennosides (Senokot) 17.2 mg PO Q12H PRN PRN Reason: Moderate Constipation Sodium Chloride (Ns Flush) 2 ml IV.FLUSH PRN PRN PRN Reason: FLUSH AFTER USING IV ACCESS Allergies Allergy/AdvReac Type Severity Reaction Status Date / Time chlorhexidine Allergy Severe Rash Unverified 06/03/17 15:08 Home Medications Medication Instructions Recorded Confirmed Type alendronate 70 mg PO QWEEK 05/27/18 05/27/18 History baclofen 20 mg PO TID 05/27/18 05/27/18 History benztropine 1 mg PO BID 05/27/18 05/27/18 History gabapentin 400 mg PO TID 05/27/18 05/27/18 History haloperidol 1 mg PO TID 05/27/18 05/27/18 History lamotrigine 75 mg PO BID 05/27/18 05/27/18 History montelukast 10 mg PO QPM 05/27/18 05/27/18 History omeprazole 20 mg PO DAILY 05/27/18 05/27/18 History primidone 50 mg PO TID 05/27/18 05/27/18 History Exam Vital signs: Vital Signs 05/26/18 23:23 05/27/18 01:35 05/27/18 04:15 Temperature 97.2 F L Pulse Rate 72 78 75 Respiratory Rate 12 16 18 Blood Pressure 142/87 H 145/75 H 132/85 Pulse Oximetry 96 98 05/27/18 05:02 05/27/18 06:54 05/27/18 08:00 Temperature 98.7 F 98 F 98.3 F Pulse Rate 79 80 Respiratory Rate 16 16 Blood Pressure 119/58 L 130/73 Pulse Oximetry 99 Intake & Output 05/26/18 05/27/18 05/27/18 18:59 06:59 18:59 Intake Total 1000 / 1000 Output Total 900 / 900 Balance 100 / 100 Weight 75.2 kg Intake: IV 1000 / 1000 NS Inj 1,000 ML @ Wide Open IV. 1000 / 1000 SIG BOLUS SAUNDRA Rx#:[id number] Output: Urine 900 / 900 Narrative: GENERAL: This is a well-nourished, well-developed patient, in no apparent distress. SKIN: No rashes, ecchymoses or lesions. Warm and dry. HEAD: Atraumatic. Normocephalic. No temporal or scalp tenderness. EYES: Pupils equal round and reactive. No injection or drainage. ENT: Nose without bleeding, purulent drainage or septal hematoma. Airway patent. NECK: Trachea midline. No lymphadenopathy. Supple, nontender, no meningeal signs. CARDIOVASCULAR: Regular rate and rhythm without murmurs, gallops, or rubs. No JVD. RESPIRATORY: Clear to auscultation. Breath sounds equal bilaterally. No wheezes , rales, or rhonchi. GASTROINTESTINAL: Abdomen soft, non-tender, nondistended. No guarding. MUSCULOSKELETAL: Extremities without clubbing, cyanosis, or edema. NEUROLOGICAL: Awake and alert. Cranial nerves II through XII intact. No focal neurological deficits. Normal speech. Results - Labs CBC & Chem 7: 05/27/18 01:36 05/27/18 09:50 Labs: Laboratory Results - last 24 hr 05/27/18 05/27/18 05/27/18 01:36 01:36 04:17 CBC w Diff Auto diff final WBC 8.5 RBC 4.36 L Hgb 13.8 Hct 40.7 MCV 93.4 MCH 31.6 MCHC 33.8 RDW 12.4 Plt Count 255 MPV 9.3 Neut % (Auto) 85.0 H Lymph % (Auto) 6.6 L [place] % (Auto) 7.7 Eos % (Auto) 0.4 Baso % (Auto) 0.3 Neut # (Auto) 7.2 Lymph # (Auto) 0.6 L [place] # (Auto) 0.7 Eos # (Auto) 0.0 Baso # (Auto) 0.0 WBC Differential . Differential Comment . Sodium 119 L* Potassium 3.7 Chloride 84 L Carbon Dioxide 23.6 Anion Gap 11 BUN 9 Creatinine 1.00 Estimated GFR 78 L Random Glucose 105 Calcium 8.8 Total Bilirubin 1.9 H AST 16 ALT 21 Alkaline Phosphatase 110 Total Protein 8.5 H Albumin 4.4 Lipase 53 L Urine Color Yellow Urine Clarity Clear Urine pH 6.0 Ur Specific [place] 1.025 Urine Protein Trace Urine Glucose (UA) Negative Urine Ketones 40 H Urine Occult Blood Trace Urine Nitrate Negative Urine Bilirubin Negative Urine Urobilinogen 1.0 Ur Leukocyte Esterase Negative Urine RBC 4-15 H Urine WBC 0-5 Ur Squamous Epith Cells 0-5 Micro UA Comment Culture not ind Ur Microscopic Review Microscopic reviewed Urine Culture Comments Culture not ind 05/27/18 09:50 CBC w Diff WBC RBC Hgb Hct MCV MCH MCHC RDW Plt Count MPV Neut % (Auto) Lymph % (Auto) [place] % (Auto) Eos % (Auto) Baso % (Auto) Neut # (Auto) Lymph # (Auto) [place] # (Auto) Eos # (Auto) Baso # (Auto) WBC Differential Differential Comment Sodium 129 L D Potassium Chloride Carbon Dioxide Anion Gap BUN Creatinine Estimated GFR Random Glucose Calcium Total Bilirubin AST ALT Alkaline Phosphatase Total Protein Albumin Lipase Urine Color Urine Clarity Urine pH Ur Specific [place] Urine Protein Urine Glucose (UA) Urine Ketones Urine Occult Blood Urine Nitrate Urine Bilirubin Urine Urobilinogen Ur Leukocyte Esterase Urine RBC Urine WBC Ur Squamous Epith Cells Micro UA Comment Ur Microscopic Review Urine Culture Comments - Imaging Impressions Abdomen X-Ray 05/27/18 01:24 CONCLUSION: Benign-appearing abdomen. Head CT 05/27/18 03:33 CONCLUSION: Appearance and position of the shunt catheter is similar to the prior CT, as is the moderate ventriculomegaly. No evidence of acute ventricular obstruction. . Caprini VTE Risk Assessment Caprini VTE Risk Assessment: No/Low Risk (score <= 1) Caprini Risk Assessment Model: Point Value = 1 Point Value = 2 Point Value = 3 Point Value = 5 Age 41-60 Minor surgery BMI > 25 kg/m2 Swollen legs Varicose veins or History of unexplained or recurrent spontaneous Oral contraceptives or hormone replacement Sepsis (< 1 month) Serious lung disease, including pneumonia (< 1 month) Abnormal pulmonary function Acute myocardial infarction Congestive heart failure (< 1 month) History of inflammatory bowel disease Medical patient at bed rest Age 61-74 Arthroscopic surgery Major open surgery (> 45 min) Laparoscopic surgery (> 45 min) Malignancy Confined to bed (> 72 hours) Immobilizing plaster cast Central venous access Age >= 75 History of VTE Family history of VTE Factor V Leiden Prothrombin [id number] Lupus anticoagulant Anticardiolipin antibodies Elevated serum homocysteine Heparin-induced thrombocytopenia Other congenital or acquired thrombophilia Stroke (< 1 month) Elective arthroplasty Hip, pelvis, or leg fracture Acute spinal cord injury (< 1 month) Prophylaxis Regimen: Total Risk Factor Score Risk Level Prophylaxis Regimen 0-1 Low Early ambulation 2 Moderate Order ONE of the following: *Sequential Compression Device (SCD) *Heparin 5000 units SQ BID 3-4 Higher Order ONE of the following medications: *Heparin 5000 units SQ TID *Enoxaparin/Lovenox 40 mg SQ daily (WT < 150 kg, CrCl > 30 mL/min) *Enoxaparin/Lovenox 30 mg SQ daily (WT < 150 kg, CrCl > 10-29 mL/min) *Enoxaparin/Lovenox 30 mg SQ BID (WT < 150 kg, CrCl > 30 mL/min) AND/OR *Sequential Compression Device (SCD) 5 or more Highest Order ONE of the following medications: *Heparin 5000 units SQ TID (Preferred with Epidurals) *Enoxaparin/Lovenox 40 mg SQ daily (WT < 150 kg, CrCl > 30 mL/min) *Enoxaparin/Lovenox 30 mg SQ daily (WT < 150 kg, CrCl > 10-29 mL/min) *Enoxaparin/Lovenox 30 mg SQ BID (WT < 150 kg, CrCl > 30 mL/min) AND *Sequential Compression Device (SCD) Assessment and Plan - Plan Mr. Cintron is a pleasant 52-year-old male with a history of TBI, hydrocephalus status post PRIMER AND POWDER CANNING LEADER shunt in 2009 and various psychiatric disorders who presented to the emergency department on 05/26/2018 due to abdominal pain, nausea and vomiting. His sodium level was 119 on admission Probable gastroenteritis -Possibly related to homemade fried chicken he had on 05/24/2018. -Today he is tolerating breakfast well. Continue IV fluid. Severe hyponatremia -Sodium on admission 119. No evidence of neurological deficits. -Repeat sodium this morning was 129. -We will discontinue normal saline and start half-normal saline at 84 cc/h. -Check sodium level at 1600 today. History of TBI History of normal pressure hydrocephalus -Status post PRIMER AND POWDER CANNING LEADER shunt [place] [address] scan shows no evidence of PRIMER AND POWDER CANNING LEADER shunt malfunction. Depression Hx of Seizure disorder Hx of Schizophrenia -Home meds include Lamotrigine, Haldol, Primodone, Baclofen, Gabapentin, Benztropine. -We may slowly introduce these medications. Full code. SCDs.
--- NOTE | 2018-05-27 11:59 | ECG ---
Date Performed: 05/27/2018 Time Performed: 02:35:55 PTAGE: 52 years EKG: Sinus rhythm NORMAL ECG PREVIOUS TRACING : 11/25/2017 06.30 Since the previous tracing, no significant change noted DOCTOR: Hilary Pisano Interpretating Date/Time 05/27/2018 11:57:52
[2018-05-27] MEDS: lamoTRIgine 25 MG TABLET PO SCH (21:32)
[2018-05-27] MEDS: Haloperidol 1 MG Tablet PO SCH (21:32)
[2018-05-27] MEDS ORDERED: Benztropine 2 MG Tablet PO SCH (22:00)
[2018-05-28] MEDS: Sodium Chloride 0.45 % Inj 1,000 ML IV.CONT SCH (00:34)
[2018-05-28 04:56] LABS: Baso % (Auto) 0.7 % (0.0-2.0); Eos # (Auto) 0.1 th/mm3 (0.0-0.4); Eos % (Auto) 1.5 % (0.0-4.0); Hematocrit 38.9 % (39.0-51.0); Hemoglobin 13.5 gm/dL (13.0-17.0); Lymph % (Auto) 16.6 % (9.0-44.0); Mean Corpuscular HGB Conc 34.6 % (32.0-36.0); Mean Corpuscular Hemoglobin 31.4 pg (27.0-34.0); Mean Corpuscular Volume 90.5 fL (80.0-100.0); Mean Platelet Volume 9.2 fL (7.0-11.0); Mono # (Auto) 0.9 th/mm3 (0.0-0.9); Mono % (Auto) 15.2 % (0.0-8.0); Neut # (Auto) 3.9 th/mm3 (1.8-7.7); Platelet Count 258 th/mm3 (150-450); Red Cell Distribution Width 12.9 % (11.6-17.2); White Blood Count 5.9 th/mm3 (4.0-11.0)
[2018-05-28 05:12] LABS: Alanine Aminotransferase 18 U/L (12-78); Albumin 3.6 g/dL (3.4-5.0); Alkaline Phosphatase 95 U/L (45-117); Anion Gap 6 meq/L (5-15); Aspartate Aminotransferase 11 U/L (15-37); Blood Urea Nitrogen 7 mg/dL (7-18); Calcium 8.9 mg/dL (8.5-10.1); Carbon Dioxide 26.2 meq/L (21.0-32.0); Chloride 104 meq/L (98-107); Glomerular Filtration Rate 79 mL/min (>89); Glucose,Random 93 mg/dL (74-106); Potassium 3.9 meq/L (3.5-5.1); Sodium 136 meq/L (136-145); Total Protein 7.3 g/dL (6.4-8.2)
[2018-05-28] MEDS: lamoTRIgine 25 MG TABLET PO SCH (08:49)
[2018-05-28] MEDS: Senna/Docusate Sodium 8.6/50 MG Tablet PO SCH (08:50)
[2018-05-28] MEDS: Haloperidol 1 MG Tablet PO SCH (08:50)
--- NOTE | 2018-05-28 08:56 | P.PN ---
Subjective Interval history: Follow-up for gastroenteritis, hyponatremia. Patient is currently doing well. Sitting in his chair and tolerating breakfast well. No nausea vomiting, no chest pain, shortness of breath, fever or chills. Physical Exam Vital signs: Vital Signs 05/27/18 08:50 05/27/18 09:00 05/27/18 10:00 Temperature Pulse Rate 82 76 82 Respiratory Rate 22 11 L 17 Blood Pressure 98/62 L 102/76 Pulse Oximetry 98 97 98 05/27/18 11:00 05/27/18 12:00 05/27/18 13:00 Temperature 97.9 F Pulse Rate 70 90 72 Respiratory Rate 11 L 18 12 Blood Pressure 111/74 117/78 91/55 L Pulse Oximetry 97 97 96 05/27/18 14:00 05/27/18 15:00 05/27/18 16:00 Temperature 98.4 F Pulse Rate 68 76 78 Respiratory Rate 15 11 L 27 H Blood Pressure 104/64 102/67 96/65 L Pulse Oximetry 98 99 98 05/27/18 17:00 05/27/18 17:12 05/27/18 18:00 Temperature Pulse Rate 72 82 72 Respiratory Rate 12 20 11 L Blood Pressure 118/84 106/77 Pulse Oximetry 98 98 97 05/27/18 19:34 05/27/18 20:00 05/27/18 21:00 Temperature 97.7 F Pulse Rate 65 76 Respiratory Rate 19 24 Blood Pressure 110/80 104/80 Pulse Oximetry 96 97 95 05/27/18 22:00 05/27/18 23:00 05/28/18 00:00 Temperature 97.0 F L Pulse Rate 72 76 66 Respiratory Rate 16 11 L 16 Blood Pressure 110/74 86/60 L 62/42 L Pulse Oximetry 95 95 97 05/28/18 00:02 05/28/18 01:00 05/28/18 01:04 Temperature Pulse Rate 62 60 60 Respiratory Rate 8 L 9 L 9 L Blood Pressure 77/48 L 71/45 L 76/51 L Pulse Oximetry 99 98 97 05/28/18 01:06 05/28/18 02:00 05/28/18 03:00 Temperature Pulse Rate 68 64 62 Respiratory Rate 13 10 L 10 L Blood Pressure 79/46 L 98/65 L 105/66 Pulse Oximetry 95 94 L 94 L 05/28/18 04:00 05/28/18 05:00 05/28/18 06:00 Temperature 98.1 F Pulse Rate 56 L 58 L 58 L Respiratory Rate 8 L 10 L 8 L Blood Pressure 102/74 92/59 L 98/61 L Pulse Oximetry 97 96 96 05/28/18 08:10 Temperature Pulse Rate Respiratory Rate Blood Pressure Pulse Oximetry 98 Intake & Output 05/27/18 05/28/18 05/28/18 18:59 06:59 18:59 Intake Total 2260 / 2260 1000 / 1000 Output Total 3750 / 3750 Balance -1490 / -1490 1000 / 1000 Weight 71.5 kg 72.5 kg Intake: IV 1000 / 1000 1000 / 1000 1/2 Normal Saline Inj 1,000 ML 1000 / 1000 @ 84 mls/hr IV.CONT .[id number] Rx#:[id number] Oral 1260 / 1260 Output: Urine 3750 / 3750 Other: Date of Last Bowel Movement 05/26/18 # Bowel Movements 0 Weight On Admission 75.2 kg Narrative: GENERAL: Alert, oriented 3, NAD. SKIN: Warm and dry. HEAD: Normocephalic. EYES: No scleral icterus. No injection or drainage. NECK: Supple, trachea midline. No JVD or lymphadenopathy. CARDIOVASCULAR: Regular rate and rhythm without murmurs, gallops, or rubs. RESPIRATORY: Breath sounds equal bilaterally. No accessory muscle use. GASTROINTESTINAL: Abdomen soft, non-tender, nondistended. MUSCULOSKELETAL: No cyanosis, or edema. BACK: Nontender without obvious deformity. No CVA tenderness. Results - Labs CBC & Chem 7: 05/28/18 04:38 05/28/18 04:38 Laboratory Results - last 24 hr 05/27/18 05/27/18 05/28/18 09:50 16:40 04:38 CBC w Diff Auto diff final WBC 5.9 RBC 4.30 L Hgb 13.5 Hct 38.9 L MCV 90.5 MCH 31.4 MCHC 34.6 RDW 12.9 Plt Count 258 MPV 9.2 Neut % (Auto) 66.0 Lymph % (Auto) 16.6 Castro % (Auto) 15.2 H Eos % (Auto) 1.5 Baso % (Auto) 0.7 Neut # (Auto) 3.9 Lymph # (Auto) 1.0 Castro # (Auto) 0.9 Eos # (Auto) 0.1 Baso # (Auto) 0.0 WBC Differential . Differential Comment . Sodium 129 L D 133 L Potassium Chloride Carbon Dioxide Anion Gap BUN Creatinine Estimated GFR Random Glucose Calcium Total Bilirubin AST ALT Alkaline Phosphatase Total Protein Albumin 05/28/18 04:38 CBC w Diff WBC RBC Hgb Hct MCV MCH MCHC RDW Plt Count MPV Neut % (Auto) Lymph % (Auto) Castro % (Auto) Eos % (Auto) Baso % (Auto) Neut # (Auto) Lymph # (Auto) Castro # (Auto) Eos # (Auto) Baso # (Auto) WBC Differential Differential Comment Sodium 136 Potassium 3.9 Chloride 104 D Carbon Dioxide 26.2 Anion Gap 6 BUN 7 Creatinine 0.99 Estimated GFR 79 L Random Glucose 93 Calcium 8.9 Total Bilirubin 0.5 AST 11 L ALT 18 Alkaline Phosphatase 95 Total Protein 7.3 D Albumin 3.6 D - Imaging Abdomen X-Ray 05/27/18 01:24 CONCLUSION: Benign-appearing abdomen. Head CT 05/27/18 03:33 CONCLUSION: Appearance and position of the shunt catheter is similar to the prior CT, as is the moderate ventriculomegaly. No evidence of acute ventricular obstruction. . Assessment and Plan - Plan Mr. Cintron is a pleasant 52-year-old male with a history of TBI, hydrocephalus status post EMAIL [employer] shunt in 2009 and various psychiatric disorders who presented to the emergency department on 05/26/2018 due to abdominal pain, nausea and vomiting. His sodium level was 119 on admission Probable gastroenteritis -Possibly related to home-made fried chicken he had on 05/24/2018. -Resolved, tolerating breakfast well. Severe hyponatremia -Sodium on admission 119 ==> 136. No evidence of neurological deficits. -We gave NS initially later changed to 1/2 NS. History of TBI History of normal pressure hydrocephalus -Status post EMAIL DES[employer] shunt in [address]. CT scan shows no evidence of EMAIL DESIGNER shunt malfunction. Depression Hx of Seizure disorder Hx of Schizophrenia -Home meds include Lamotrigine, Haldol, Primodone, Baclofen, Gabapentin, Benztropine. -Continue on discharge. Full code. SCDs. Discharge patient to home Condition on discharge: Improved Regular Diet as tolerated Ad Delia activity Rx written: None. BMP in one week. Follow-up with primary care physician within 7-10 days.
[2018-05-28] MEDS ORDERED: Pantoprazole Sodium 20 MG DR Tablet PO SCH (09:00)
[2018-05-28] MEDS ORDERED: Primidone 50 MG Tablet PO SCH (09:00)
[2018-05-28] MEDS ORDERED: Montelukast 10 MG Tablet PO SCH (18:00)
== END 2018-05-28 12:10 | disposition home or self-care (01) ==
LOC: PHED 23:12 → PHEDA 05-27 03:34 → PHICU 05-27 07:21
PROVIDERS: ADMIT Hospitalist; ATTEND Hospitalist